=== PATIENT | female | born 1970 | race African-American/Black ===

== ENCOUNTER 2021-05-24 07:20 | Outpatient (REF) | payer MEDICAID, SELFPAY | END 2021-05-24 07:21 | disposition home or self-care (01) | LOC: HO.HOSX 07:20 | PROVIDERS: Visit Provider Physician Assistant | DX: Z13.89 Encounter for screening for other disorder (principal) ==

== ENCOUNTER 2021-07-16 07:10 | Outpatient (REF) | payer MEDICAID, SELFPAY ==
--- NOTE | ~2021-07-16 | XR_ITS ---
EXAMINATION: XR LEFT HIP WITH PELVIS CLINICAL INFORMATION: Left hip pain. COMPARISON: Left hip radiographs dated 05/17/2016 TECHNIQUE: AP view of the pelvis as well as AP and frog-leg lateral views of the left hip. FINDINGS: No acute fracture or dislocation. Mild left and right hip joint space narrowing with small marginal osteophytes. No osseous erosion. Enthesopathic spurring at the left anterior superior iliac spine. XR/XR hip LT w PEL1V IMPRESSION: Mild left and right hip osteoarthritis.
== END 2021-07-16 07:11 | disposition home or self-care (01) ==
LOC: HO.HOSX 07:10
PROVIDERS: Visit Provider Physician Assistant
DX: M25.552 Pain in left hip (principal); M54.16 Radiculopathy, lumbar region
CPT/HCPCS: 73502; 99202

== ENCOUNTER 2022-01-21 15:52 | Outpatient (REF) | payer MEDICAID, SELFPAY ==
--- NOTE | ~2022-01-21 | XR_ITS ---
EXAMINATION: XR HIP, LEFT , AP pelvis CLINICAL INFORMATION: Pain COMPARISON: None available at the time of this dictation. TECHNIQUE: Frontal and lateral views of the hip acquired. , AP pelvis FINDINGS: There is no evidence of acute fracture or dislocation. There are mild degenerative arthritic changes of the hip evident by sclerotic changes of the acetabular roof and narrowing of the joint space. Mild degenerative changes of the symphysis pubis. Mild degenerative changes of SI joints, there is bone protruding from the left iliac crest probably osteochondroma, this has not changed from prior exam. Adjacent pubic rami are intact. Surrounding soft tissues are unremarkable. XR/XR hip LT w PEL1V IMPRESSION: Mild bilateral degenerative osteoarthritis. Approximately 2 cm osseous structure protruding from the anterior superior iliac crest, this has not changed, probably osteochondroma.
== END 2022-01-21 15:53 | disposition home or self-care (01) ==
LOC: HO.XRAY 15:52
PROVIDERS: Absent Provider Registered Nurse; PCP Registered Nurse; Visit Provider Emergency Medicine
DX: M25.552 Pain in left hip (principal)
CPT/HCPCS: 73502

== ENCOUNTER 2022-02-11 16:11 | Outpatient (REF) | payer MEDICAID, SELFPAY ==
--- NOTE | ~2022-02-11 | XR_ITS ---
EXAMINATION: XR CERVICAL SPINE CLINICAL INFORMATION: Cervicalgia. History confusion, 2014. COMPARISON: Chest radiographs 07/28/2018 TECHNIQUE: The cervical spine is imaged in 4 views: AP, lateral, odontoid x2. FINDINGS: There is been prior fusion C3-C6 with anterior plate and screws and interbody bone grafts. There is incorporation of the grafts with the vertebral endplates. The hardware appears intact. There is no destructive process, osteolysis, or prevertebral soft tissue swelling. No vertebral compression or spondylolisthesis. The odontoid appears intact mild levocurvature upper thoracic spine similar to chest radiograph 2018. There is bridging anterior osteophyte at C2-C3 and smaller anterior partially bridging osteophyte at C6-C7 with borderline disc narrowing C6-C7. No perched facet. There are surgical clips anterior lower neck soft tissues, possibly prior fibroid surgery. The lung apices are clear. XR/XR cervical spine 3V IMPRESSION: -Status post anterior cervical fusion C3-C6. Hardware intact. No destructive process or osteolysis. -Bridging anterior vertebral osteophytes C2-C3 and C6-C7.
== END 2022-02-11 16:12 | disposition home or self-care (01) ==
LOC: HO.XRAY 16:11
PROVIDERS: PCP Nurse Practitioner Primary Care; Visit Provider Nurse Practitioner Primary Care
DX: M54.2 Cervicalgia (principal); Z98.1 Arthrodesis status
CPT/HCPCS: 72040

== ENCOUNTER → 2022-03-04 08:04 | Outpatient (BNVA) | payer MEDICAID, SELFPAY | PROVIDERS: PCP Nurse Practitioner Primary Care; Visit Provider Physician Assistant | DX: M54.16 Radiculopathy, lumbar region (principal) | CPT/HCPCS: 99212 ==

== ENCOUNTER → 2022-03-05 14:59 | Outpatient (BNVA) | payer MEDICAID, SELFPAY | PROVIDERS: PCP Nurse Practitioner Primary Care; Visit Provider Nurse Practitioner Family | DX: M96.1 Postlaminectomy syndrome, not elsewhere classified (principal) | CPT/HCPCS: 99212 ==

== ENCOUNTER 2022-03-11 09:17 | Emergency (ER) | payer MEDICAID, SELFPAY ==
--- NOTE | ~2022-03-11 | CT_ITS ---
EXAMINATION: CT HEAD WITHOUT CONTRAST CLINICAL INFORMATION: Headache. COMPARISON: No relevant prior imaging. TECHNIQUE: Contiguous axial imaging was performed from the skull base to vertex without intravenous administration of contrast. This CT examination was performed using dose optimization techniques as appropriate, variously including the following: *Automated exposure control *Adjustment of mA and/or kV according to patient size (this includes techniques or standardized protocols for targeted exams where dose is matched to indication/reason for exam; i.e. extremities or head) *Use of iterative reconstruction technique DLP: 595 mGy-cm FINDINGS: There is no acute intracranial hemorrhage or abnormal extra-axial collection. No intracranial mass effect or midline shift. Lateral and third ventricles are normal. No hydrocephalus. Dukes-white matter differentiation is preserved and there is no evidence of acute territorial infarct. The calvarium and skull base are intact. Mastoid air cells and middle ear cavities are well aerated. No active paranasal sinus disease. CT/CT head/brain wo con IMPRESSION: Normal CT scan of the head.
[2022-03-11 09:19] VITALS: BP 149/84; PULSE 58; RESP 18; TEMP 36.8; O2SAT 98; BMI 31.3
--- NOTE | 2022-03-11 09:33 | ED.HA ---
HPI - Headache General Chief Complaint: Headache Stated Complaint: migraines Time Seen by Provider: 03/11/22 09:21 Source: patient Mode of arrival: ambulatory Limitations: no limitations History of Present Illness HPI Narrative: 51-year-old female with history of migraine for most of her life came in for evaluation of migraine headache for the past 2 months, migraine has been fluctuating, associated with photophobia, nausea but no vomiting. Patient stated that the symptoms is typical to her regular migraine. Patient was seen by neurologist in the past and diagnosis of migraine was confirmed as reported by the patient. Patient declined any neurological deficit. Reportedly by the patient when the headache stay that long and becomes severe usually come to the get IV injection to relief her pain. Related Data Home Medications Medication Instructions Recorded Confirmed cholecalciferol (vitamin D3) 10 10 mcg PO DAILY 07/16/21 03/05/22 mcg (400 unit) capsule gabapentin 100 mg capsule 100 mg PO DAILY 07/16/21 03/05/22 amitriptyline 10 mg tablet 10 mg PO BEDTIME 03/04/22 03/05/22 valacyclovir 1 gram tablet 1,000 mg PO DAILY 03/04/22 03/05/22 albuterol sulfate 90 mcg/actuation 2 puff INHALATION Q6H PRN 03/05/22 03/05/22 aerosol inhaler Allergies Allergy/AdvReac Type Severity Reaction Status Date / Time Penicillins [PENICILLINS] Allergy Unknown UNKNOWN Verified 03/05/22 15:04 latex Allergy Mild Rash Uncoded 03/05/22 15:04 Review of Systems Review of Systems: All other systems are reviewed and are negative Constitutional: Reports as per HPI and Reports no additional constitutional complaints Eyes: Reports as per HPI and Reports no additional eye complaints Reports system reviewed and no additional complaints, except as documented Cardiovascular: Reports as per HPI and Reports no additional cardiovascular complaints Respiratory: Reports as per HPI and Reports no additional respiratory complaints Gastrointestinal: Reports as per HPI and Reports no additional gastrointestinal complaints Genitourinary: Reports no additional female genitourinary complaints Musculoskeletal: Reports no additional musculoskeletal complaints Skin/Breast: Reports system reviewed and no additional complaints, except as docu Psychiatric: Reports no additional psychiatric complaints Endocrine: Reports no additional endocrine complaints Hematologic/Lymphatic: Reports no additional hematologic/lymphatic complaints Allergic/Immunologic: Reports no additional allergic/immunologic complaints Reports system reviewed and no additional complaints, except as documented and Reports Abnormal speech present PMFSH Past Medical History Surgical History History of spinal surgery Hx of cervical spine surgery Social History Social History Advance Directives: No Advance Directives Information Provided: No Current occupational status: employed 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 Blood pressure normal. Heart rate normal. Respiration rate normal. Temperature normal. Oxygen saturation normal. Appearance: Alert. Oriented X3. No acute distress. Head: Normal external exam. Normocephalic. Atraumatic. No Meyers signs noted. No raccoon eyes noted Eyes: PERRLA. EOMI. Conjunctiva and sclera normal. Eyelids normal. ENT: TM's Normal. Pharynx normal. Uvula midline. Moist mucous membranes. No trismus noted. No drooling noted. No muffled voice noted. Neck: Normal inspection. Neck supple. FROM. No adenopathy. Thyroid Normal. No meningeal signs. No neck mass noted. CVS: Normal heart rate and rhythm. Heart sound normal. No murmurs noted. Pulses normal throughout. Respiratory: No respiratory distress. Painless inspiration. Breath sounds normal. No wheezes/rales/rhonchi noted. Chest nontender. No accessory muscle usage noted or decreased air movement noted. Abdomen: Soft and nontender. Bowel sounds normal in all 4 quadrants. No distention noted. No organomegaly noted. No visible injury noted. Back: No CVA tenderness. Full range of motion noted. Skin: Skin warm and dry. Normal skin color. Normal skin turgor. No rashes/lesions/lacerations noted. Extremities: No lower extremity edema. Extremities exhibit normal range of motion. Extremities nontender. Neuro: Oriented X 3. Cranial nerve exam: II-XII are grossly intact No motor deficit. No sensory deficit. Reflexes normal. Course Course Course Narrative: 51 years old female came in for evaluation migraine lasting for a month, patient with a history of migraine, patient's symptoms is typical for her regular migraine, neuro exam is unremarkable, CT of the head is unremarkable. Patient's symptoms has improved after morphine and Dilaudid with IV hydration and Benadryl. Patient was instructed to follow-up with her neurologist/PCP. MDM - Headache Imaging Data Head CT: Attestation: I personally reviewed and interpreted this imaging study as follows: Radiologist's impression: No acute intracranial pathology. Discharge Plan Discharge Clinical Impression: Migraine Patient Disposition: Home, Self-Care Instructions: Migraine Headache (ED) Prescriptions: No Action cholecalciferol (vitamin D3) 10 mcg (400 unit) capsule 10 mcg PO DAILY 0RF gabapentin 100 mg capsule 100 mg PO DAILY 0RF amitriptyline 10 mg tablet 10 mg PO BEDTIME 0RF valacyclovir 1 gram tablet 1,000 mg PO DAILY 0RF albuterol sulfate 90 mcg/actuation HFA aerosol inhaler 2 puff inhalation Q6H [id number] Referrals: Ana Gruber NP [Primary Care Provider] - Jez Sam MD [Physician] -
[2022-03-11] MEDS: Morphine Sulfate 2 MG/ML CARTRIDGE IVPUSH (09:48)
[2022-03-11] MEDS: 0.9 % Sodium Chloride 1,000 ML 999 ML IV (09:48)
[2022-03-11] MEDS: diphenhydrAMINE HCL 50 MG/ML VIAL 25 MG IVPUSH (09:49)
[2022-03-11] MEDS: ondansetron HCL 4 MG/2 ML VIAL IVPUSH (09:49)
[2022-03-11 10:49] VITALS: BP 143/80; PULSE 51; RESP 17; O2SAT 100
[2022-03-11] MEDS: HYDROmorphone HCl 1 MG/ML SYRINGE IVPUSH (10:50)
[2022-03-11 12:06] VITALS: BP 117/71; PULSE 50; RESP 14; O2SAT 99
== END 2022-03-11 12:28 | disposition home or self-care (01) ==
PROVIDERS: Emergency Provider Emergency Medicine; PCP Nurse Practitioner Primary Care
DX: G43.909 Migraine, unspecified, not intractable, without status migrainosus (principal)
CPT/HCPCS: 70450; 96361; 96374; 96375; 99283; 99284; J1170; J1200; J2270; J2405

== ENCOUNTER 2022-07-03 10:34 | Emergency (ER) | payer MEDICAID, SELFPAY ==
--- NOTE | ~2022-07-03 | XR_ITS ---
EXAMINATION: XR CHEST CLINICAL INFORMATION: Cough and vomiting COMPARISON: None TECHNIQUE: 2 views of the chest were obtained. FINDINGS: Lungs are mildly hypoinflated and clear. Trachea is midline in position. No interstitial disease, consolidation or mass. No pleural effusion or pneumothorax. Cardiac silhouette and pulmonary vessels are normal in size. The mediastinum and lnidsay have normal contour. No acute skeletal findings. Cervical spine fusion hardware is partially included in the [id number]. There has been cement augmentation of L1 and L2 vertebral bodies. XR/XR chest 2V IMPRESSION: No evidence of pneumonia. No acute cardiopulmonary abnormality.
[2022-07-03 11:15] VITALS: BP 140/86; PULSE 82; RESP 18; TEMP 37.2; O2SAT 95; BMI 31.3
[2022-07-03 11:32] LABS: Basophils Percent Auto 0.3 % (0-2); Hematocrit 46.6 % (37.0-47.0); Hemoglobin 15.7 g/dl (12.0-16.0); Lymphocytes Absolute Auto 1.6 X10*3/uL (1.2-4.9); Lymphocytes Percent Auto 54.1 % (20-40); MANUAL DIFF FLAG SCAN; Mean Corpuscular HGB Conc 33.7 g/dl (31.0-35.0); Mean Corpuscular Hemoglobin 30.7 pg (27.0-33.0); Mean Platelet Volume 9.8 fL (9.4-12.3); Monocytes Absolute Auto 0.4 X10*3/uL (0.1-1.2); Monocytes Percent Auto 13.4 % (2-11); Neutrophils Absolute Auto 0.9 x10*3/uL (2.0-8.3); Neutrophils Percent Auto 32.2 % (45-73); Platelet Count 251 X10*3/uL (160-400); Red Blood Count 5.12 X10*6/uL (4.20-5.50); Red Cell Distribution Width 12.4 % (11.0-16.0); SCAN SMEAR FLAG 1; White Blood Count 2.9 X10*3/uL (4.8-10.8)
[2022-07-03 11:43] LABS: COVID-19 Test Positive (Negative); IDNOW Serial# 16C4AD1C
[2022-07-03 11:51] LABS: Anion Gap 20 (12-20); Blood Urea Nitrogen 16 mg/dL (9-16); Calcium 9.2 mg/dL (8.4-10.2); Carbon Dioxide 21 mmol/L (22-29); Chloride 102 mmol/L (96-108); Creatinine Clr Calc Pharmacy 97.7; Estimated Glomerular Filt Rate > 60; Glucose Random 102 mg/dL (60-115); Sodium 139 mmol/L (135-145)
[2022-07-03 11:51] LABS: IDNOW Serial# 9DD0AD1C; Influenza A Negative (Negative); Influenza B2 Negative (Negative)
[2022-07-03 12:05] LABS: SLIDE REVIEW VERIFIED
[2022-07-03 14:19] VITALS: BP 164/81; PULSE 64; RESP 14; TEMP 36.8; O2SAT 100
--- NOTE | 2022-07-03 14:58 | ED_ITS ---
HPI - General Adult General Chief complaint: General Medical Stated complaint: Nauseous, Diarrhea Time Seen by Provider: 07/03/22 14:45 Source: patient Mode of arrival: ambulatory History of Present Illness HPI narrative: 52-year-old female with no significant past medical history presenting to the ED complaining of chills, malaise/fatigue, myalgias, rhinorrhea, cough, and nausea x6 days. Admits tested positive on home COVID-19 test on Thursday. States symptoms are not improving. Denies chest pain, shortness of breath, abdominal pain, vomiting, diarrhea, recent travel. Son presenting to ED with similar symptoms. Onset (ago): day(s) Related Data Home Medications Medication Instructions Recorded Confirmed cholecalciferol (vitamin D3) 10 10 mcg PO DAILY 07/16/21 03/05/22 mcg (400 unit) capsule gabapentin 100 mg capsule 100 mg PO DAILY 07/16/21 03/05/22 amitriptyline 10 mg tablet 10 mg PO BEDTIME 03/04/22 03/05/22 valacyclovir 1 gram tablet 1,000 mg PO DAILY 03/04/22 03/05/22 albuterol sulfate 90 mcg/actuation 2 puff inhalation Q6H PRN 03/05/22 03/05/22 aerosol inhaler Previous Rx's Medication Instructions Recorded ondansetron 4 mg disintegrating 4 mg PO Q8H PRN nausea and 07/03/22 tablet vomiting #10 tabs Allergies Allergy/AdvReac Type Severity Reaction Status Date / Time Penicillins [PENICILLINS] Allergy Unknown UNKNOWN Verified 03/05/22 15:04 latex Allergy Mild Rash Uncoded 03/05/22 15:04 Review of Systems Review of Systems: Constitutional: No Fever, + Chills, +fatigue, +malaise ENT/Mouth: No Ear Pain, + Nasal Congestion, No Sinus Pain, No Hoarseness, + sore throat, + Rhinorrhea, No Swallowing Difficulty Cardiovascular: No Chest Pain, No SOB Respiratory: + Cough, No Sputum, No Wheezing Gastrointestinal: + Nausea, No Vomiting, No Diarrhea, No Constipation, No Abdominal pain Genitourinary: No Dysuria, No Urinary Frequency, No Hematuria, No Flank Pain Musculoskeletal: No joint pain, No Myalgias, No Joint Swelling Skin: No Skin Lesions, No rash Neuro: No Weakness, No Numbness, No Paresthesias Yes all other systems are revi ewed and are negative Constitutional: Constitutional: Reports as per [facility] Past Medical History Attestation statement: The following information was validated with the patient. 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 Exam ED Vital Signs: Vital Signs - 24 hr 07/03/22 11:15 07/03/22 14:19 Temperature 98.9 F 98.3 F Pulse Rate 82 64 Respiratory Rate 18 14 Blood Pressure 140/86 H 164/81 H Pulse Oximetry 95 100 Oxygen Delivery Method Room Air Room Air BMI result Body Mass Index 31.3 Const General: cooperative, healthy appearing and no acute distress Orientation/consciousness: patient oriented x3 Limitations: no limitations HENMT Head: Yes normal to inspection and Yes atraumatic Ears: hearing grossly normal bilaterally, TM's normal bilaterally and mastoids normal General nose exam: Normal external nose present Face and sinus: Yes normal facial exam Mouth: Normal oral and palatal mucosa present Throat: Yes posterior oropharynx normal, Yes tonsils normal, Yes uvula midline and No peritonsillar mass Eyes General: appearance normal, both eyes and all related structures EOM: EOMs intact bilaterally Neck Neck: Yes normal visual inspection and Yes no meningeal signs Resp Effort & Inspection: normal respiratory effort and no respiratory distress Auscultation: clear to auscultation bilaterally, no crackles, no rales and no rhonchi Cardio Rate: regular rate Heart sounds: S1 normal heart sound present and S2 normal heart sound present GI Inspection: Yes normal to inspection Palpation (GI): Soft to palpation, nontender, no guarding and not rigid Skin Rashes: no rashes Wounds: no wounds Neuro General: patient oriented x3, tone normal and no meningeal signs Gait exam (Neuro): Normal gait present Extrem General: Yes normal to inspection Course Course Course Narrative: -COVID-19 positive -leukopenia of 2.9 as expected from COVID-19 infection. Labs otherwise unremarkable XR chest 2V IMPRESSION: No evidence of pneumonia. No acute cardiopulmonary abnormality. -patient tolerated PO in the ED Results discussed with patient including worrisome signs and symptoms and strict return precautions, and when to return to the emergency department. They verbalized understanding and feel safe for discharge at this time. Medical Decision Making MDM Narrative Medical decision making narrative: 52-year-old female with no significant past medical history presenting to the ED complaining of chills, malaise/fatigue, myalgias, rhinorrhea, cough, and nausea x6 days. On exam vital signs stable, NAD, nontoxic appearing, lungs CTA, exam otherwise nonfocal. Concern for COVID-19/viral illness. Rule viral pneumonia. Low suspicion for intra-abdominal pathology Plan: COVID-19 testing, labs, CXR, PO Motrin/Zofran Medical Records Medical records reviewed: Yes I reviewed the patient's medical records. Lab Data Lab results reviewed: Yes I reviewed the patient's lab results. Result diagrams: 07/03/22 11:27 07/03/22 11:27 Labs: Lab Results 07/03/22 07/03/22 07/03/22 Range/Units 11:19 11:19 11:27 WBC 2.9 L (4.8-10.8) X10*3/uL RBC 5.12 (4.20-5.50) X10*6/uL Hgb 15.7 (12.0-16.0) g/dl Hct 46.6 (37.0-47.0) % MCV 91.0 (80.0-98.0) fL MCH 30.7 (27.0-33.0) pg MCHC 33.7 (31.0-35.0) g/dl RDW 12.4 (11.0-16.0) % Plt Count 251 (160-400) X10*3/uL MPV 9.8 (9.4-12.3) fL Immature Gran % (Auto) 0.0 (0.0-0.4) % Neut % (Auto) 32.2 L (45-73) % Lymph % (Auto) 54.1 H (20-40) % [place] % (Auto) 13.4 H (2-11) % Eos % (Auto) 0.0 (0-4) % Baso % (Auto) 0.3 (0-2) % Lymph # (Auto) 1.6 (1.2-4.9) X10*3/uL [place] # (Auto) 0.4 (0.1-1.2) X10*3/uL Eos # (Auto) 0.0 (0.0-0.4) X10*3/uL Baso # (Auto) 0.0 (0.0-0.2) X10*3/uL Abs Immat Gran (auto) 0.00 (0.00-0.03) X10*3/uL Absolute Neuts (auto) 0.9 L (2.0-8.3) x10*3/uL Absolute Nucleated RBC 0.000 (0.0-0.012) X10*3/uL Nucleated RBC % (auto) 0.0 (0.0-0.2) /100WBC Smear Tech's Comments VERIFIED Sodium (135-145) mmol/L Potassium (3.3-5.1) mmol/L Chloride (96-108) mmol/L Carbon Dioxide (22-29) mmol/L Anion Gap (12-20) BUN (9-16) mg/dL Creatinine (0.5-1.4) mg/dL Estim Creat Clear Calc Estimated GFR Random Glucose (60-115) mg/dL Calcium (8.4-10.2) mg/dL COVID-19 (BILL) Positive A (Negative) COVID-19 Clin Com See Note Influenza Type A (RAYO) Negative (Negative) Influenza Type B (RAYO) Negative (Negative) Influenza A & B Note See Note 07/03/22 Range/Units 11:27 WBC (4.8-10.8) X10*3/uL RBC (4.20-5.50) X10*6/uL Hgb (12.0-16.0) g/dl Hct (37.0-47.0) % MCV (80.0-98.0) fL MCH (27.0-33.0) pg MCHC (31.0-35.0) g/dl RDW (11.0-16.0) % Plt Count (160-400) X10*3/uL MPV (9.4-12.3) fL Immature Gran % (Auto) (0.0-0.4) % Neut % (Auto) (45-73) % Lymph % (Auto) (20-40) % [place] % (Auto) (2-11) % Eos % (Auto) (0-4) % Baso % (Auto) (0-2) % Lymph # (Auto) (1.2-4.9) X10*3/uL [place] # (Auto) (0.1-1.2) X10*3/uL Eos # (Auto) (0.0-0.4) X10*3/uL Baso # (Auto) (0.0-0.2) X10*3/uL Abs Immat Gran (auto) (0.00-0.03) X10*3/uL Absolute Neuts (auto) (2.0-8.3) x10*3/uL Absolute Nucleated RBC (0.0-0.012) X10*3/uL Nucleated RBC % (auto) (0.0-0.2) /100WBC Smear Tech's Comments Sodium 139 (135-145) mmol/L Potassium 4.0 (3.3-5.1) mmol/L Chloride 102 (96-108) mmol/L Carbon Dioxide 21 L (22-29) mmol/L Anion Gap 20 (12-20) BUN 16 (9-16) mg/dL Creatinine 0.77 (0.5-1.4) mg/dL Estim Creat Clear Calc 97.7 Estimated GFR > 60 Random Glucose 102 (60-115) mg/dL Calcium 9.2 (8.4-10.2) mg/dL COVID-19 (BILL) (Negative) COVID-19 Clin Com Influenza Type A (RAYO) (Negative) Influenza Type B (RAYO) (Negative) Influenza A & B Note Discharge Plan Discharge Clinical Impression: COVID-19 Patient Disposition: Home, Self-Care Instructions: COVID-19 (Coronavirus Disease 2019) (ED) Additional Instructions: -your blood work and chest x-ray are reassuring.. Zofran as antinausea medication, take as needed for nausea and vomiting At this time you will be okay for discharge. Please self isolate for 10-14 days. Do not expose yourself to others. You may not go to work or school. Please continue to follow cold instructions and wash your hands frequently. You may take Tylenol / Motrin as directed on the bottle for pain or fever. If you have constant or persistent shortness of breath, fever unresolved with medications, chest pain, or your unable to eat or drink please return to the ED CDC Guidelines for home isolation: - Stay away from others - WEAR A MASK if you are sick AND STAY HOME - Cover your mouth and nose with a tissue when you cough or sneeze. Dispose of tissues in a lined trash can and wash your hands immediately with soap and water for at least 20 seconds. If soap and water are not available, clean hands with alcohol-based hand needle punch machine operator that contains at least 60% alcohol. - Clean your hands often with soap and water for at least 20 seconds - Avoid touching your eyes, nose and mouth with unwashed hands - Do not share dishes, drinking glasses, cups, eating utensils, towels, or bed ding with other people in your home. After using these items, wash them thoroughly with soap and water or put in the community action worker. - Clean high-touch surfaces in your isolation area ( sick room and bathroom) every day; let a caregiver clean and disinfect high-touch surfaces in other areas of the home. Clean the area or item with soap and water or another detergent if it is dirty. Then, use a household disinfectant. - Limit contact with pets and animals: If you must care for a pet, wash your saldivar ds before and after interacting with them) Prescriptions: New ondansetron 4 mg tablet,disintegrating 4 mg PO Q8H PRN (Reason: nausea and vomiting) Qty: 10 0RF No Action cholecalciferol (vitamin D3) 10 mcg (400 unit) capsule 10 mcg PO DAILY gabapentin 100 mg capsule 100 mg PO DAILY amitriptyline 10 mg tablet 10 mg PO BEDTIME valacyclovir 1 gram tablet 1,000 mg PO DAILY albuterol sulfate 90 mcg/actuation HFA aerosol inhaler 2 puff inhalation Q6H PRN Referrals: Ana Gruber NP [Primary Care Provider] - 10 days Stand Alone Forms: Work/School Release
[2022-07-03] MEDS: Ondansetron ODT 4 MG TAB.RAPDIS TRANSLINGU (15:00)
[2022-07-03] MEDS: Ibuprofen 600 MG TABLET PO (15:01)
== END 2022-07-03 16:22 | disposition home or self-care (01) ==
PROVIDERS: Emergency Provider Student in an Organized Health Care Education/Training Program; PCP Nurse Practitioner Primary Care
DX: U07.1 COVID-19 (principal)
CPT/HCPCS: 36415; 71046; 80048; 85025; 87502; 87635; 99283; 99284

== ENCOUNTER 2022-09-19 09:58 | Outpatient (REF) | payer MEDICAID, SELFPAY ==
--- NOTE | ~2022-09-19 | MM_ITS ---
EXAMINATION: MM SCREENING DIGITAL BREAST TOMOSYNTHESIS, BILATERAL CLINICAL INFORMATION: Screening. Asymptomatic. The lifetime risk of breast cancer based on the Tyrer-Cuzick Model is 4.7%. COMPARISON: Mammography: October 19, 2017 and September 26, 2016 TECHNIQUE: Digital breast tomosynthesis is performed in both the craniocaudal and mediolateral oblique views along with computer-aided detection (CAD). Synthesized 2D images are generated from the tomosynthesis. FINDINGS: The breasts are heterogeneously dense, which may obscure small masses (ACR BI-RADS breast composition Category c). There are no significant masses, abnormal calcifications, or other abnormalities. MM/MM tomosynthesis screening BI IMPRESSION: No significant changes ASSESSMENT: BI-RADS 1: Negative RECOMMENDATION: Routine annual mammography screening. This patient's information was entered into a reminder system with a target due date for their next mammogram.
== END 2022-09-19 09:59 | disposition home or self-care (01) ==
LOC: HO.MAMMO 09:58
PROVIDERS: PCP Nurse Practitioner Primary Care; Visit Provider Nurse Practitioner Primary Care
DX: Z12.31 Encounter for screening mammogram for malignant neoplasm of breast (principal)
CPT/HCPCS: 77063; 77067

== ENCOUNTER → 2023-01-13 13:29 | Outpatient (BNVA) | payer MEDICAID, SELFPAY | PROVIDERS: PCP Nurse Practitioner Primary Care; Visit Provider Nurse Practitioner Family | DX: Z12.11 Encounter for screening for malignant neoplasm of colon (principal); K21.9 Gastro-esophageal reflux disease without esophagitis | CPT/HCPCS: 99202 ==

== ENCOUNTER 2023-02-18 19:06 | Emergency (ER) | payer MEDICAID, SELFPAY ==
--- NOTE | ~2023-02-18 | CT_ITS ---
EXAMINATION: CT ABDOMEN AND PELVIS WITHOUT CONTRAST CLINICAL INFORMATION: Left lower quadrant tenderness, nausea and vomiting. COMPARISON: None available. TECHNIQUE: Multidetector volumetric imaging was performed from the superior aspect of the liver through the pubic symphysis. Sagittal and coronal reformatted images were obtained on the technologist's workstation. This CT examination was performed using dose optimization techniques as appropriate, variously including the following: *Automated exposure control *Adjustment of mA and/or kV according to patient size (this includes techniques or standardized protocols for targeted exams where dose is matched to indication/reason for exam; i.e. extremities or head) *Use of iterative reconstruction technique DLP: 655 mGy-cm FINDINGS: LUNG BASES: The visualized lung bases are unremarkable. LIVER, GALLBLADDER, AND BILIARY TREE: The liver is normal in size, shape, and mildly diminished in attenuation. Within the left hepatic lobe (4:3), a 1.2 cm cyst is seen with precontrast Hounsfield value of -6.9 units. This is a benign finding, for which no imaging follow-up is recommended. No biliary ductal dilatation is present. The gallbladder is surgically absent. PANCREAS: Unremarkable. SPLEEN: Unremarkable. ADRENAL GLANDS: Unremarkable. KIDNEYS AND URETERS: The kidneys are normal in size, shape, and attenuation. No hydronephrosis, hydroureter, or calculi seen. No perinephric stranding. BLADDER: Unremarkable. GASTROINTESTINAL TRACT: There is mild diverticulosis. Adjacent to diverticula at the junction of the descending and proximal sigmoid colon segments (3:62), there is vigorous focal paracolic fat stranding. There is a small amount of free fluid layering along the left paracolic gutter. There is no mass or paracolic lymphadenopathy noted. No obstruction, free intraperitoneal air or discrete abscess is seen. The vermiform appendix is normal. ABDOMINAL WALL: There is a small fat-containing umbilical hernia. There is a very small fat-containing right inguinal hernia. LYMPH NODES: Adjacent to the gallbladder fossa (3:24), a 1.2 x 0.9 cm lymph node is seen. There are 1.4 x 1.2 cm and 6 mm perigastric lymph nodes (3:24 and 26). Superficial to the pancreas (3:21) a 1.6 x 1.3 cm peripherally calcified lymph node versus focus of fat necrosis is noted. VASCULAR: Unremarkable. PELVIC VISCERA: The uterus and adnexa are unremarkable. OSSEOUS STRUCTURES: There are post-vertebroplasty changes at L1 and L2. There is degenerative disc disease at L4-L5. No acute or aggressive osseous abnormality is seen. CT/CT abdomen pelvis wo IV con IMPRESSION: 1. Findings are consistent with acute diverticulitis of the junction of the descending and proximal sigmoid colon segments. There is a small amount of free fluid layering along the left paracolic gutter. No focal abscess or free intraperitoneal air is seen. Recommend appropriate clinical management and follow-up imaging as clinically indicated. 2. There are nonspecific probable lymph nodes situated within the gallbladder fossa, the perigastric region and the peripancreatic region. Some are mildly enlarged. These should be managed on a clinical basis. At a minimum, recommend short-term follow-up CT imaging in 3-6 months to ensure stability/regression. 3. There are post-vertebroplasty and degenerative changes of the lumbar spine. No aggressive osseous lesion is seen. Fleischner guidelines were followed.
[2023-02-18 19:16] VITALS: BP 147/93; PULSE 58; RESP 18; TEMP 37.2; O2SAT 100; BMI 31.6
--- NOTE | 2023-02-18 19:18 | ED.ABDPAIN ---
HPI - Abdominal Pain General Chief Complaint: Abdominal Pain <JUDITH Lambert - Last Filed: 02/18/23 19:22> Stated Complaint: abdominal pain, N/V, knot pain in groin <JUDITH Lambetr - Last Filed: 02/18/23 19:22> Time Seen by Provider: 02/18/23 21:07 <JUDITH Lambert - Last Filed: 02/18/23 19:22> Source: patient <Shena Lynch MD - Last Filed: 02/18/23 22:55> Mode of arrival: ambulatory <Shena Lynch MD - Last Filed: 02/18/23 22:55> Limitations: no limitations <Shena Lynch MD - Last Filed: 02/18/23 22:55> History of Present Illness HPI narrative: Patient comes to the emergency room complaining of 3 days of suprapubic pressure. Patient states that when she has a bowel movement she can feel something dropping down to the vaginal vault, patient thinks it is her uterus or bladder. Patient states he does not hurt but it feels something heavy move down words. Patient denies any hematuria or dysuria, no vaginal discharge. Patient states that she has history of urine problems in the past <Shena Lynch MD - Last Filed: 02/18/23 22:55> Related Data Home Medications: Home Medications Medication Instructions Recorded Confirmed cholecalciferol (vitamin D3) 10 10 mcg PO DAILY 07/16/21 03/05/22 mcg (400 unit) capsule gabapentin 100 mg capsule 100 mg PO DAILY 07/16/21 03/05/22 amitriptyline 10 mg tablet 10 mg PO BEDTIME 03/04/22 03/05/22 valacyclovir 1 gram tablet 1,000 mg PO DAILY 03/04/22 03/05/22 albuterol sulfate 90 mcg/actuation 2 puff inhalation Q6H PRN 03/05/22 03/05/22 aerosol inhaler albuterol sulfate 90 mcg/actuation 2 puff inhalation Q6H PRN 09/01/22 aerosol inhaler (ProAir HFA) fluticasone propionate 110 1 puff inhalation BID 09/01/22 mcg/actuation HFA aerosol inhaler (Flovent HFA) naproxen 500 mg tablet 500 mg PO BID 09/01/22 sumatriptan succinate 50 mg tablet 50 mg PO Q2-4H PRN 09/01/22 (Imitrex) valacyclovir 500 mg tablet 1,000 mg PO DAILY 09/01/22 varicella-zoster gE vac,2 of 2 50 IM 09/01/22 mcg IM suspension (Shingrix gE Antigen Component) Previous Rx's Medication Instructions Recorded ondansetron 4 mg disintegrating 4 mg PO Q8H PRN nausea and 07/03/22 tablet vomiting #10 tabs bisacodyl 5 mg tablet,delayed 10 mg PO ONCE 1 day #2 tabs 01/13/23 release (Dulcolax (bisacodyl)) famotidine 20 mg tablet (Pepcid) 20 mg PO BEDTIME #30 tabs 01/13/23 polyethylene glycol 3350 17 238 g PO ONCE #238 grams 01/13/23 gram/dose oral powder (Miralax) levofloxacin 500 mg tablet 500 mg PO DAILY #9 tabs 02/18/23 metronidazole 500 mg tablet 500 mg PO BID #19 tabs 02/18/23 <JUDITH Lambert - Last Filed: 02/18/23 19:22> Allergies/Adverse Reactions: Allergies Allergy/AdvReac Type Severity Reaction Status Date / Time Penicillins [PENICILLINS] Allergy Unknown UNKNOWN Verified 01/13/23 13:53 latex Allergy Mild Rash Uncoded 01/13/23 13:53 <JUDITH Lambert - Last Filed: 02/18/23 19:22> Review of Systems Review of Systems Constitutional : No Weight loss, No Fever, No Chills, No Night Sweats, No Fatigue, No Malaise ENT/Mouth : No Hearing loss, No Ear Pain, No Nasal Congestion, No Sinus Pain, No Hoarseness, No sore throat, No Rhinorrhea, No Swallowing Difficulty Eyes: No Eye Pain, No Swelling, No Redness, No Foreign Body, No Discharge, No Vision Changes Cardiovascular : No Chest Pain, No SOB, No Dyspnea on Exertion, No Orthopnea, No Edema, No Palpitations Respiratory : No Cough, No Sputum, No Wheezing, No Smoke Exposure, No Dyspnea Gastrointestinal : No Nausea, No Vomiting, No Diarrhea, No Constipation, No abdominal Pain, No Hematochezia, No Melena Genitourinary : Patient complaining of her uterus possibly bulging into the vaginal canal with bearing down, no irregular bleeding, No Dysuria, No Urinary Frequency, No Hematuria, No Urinary Incontinence, No Urgency, No Flank Pain, No Urinary Flow Changes, No Hesitancy Musculoskeletal : No joint pain, No Myalgias, No Joint Swelling Skin : No Skin Lesions, No rash Neuro : No Weakness, No Numbness, No Paresthesias, No Loss of Consciousness, No Dizziness, No Headache Psych : No Anxiety/Panic, No Depression, No SI/HI/AH/VH, No Social Issues, Heme/Lymph: No Bruising, No Bleeding,No Lymphadenopathy Endocrine : No Polyuria, No Polydipsia, No Temperature Intolerance <Shena Lynch MD - Last Filed: 02/18/23 22:55> [facility] Past Medical History Surgical History: Surgical History (Updated 01/13/23 @ 13:57 by Franki Fisher) History of spinal surgery Hx of cervical spine surgery Hx of tubal ligation <JUDITH Lambert - Last Filed: 02/18/23 19:22> Family History Family History: Family History (Updated 01/13/23 @ 13:56 by Franki Fisher) Mother HTN (hypertension) Diabetes Father No problems noted. 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/[employer] <JUDITH Lambert - Last Filed: 02/18/23 19:22> Physical Exam ED Vital Signs: Vital Signs - 24 hr 02/18/23 19:16 02/18/23 22:01 Temperature 98.9 F 97.8 F Pulse Rate 58 51 Respiratory Rate 18 18 Blood Pressure 147/93 H 137/67 Pulse Oximetry 100 100 Oxygen Delivery Method Room Air Room Air BMI result Body Mass Index 31.6 <JUDITH Lambert - Last Filed: 02/18/23 19:22> Vital Signs - 24 hr 02/18/23 19:16 02/18/23 22:01 Temperature 98.9 F 97.8 F Pulse Rate 58 51 Respiratory Rate 18 18 Blood Pressure 147/93 H 137/67 Pulse Oximetry 100 100 Oxygen Delivery Method Room Air Room Air BMI result Body Mass Index 31.6 <Shena Lynch MD - Last Filed: 02/18/23 22:55> Const Other: Appearance: Alert. Oriented X3. No acute distress. Eyes: Pupils equal, round and reactive to light. ENT: Pharynx normal. Neck: Normal inspection. Neck supple. No lymph nodes noted. No crepitus CVS: Normal heart rate and rhythm. Pulses normal. Normal S1 and S2 Respiratory: No respiratory distress. Breath sounds normal. No Wheezing. No rales Abdomen: Soft and nontender. No rigidity. No distention. No palpable hernias Skin: Skin warm and dry. Normal skin color. Normal skin turgor. Extremities: No lower extremity edema. No Lacerations. No Rash Neuro: Oriented X 3. No motor deficit. No sensory deficit. Moving all extremities. No slurred speech. CN 2 through 12 grossly intact Psych: calm, cooperative, normal affect <Shena Lynch MD - Last Filed: 02/18/23 22:55> Course Course Course Narrative: RME - 52 yo female presents to the ER for evaluation of acute onset of lower abdominal pain, nausea, vomiting that started at 3am yesterday. She also reported a hard time urinating and pain with urination. +lower back pain, worse on the left. No fever, hematuria. +LLQ tenderness on exam. Plan: labs, UA, CT abd/pelvis <JUDITH Lambert - Last Filed: 02/18/23 19:22> Medical Decision Making Medical Decision Making [facility] Narrative: -patient's hematology, chemistry and urine within normal limits. -CT scan shows diverticulitis. Patient's abdominal exam was fairly benign -patient was given the 1st dose of Levaquin and metronidazole in the emergency room -discussed with the patient that if she continues having suprapubic pressure especially with bearing down, she may have the uterus versus bladder prolapse, patient will follow-up with her primary care physician <Shena Lynch MD - Last Filed: 02/18/23 22:55> Lab Data [facility] Lab Attestation statement: I reviewed the patient's lab results. <Shena Lynch MD - Last Filed: 02/18/23 22:55> Result Diagrams: 02/18/23 19:30 02/18/23 19:30 <JUDITH Lambert - Last Filed: 02/18/23 19:22> Labs: Lab Results 02/18/23 02/18/23 02/18/23 Range/Units 19:30 19:30 20:40 WBC 7.8 (4.8-10.8) X10*3/uL RBC 4.25 (4.20-5.50) X10*6/uL Hgb 13.1 (12.0-16.0) g/dl Hct 39.7 (37.0-47.0) % MCV 93.4 (80.0-98.0) fL MCH 30.8 (27.0-33.0) pg MCHC 33.0 (31.0-35.0) g/dl RDW 12.6 (11.0-16.0) % Plt Count 252 (160-400) X10*3/uL MPV 9.9 (9.4-12.3) fL Immature Gran % (Auto) 0.1 (0.0-0.4) % Neut % (Auto) 52.6 (45-73) % Lymph % (Auto) 37.7 (20-40) % [place] % (Auto) 7.5 (2-11) % Eos % (Auto) 1.8 (0-4) % Baso % (Auto) 0.3 (0-2) % Lymph # (Auto) 2.9 (1.2-4.9) X10*3/uL [place] # (Auto) 0.6 (0.1-1.2) X10*3/uL Eos # (Auto) 0.1 (0.0-0.4) X10*3/uL Baso # (Auto) 0.0 (0.0-0.2) X10*3/uL Abs Immat Gran (auto) 0.01 (0.00-0.03) X10*3/uL Absolute Neuts (auto) 4.1 (2.0-8.3) x10*3/uL Absolute Nucleated RBC 0.000 (0.0-0.012) X10*3/uL Nucleated RBC % (auto) 0.0 (0.0-0.2) /100WBC Sodium 141 (135-145) mmol/L Potassium 3.4 (3.3-5.1) mmol/L Chloride 102 (96-108) mmol/L Carbon Dioxide 31 H (22-29) mmol/L Anion Gap 11 L (12-20) BUN 13 (9-16) mg/dL Creatinine 0.72 (0.5-1.4) mg/dL Estim Creat Clear Calc 105.0 Estimated GFR > 60 Random Glucose 122 H (60-115) mg/dL Calcium 9.9 D (8.4-10.2) mg/dL Magnesium 2.0 (1.6-2.6) mg/dL Total Bilirubin 0.5 (0.0-1.0) mg/dL Direct Bilirubin 0.1 (0.0-0.5) mg/dL AST 15 (5-31) U/L ALT 19 (0-31) U/L Alkaline Phosphatase 94 (39-117) U/L Total Protein 7.6 (6.5-8.0) g/dL Albumin 4.2 (3.5-5.0) g/dL Lipase 23 (8-78) U/L Urine Color Yellow Urine Appearance Clear Urine pH 6.0 (5.0-9.0) Ur Specific [place] 1.020 (1.005-1.025) Urine Protein Negative (Neg-Trace) mg/dL Urine Glucose (UA) Negative (Negative) mg/dL Urine Ketones Negative (Negative) mg/dL Urine Blood Negative (Negative) Urine Nitrite Negative (Negative) Ur Leukocyte Esterase Negative (Negative) <JUDITH Lambert - Last Filed: 02/18/23 19:22> Lab Results 02/18/23 02/18/23 02/18/23 Range/Units 19:30 19:30 20:40 WBC 7.8 (4.8-10.8) X10*3/uL RBC 4.25 (4.20-5.50) X10*6/uL Hgb 13.1 (12.0-16.0) g/dl Hct 39.7 (37.0-47.0) % MCV 93.4 (80.0-98.0) fL MCH 30.8 (27.0-33.0) pg MCHC 33.0 (31.0-35.0) g/dl RDW 12.6 (11.0-16.0) % Plt Count 252 (160-400) X10*3/uL MPV 9.9 (9.4-12.3) fL Immature Gran % (Auto) 0.1 (0.0-0.4) % Neut % (Auto) 52.6 (45-73) % Lymph % (Auto) 37.7 (20-40) % [place] % (Auto) 7.5 (2-11) % Eos % (Auto) 1.8 (0-4) % Baso % (Auto) 0.3 (0-2) % Lymph # (Auto) 2.9 (1.2-4.9) X10*3/uL [place] # (Auto) 0.6 (0.1-1.2) X10*3/uL Eos # (Auto) 0.1 (0.0-0.4) X10*3/uL Baso # (Auto) 0.0 (0.0-0.2) X10*3/uL Abs Immat Gran (auto) 0.01 (0.00-0.03) X10*3/uL Absolute Neuts (auto) 4.1 (2.0-8.3) x10*3/uL Absolute Nucleated RBC 0.000 (0.0-0.012) X10*3/uL Nucleated RBC % (auto) 0.0 (0.0-0.2) /100WBC Sodium 141 (135-145) mmol/L Potassium 3.4 (3.3-5.1) mmol/L Chloride 102 (96-108) mmol/L Carbon Dioxide 31 H (22-29) mmol/L Anion Gap 11 L (12-20) BUN 13 (9-16) mg/dL Creatinine 0.72 (0.5-1.4) mg/dL Estim Creat Clear Calc 105.0 Estimated GFR > 60 Random Glucose 122 H (60-115) mg/dL Calcium 9.9 D (8.4-10.2) mg/dL Magnesium 2.0 (1.6-2.6) mg/dL Total Bilirubin 0.5 (0.0-1.0) mg/dL Direct Bilirubin 0.1 (0.0-0.5) mg/dL AST 15 (5-31) U/L ALT 19 (0-31) U/L Alkaline Phosphatase 94 (39-117) U/L Total Protein 7.6 (6.5-8.0) g/dL Albumin 4.2 (3.5-5.0) g/dL Lipase 23 (8-78) U/L Urine Color Yellow Urine Appearance Clear Urine pH 6.0 (5.0-9.0) Ur Specific [place] 1.020 (1.005-1.025) Urine Protein Negative (Neg-Trace) mg/dL Urine Glucose (UA) Negative (Negative) mg/dL Urine Ketones Negative (Negative) mg/dL Urine Blood Negative (Negative) Urine Nitrite Negative (Negative) Ur Leukocyte Esterase Negative (Negative) <Shena Lynch MD - Last Filed: 02/18/23 22:55> Radiology Impression Discussion of test interpretation with radiology: I have reviewed the radiologist's reading. <Shena Lynch MD - Last Filed: 02/18/23 22:55> Radiologist Impression: FINDINGS: LUNG BASES: The visualized lung bases are unremarkable.? LIVER, GALLBLADDER, AND BILIARY TREE: The liver is normal in size, shape, and mildly diminished in attenuation. Within the left hepatic lobe (4:3), a 1.2 cm cyst is seen with precontrast Hounsfield value of -6.9 units. This is a benign finding, for which no imaging follow-up is recommended. No biliary ductal dilatation is present. The gallbladder is surgically absent.? PANCREAS: Unremarkable.? SPLEEN: Unremarkable.? ADRENAL GLANDS: Unremarkable.? KIDNEYS AND URETERS: The kidneys are normal in size, shape, and attenuation. No hydronephrosis, hydroureter, or calculi seen. No perinephric stranding. ? BLADDER: Unremarkable.? GASTROINTESTINAL TRACT: There is mild diverticulosis. Adjacent to diverticula at the junction of the descending and proximal sigmoid colon segments (3:62), there is vigorous focal paracolic fat stranding. There is a small amount of free fluid layering along the left paracolic gutter. There is no mass or paracolic lymphadenopathy noted. No obstruction, free intraperitoneal air or discrete abscess is seen. The vermiform appendix is normal. ABDOMINAL WALL: There is a small fat-containing umbilical hernia. There is a very small fat-containing right inguinal hernia.? LYMPH NODES: Adjacent to the gallbladder fossa (3:24), a 1.2 x 0.9 cm lymph node is seen. There are 1.4 x 1.2 cm and 6 mm perigastric lymph nodes (3:24 and 26). Superficial to the pancreas (3:21) a 1.6 x 1.3 cm peripherally calcified lymph node versus focus of fat necrosis is noted. VASCULAR: Unremarkable. PELVIC VISCERA: The uterus and adnexa are unremarkable.? OSSEOUS STRUCTURES: There are post-vertebroplasty changes at L1 and L2. There is degenerative disc disease at L4-L5. No acute or aggressive osseous abnormality is seen.? CT/CT abdomen pelvis wo IV con IMPRESSION: ? 1. Findings are consistent with acute diverticulitis of the junction of the descending and proximal sigmoid colon segments. There is a small amount of free fluid layering along the left paracolic gutter. No focal abscess or free intraperitoneal air is seen. Recommend appropriate clinical management and follow-up imaging as clinically indicated. ? 2. There are nonspecific probable lymph nodes situated within the gallbladder fossa, the perigastric region and the peripancreatic region. Some are mildly enlarged. These should be managed on a clinical basis. At a minimum, recommend short-term follow-up CT imaging in 3-6 months to ensure stability/regression. ? 3. There are post-vertebroplasty and degenerative changes of the lumbar spine. No aggressive osseous lesion is seen. ? Fleischner guidelines were followed. <Shena Lynch MD - Last Filed: 02/18/23 22:55> Medications Administered Discontinued Medications Generic Name Dose Route Start Last Admin Trade Name Freq PRN Reason Stop Dose Admin Acetaminophen 975 mg 02/18/23 21:22 02/18/23 22:37 Acetaminophen 325 Mg Tablet PO 02/18/23 21:23 975 mg ONCE ONE Administration <JUDITH Lambert - Last Filed: 02/18/23 19:22> Medications Administered Discontinued Medications Generic Name Dose Route Start Last Admin Trade Name Freq PRN Reason Stop Dose Admin Acetaminophen 975 mg 02/18/23 21:22 02/18/23 22:37 Acetaminophen 325 Mg Tablet PO 02/18/23 21:23 975 mg ONCE ONE Administration <Shena Lynch MD - Last Filed: 02/18/23 22:55> Discharge Plan Discharge Clinical Impression: Diverticulitis <JUDITH Lambert - Last Filed: 02/18/23 19:22> Patient Disposition: Home, Self-Care <UJDITH Lambert - Last Filed: 02/18/23 19:22> Instructions: Diverticulitis (ED), Cystocele (ED), Diverticulitis Diet (ED) <JUDITH Lambert - Last Filed: 02/18/23 19:22> Additional Instructions: Please follow-up with your primary care physician tomorrow. If you have any worsening or new symptoms, please return to the emergency room or call 911 <JUDITH Lambert - Last Filed: 02/18/23 19:22> Prescriptions: New levofloxacin 500 mg tablet 500 mg PO DAILY Qty: 9 0RF metronidazole 500 mg tablet 500 mg PO BID Qty: 19 0RF No Action ondansetron 4 mg tablet,disintegrating 4 mg PO Q8H PRN (Reason: nausea and vomiting) Qty: 10 0RF cholecalciferol (vitamin D3) 10 mcg (400 unit) capsule 10 mcg PO DAILY gabapentin 100 mg capsule 100 mg PO DAILY amitriptyline 10 mg tablet 10 mg PO BEDTIME valacyclovir 1 gram tablet 1,000 mg PO DAILY albuterol sulfate 90 mcg/actuation HFA aerosol inhaler 2 puff inhalation Q6H PRN albuterol sulfate [ProAir HFA] 90 mcg/actuation HFA aerosol inhaler 2 puff inhalation Q6H PRN fluticasone propionate [Flovent HFA] 110 mcg/actuation HFA aerosol inhaler 1 puff inhalation BID naproxen 500 mg tablet 500 mg PO BID sumatriptan succinate [Imitrex] 50 mg tablet 50 mg PO Q2-4H PRN Rx Instructions: do not exceed 4 doses per 24 hrs valacyclovir 500 mg tablet 1,000 mg PO DAILY Shingrix gE Antigen Component 50 mcg suspension for reconstitution IM bisacodyl [Dulcolax (bisacodyl)] 5 mg tablet,delayed release (DR/EC) 10 mg PO ONCE 1 Days Qty: 2 0RF Rx Instructions: take 2 tabs at noon the day before your colonoscopy polyethylene glycol 3350 [Miralax] 17 gram/dose powder 238 g PO ONCE Qty: 238 0RF Rx Instructions: As directed by gastroenterology department at [facility] famotidine [Pepcid] 20 mg tablet 20 mg PO BEDTIME Qty: 30 3RF <JUDITH Lambert - Last Filed: 02/18/23 19:22> Referrals: William Monique MD [Physician] - (Possible cystocele) <JUDITH Lambert - Last Filed: 02/18/23 19:22>
[2023-02-18 19:37] LABS: MANUAL DIFF FLAG NO
[2023-02-18 19:38] LABS: Basophils Percent Auto 0.3 % (0-2); Eosinophils Absolute Auto 0.1 X10*3/uL (0.0-0.4); Eosinophils Percent Auto 1.8 % (0-4); Hematocrit 39.7 % (37.0-47.0); Hemoglobin 13.1 g/dl (12.0-16.0); Imm Gran Abs Auto 0.01 X10*3/uL (0.00-0.03); Imm Gran Pct Auto 0.1 % (0.0-0.4); Lymphocytes Absolute Auto 2.9 X10*3/uL (1.2-4.9); Lymphocytes Percent Auto 37.7 % (20-40); Mean Corpuscular Hemoglobin 30.8 pg (27.0-33.0); Mean Corpuscular Volume 93.4 fL (80.0-98.0); Mean Platelet Volume 9.9 fL (9.4-12.3); Monocytes Absolute Auto 0.6 X10*3/uL (0.1-1.2); Monocytes Percent Auto 7.5 % (2-11); Neutrophils Absolute Auto 4.1 x10*3/uL (2.0-8.3); Neutrophils Percent Auto 52.6 % (45-73); Platelet Count 252 X10*3/uL (160-400); Red Blood Count 4.25 X10*6/uL (4.20-5.50); Red Cell Distribution Width 12.6 % (11.0-16.0); White Blood Count 7.8 X10*3/uL (4.8-10.8)
[2023-02-18 19:53] LABS: Alanine Aminotransferase 19 U/L (0-31); Albumin Level 4.2 g/dL (3.5-5.0); Alkaline Phosphatase 94 U/L (39-117); Anion Gap 11 (12-20); Aspartate Amino Transferase 15 U/L (5-31); Bilirubin Direct 0.1 mg/dL (0.0-0.5); Bilirubin Total 0.5 mg/dL (0.0-1.0); Blood Urea Nitrogen 13 mg/dL (9-16); Calcium 9.9 mg/dL (8.4-10.2); Carbon Dioxide 31 mmol/L (22-29); Chloride 102 mmol/L (96-108); Estimated Glomerular Filt Rate > 60; Glucose Random 122 mg/dL (60-115); Lipase 23 U/L (8-78); Potassium 3.4 mmol/L (3.3-5.1); Sodium 141 mmol/L (135-145); Total Protein 7.6 g/dL (6.5-8.0)
[2023-02-18 21:06] LABS: Appearance Urine Clear; Color Urine Yellow; Glucose Urine UA Negative (Negative); Leukocyte Esterase Urine Negative (Negative); Nitrite Urine Negative (Negative); Urine Blood Negative (Negative); Urine Ketones Negative (Negative); Urine Protein Negative (Neg-Trace)
[2023-02-18 22:01] VITALS: BP 137/67; PULSE 51; RESP 18; TEMP 36.6; O2SAT 100
[2023-02-18] MEDS: Acetaminophen 325 MG TABLET 975 MG PO (22:37)
[2023-02-18] MEDS: levoFLOXacin 500 MG TABLET PO (23:14)
[2023-02-18] MEDS: metroNIDAZOLE 500 MG TABLET PO (23:14)
--- NOTE | 2023-02-18 23:19 | PC.NURSE ---
pt a&o, no sob or chest pain, pt still feel a little nauseous at discharge, pt medicated per Mar, Reviewed discharge instructions, pt verbalized understanding.
== END 2023-02-18 23:22 | disposition home or self-care (01) ==
PROVIDERS: Physician Assistant; Emergency Provider Emergency Medicine; PCP Nurse Practitioner Primary Care
DX: K57.32 Diverticulitis of large intestine without perforation or abscess without bleeding (principal); Z79.899 Other long term (current) drug therapy
CPT/HCPCS: 36415; 74176; 80048; 80076; 81003; 83690; 83735; 85025; 99284

== ENCOUNTER → 2023-03-31 08:44 | Outpatient (BNVA) | payer MEDICAID, SELFPAY | PROVIDERS: PCP Nurse Practitioner Primary Care; Visit Provider Obstetrics & Gynecology | DX: N81.4 Uterovaginal prolapse, unspecified (principal) | CPT/HCPCS: 99202 ==

== ENCOUNTER → 2023-04-01 08:35 | Outpatient (BNVA) | payer MEDICAID, SELFPAY | PROVIDERS: PCP Nurse Practitioner Primary Care; Visit Provider Anesthesiology | DX: M96.1 Postlaminectomy syndrome, not elsewhere classified (principal) | CPT/HCPCS: 99212 ==

== ENCOUNTER 2023-04-02 08:02 | Outpatient (REF) | payer MEDICAID, SELFPAY ==
--- NOTE | ~2023-04-02 | CT_ITS ---
EXAMINATION: CT ABDOMEN AND PELVIS WITH CONTRAST CLINICAL INFORMATION: Lower abdominal pain COMPARISON: CT abdomen pelvis 02/18/2023 TECHNIQUE: Multidetector volumetric images were obtained from the superior aspect of the liver through the pubic symphysis following administration 85 mL of Omnipaque 350 intravenous contrast. Sagittal and coronal reformatted images were obtained on the technologist's workstation. This CT examination was performed using dose optimization techniques as appropriate, variously including the following: *Automated exposure control *Adjustment of mA and/or kV according to patient size (this includes techniques or standardized protocols for targeted exams where dose is matched to indication/reason for exam; i.e. extremities or head) *Use of iterative reconstruction technique DLP: 710 mGy-cm FINDINGS: Visualized lung bases are well aerated. The liver is normal in size and demonstrates diffusely decreased attenuation. Stable approximately 1 cm left hepatic cyst. The gallbladder surgically absent. The pancreas, spleen and adrenal glands are unremarkable. Symmetrically enhancing kidneys. There is no hydronephrosis of either kidney. Normal caliber loops of small and large bowel. Mild colonic diverticulosis without CT evidence to suggest active diverticulitis. Normal caliber abdominal aorta. No retroperitoneal lymphadenopathy. A few previously visualized prominent lymph nodes in the perigastric and periportal region appear similar. The bladder is normal in appearance. Unremarkable CT appearance of the uterus. No gross free pelvic fluid. Small fat-containing right inguinal hernia. No inguinal lymphadenopathy. Degenerative changes of the spine. Patient is status post cement augmentation of the L1 and L2 vertebral bodies. CT/CT abdomen pelvis w IV con IMPRESSION: 1. No CT evidence for acute abnormality within the abdomen or pelvis. 2. Diffusely decreased liver attenuation suggesting hepatic steatosis. Correlation with liver enzymes recommended. 3. Mild colonic diverticulosis without CT evidence to suggest active diverticulitis. Fleischner guidelines were followed.
[2023-04-02] MEDS: iohexoL 350 MG/ML 100 ML INFUS..BTL IV (11:03)
[2023-04-02] MEDS: Barium Sulfate Oral (Mocha) 450 ML ORAL.SUSP 900 ML PO (11:09)
[2023-04-02 14:25] LABS: Creatinine POC 0.4 mg/dL (0.5-1.4); GFR POC > 60
== END 2023-04-02 08:03 | disposition home or self-care (01) ==
LOC: HO.CT 08:02
PROVIDERS: PCP Nurse Practitioner Primary Care; Visit Provider Registered Nurse
DX: R10.30 Lower abdominal pain, unspecified (principal)
CPT/HCPCS: 74177; 82565; Q9967

== ENCOUNTER 2023-04-14 13:56 | Day surgery (SDC) | payer MEDICAID, SELFPAY ==
[2023-04-10 13:58] VITALS: BMI 31.8
[2023-04-14] VITALS (7 sets, daily range): BP systolic 128–168; BP diastolic 67–87; PULSE 56–84; RESP 18; TEMP 36.1–36.3; O2SAT 95–100; BMI 34.5; BMI 35.2
--- NOTE | 2023-04-14 14:04 | MHC.SHP ---
Pre-Procedural Eval Section A Date of Service: 04/14/23 Section B Chief Complaint: GERD, screening Relevant Family History (Specify if Yes): No Relevant Social History: None Present Medications: see Short Stay Collaborative assessment Medical History: Significant History (gerd) History of Previous Operations: Relevant previous surgery/procedure and date(s) (History of spinal surgery Hx of cervical spine surgery Hx of tubal ligation) Allergies: Allergies Allergy/AdvReac Type Severity Reaction Status Date / Time Penicillins [PENICILLINS] Allergy Unknown UNKNOWN Verified 04/01/23 08:42 latex Allergy Mild Rash Uncoded 03/31/23 09:00 Review of Systems Sugical H&P ROS: Negative: Constitution, Cardiovascular, Respiratory, Neurological, Psychiatric, Hem-Onc, Allergic/Immunologic, Gastrointestinal, Genitourinary, Musculoskeletal, Integumentary, Endocrine and Eyes/Ears/Nose/Throat Exam Surgical H&P Exam: Normal: HEENT, Normal: Heart, Normal: Lungs, Normal: Extremities, Normal: Abdomen, Normal: Skin and Normal: Neurological Plan Diagnosis/Plan: Unchanged I have reviewed the history and physical and performed a pertinent physical examination on my patient. No changes have occurred unless specified. Time Spent With Patient Time: Total time managing care of this patient today ____ minutes.
[2023-04-14] MEDS: Lactated Ringers 1,000 ML 100 ML IVCONT (14:32)
--- NOTE | 2023-04-14 14:33 | P.CONAN_ITS ---
HPI - Anesthesia Eval Consult details Narrative: 52-year-old female presenting for routine colonoscopy in endoscopy. Reports history of easily exacerbated asthma. Has not taken her inhalers since yesterday. Usually takes fluticasone regularly and albuterol for rescue. PMFSH Active Problems Active Problems: All Active Problems (Updated 04/14/23 @ 14:13 by Rajani Cesar RN) Lumbar radiculopathy (Acute) Postlaminectomy syndrome, cervical (Acute) COVID-19 (Acute) Cystocele with uterine prolapse (Acute) Past Medical History Medical History Asthma Elevated cholesterol Hx of gastroesophageal reflux (GERD) Hx of herpes genitalis Family History Family History Mother HTN (hypertension) Diabetes Father No problems noted. 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 Allergies Allergy/AdvReac Type Severity Reaction Status Date / Time ondansetron [From Zofran] Allergy Intermediate Hives Verified 04/14/23 16:31 Penicillins [PENICILLINS] Allergy Unknown UNKNOWN Verified 04/14/23 14:18 latex Allergy Mild Rash Uncoded 03/31/23 09:00 Active Medications: Current Medications Lactated Ringer's (Lr) 1,000 mls @ 100 mls/hr IVCONT .Q10H EDMUND Last Admin: 04/14/23 14:32 Dose: 100 mls/hr Home Medications Medication Instructions Recorded Confirmed Last Taken Type cholecalciferol (vitamin D3) 10 10 mcg PO DAILY 07/16/21 03/05/22 Unknown History mcg (400 unit) capsule (Vitamin D3) gabapentin 100 mg capsule 100 mg PO DAILY PRN Pain 07/16/21 03/05/22 Unknown History (Neurontin) amitriptyline 10 mg tablet 10 mg PO BEDTIME 03/04/22 03/05/22 Unknown History valacyclovir 1 gram tablet 1,000 mg PO DAILY 03/04/22 03/05/22 Unknown History albuterol sulfate 90 mcg/actuation 2 puff inhalation Q6H PRN 03/05/22 03/05/22 Unknown History aerosol inhaler (ProAir HFA) Shortness Of Breath Or Wheezing fluticasone propionate 110 1 puff inhalation BID 09/01/22 Unknown History mcg/actuation HFA aerosol inhaler (Flovent HFA) naproxen 500 mg tablet (Naprosyn) 500 mg PO BID PRN Pain 09/01/22 Unknown History sumatriptan succinate 50 mg tablet 50 mg PO Q2-4H PRN Migraine 09/01/22 Unknown History (Imitrex) Headache varicella-zoster gE vac,2 of 2 50 IM 09/01/22 Unknown History mcg IM suspension (Shingrix gE Antigen Component) famotidine 20 mg tablet (Pepcid) 20 mg PO BEDTIME PRN Gastric Reflux 04/14/23 Unknown History Exam Exam Date and Time: April 14, 2023 1433 Height,Weight and Vital Signs: Height 5 ft 7 in Weight 225 lb Last Vital Signs Temp 97.0 F 04/14/23 14:05 Pulse 84 04/14/23 14:05 Resp 18 04/14/23 14:05 BP 128/74 04/14/23 14:05 Pulse Ox 95 04/14/23 14:05 O2 Del Method Room Air 04/14/23 14:05 Airway Mallampati Class: I TM Dist: >3cm Neck ROM: Full Loose/Missing/Broken Teeth: No Assessment and Plan Assessment Anesthesia Assessment: Anesthesia Plan Discussed and Chart Reviewed Final Anesthetic Review Family History of Problems with Anesthesia: No History of Problems with Anesthesia: No NPO: Yes ASA Class: III Final Preanesthetic Review: No Changes in Pt Med Stat, Meds/Allgs Chart Reviewed, Consent Obtained/Reviewed and Anes Risks/Benef Reviewed Patient Risk: Intermediate Procedure Risk: Low Anesthetic Plan Anesthetic Plan: MAC: Disposition: Standard PACU
[2023-04-14] MEDS: Albuterol Sulfate 2.5 MG, Albuterol/Iprat 2.5/0.5MG 3 ML 3 ML INHALE (14:47)
--- NOTE | 2023-04-14 14:56 | P.OP_ITS ---
Operative Note Operative Note Date of Service: 04/14/23 Narrative: Operative Information Procedure Description: EGD, Colonoscopy Indication: GERD, epigastric pain Anesthesia: MAC FLEXIBLE TRANSORAL UPPER GASTROINTESTINAL ENDOSCOPY AND COLONOSCOPY PROCEDURE NOTE UPPER ENDOSCOPY Consent: Indications for the procedure and potential complications of bleeding, perforation, reaction to medications and missed diagnosis were discussed with the patient and informed consent was obtained. Instrument: Olympus GIF H 190 J mid size upper endoscope Monitoring: Vital signs and clinical assessment, continuous EKG monitoring, Pulse oximetry, Carbon Dioxide monitoring and blood pressure monitoring were done throughout the procedure. Procedure: The patient was placed in the left lateral decubitis position and pre-procedure medications were administered and a bite block was placed. The endoscope was inserted into the mouth and advanced under direct vision to the third part of duodenum. A careful inspection was made as the upper endoscope was withdrawn including a retroflexed examination of the proximal stomach; Findings and interventions are described below. Findings: Larynx:normal Esophagus: GE junction at 40 cm, diaphragm hiatus at 40 cm, normal mucosa, bx taken from distal esophagus and GEJ Stomach: Patchy erythema and scarring with bile acid reflux noted. Biopsies were obtained. Grade 2 flap valve on retroflexed examination of the cardia. Duodenum: Normal bulb and descending duodenum, bx taken Intervention: Biopsies as noted above COLONOSCOPY Instrument: Olympus variable stiffness pediatric scope 190L Colonoscopy Monitoring: Vital signs and clinical assessment, continuous EKG monitoring, Pulse oximetry, Carbon Dioxide monitoring and blood pressure monitoring were done throughout the procedure. Colon withdrawal time was 9 minutes. Procedure: The patient was placed in the left lateral decubitis position and pre-procedure medications were administered. After a digital rectal examination of the ano-rectum, the video colonoscope was inserted into the rectum and advanced through the colon to the cecum/TI. The colonoscope was slowly withdrawn in a retrograde panoramic fashion and the colon mucosa was carefully examined including a retroflexed view of the rectum. Findings and interventions are described below. Procedure Difficulty:moderate, pressure applied--redundant colon Findings: Terminal Ileum-normal Cecum:normal Ascending Colon: diverticula noted Transverse Colon -normal Descending Colon:normal Sigmoid Colon:moderate diverticulosis noted Rectum: Retroflexion with small internal hemorrhoids, grade I Anorectum - normal Colon preparation: [place] Bowel Preparation Scale Right colon; 2 Transverse colon: 3 Left colon; 3 (0 = Unprepared colon segment with mucosa not seen due to solid stool that cannot be cleared. 1 = Portion of mucosa of the colon segment seen, but other areas of the colon segment not well seen due to staining, residual stool and/or opaque liquid. 2 = Minor amount of residual staining, small fragments of stool and/or opaque liquid, but mucosa of colon segment seen well. 3 = Entire mucosa of colon segment seen well with no residual staining, small fragments of stool or opaque liquid) Impression and Post Procedure Diagnosis: Endoscopy Findings: gastritis Colonoscopy Findings: redundant colon diverticulosis internal hemorrhoids Plan: Await Pathology results Repeat Colonoscopy in 10 years or earlier if clinically indicated High fiber diet leaflet avoid straining at stool, epsom salts and sitz bath, anusol supps or cream if h pylori pos then treat, can consider trial of ursodiol for the bile acid reflux and see if helps if ongoing sx then GES to r/o gastroparesis Above findings were reviewed with the patient and relevant handouts were provided if indicated.
[2023-04-14] MEDS: ondansetron HCL 4 MG/2 ML VIAL IVPUSH (15:58)
[2023-04-14] MEDS: diphenhydrAMINE HCL 50 MG/ML VIAL 12.5 MG IVPUSH (16:05)
== END 2023-04-14 17:20 | disposition home or self-care (01) ==
PROVIDERS: PCP Nurse Practitioner Primary Care; Visit Provider Internal Medicine Gastroenterology
PROC: (CPT 45378; principal; 2023-04-14 15:20)
DX: Z12.11 Encounter for screening for malignant neoplasm of colon (principal); K57.30 Diverticulosis of large intestine without perforation or abscess without bleeding; K64.0 First degree hemorrhoids; Q43.8 Other specified congenital malformations of intestine; K21.9 Gastro-esophageal reflux disease without esophagitis; K29.70 Gastritis, unspecified, without bleeding; Z88.0 Allergy status to penicillin; Z91.040 Latex allergy status
CPT/HCPCS: 45378; 43239; 88305; 88342; J1200; J2250; J2405

== ENCOUNTER → 2023-04-14 13:56 | Outpatient (BNV) | payer MEDICAID, SELFPAY | PROVIDERS: PCP Nurse Practitioner Primary Care; Visit Provider Internal Medicine Gastroenterology | DX: K21.9 Gastro-esophageal reflux disease without esophagitis (principal); Z12.11 Encounter for screening for malignant neoplasm of colon; K57.31 Diverticulosis of large intestine without perforation or abscess with bleeding | CPT/HCPCS: 43239; 45378 ==

== ENCOUNTER 2023-04-27 13:27 | Outpatient (AMB) | payer MEDICAID, SELFPAY ==
--- NOTE | 2023-04-27 13:32 | MHC.OFFVIS ---
Intake Vital Signs 04/27/23 13:33 Height 5 ft 7 in Weight 199 lb 11.821 oz BMI 31.3 BP 183/98 H Blood Pressure Location Lt brachial Position Sitting Pulse 56 Intake Visit Reasons: S/p egd/colon- [facility] Intake Note: Ayla presents in office as a est.patient for a post-op for egd/colo PT CC: pt reports having abdominal pain , bloating , constipation , GERD ,obstipation pt denies any other GI Issues Process Improvement Specialist Required: No Accompanied by: Self / Same As Patient Allergies ondansetron [From Zofran] Allergy (Intermediate, Verified 04/27/23 13:40) Hives Penicillins [PENICILLINS] Allergy (Unknown, Verified 04/27/23 13:40) UNKNOWN latex Allergy (Mild, Uncoded 04/27/23 13:40) Rash HPI S/p egd/colon- [facility] HPI Details LAST VISIT (1) Screen for colon cancer: ?Code(s): Z12.11 - Encounter for screening for malignant neoplasm of colon ?Plan: Patient denies any cardiac or respiratory symptoms.? Denies any issues with anesthesia in the past.? Denies any history of sleep apnea.? No history infectious diseases in the past or present.? Not on any anticoagulation therapy.? No family or personal history of colon cancer or polyps, however as mentioned above patient not unsure if her uncles had prostate or colorectal cancer.? Patient denies melena, hematochezia, unintentional weight loss or ribbon like stools.? Discussed at length the pre-procedure,? prep, diet & medications as well as what to expect prior, during and after the procedure.?? Stressed the importance of good bowel prep. ?Recommended the use of Vaseline or Calmoseptine OTC & baby wipes with bowel movements to promote comfort.? ? (2) GERD (gastroesophageal reflux disease): ?Code(s): K21.9 - Gastro-esophageal reflux disease without esophagitis ?Qualifiers: ?Esophagitis presence:?esophagitis presence not specified? Qualified Code(s):?K21.9 - Gastro-esophageal reflux disease without esophagitis ?Plan: Discussed with patient avoiding dietary triggers a late night snacking.? Staying upright for minimal 3 hours after meals discussed with patient.? Will start her on famotidine.? Patient will call us if this not going to be effective.? We will send her for upper endoscopy to further evaluate for gastritis, esophagitis, Dewitt's, gastric or peptic ulcer, H pylori.? I will see patient after the procedure, sooner on as needed basis.? Patient is agreeable to this plan and verbalizes understanding of instructions.? She was given the opportunity to ask questions and all questions answered.? UPPER ENDOSCOPY AND COLONOSCOPY Findings: Larynx:normal Esophagus: GE junction at 40? cm, diaphragm hiatus at 40 cm, normal mucosa, bx taken from distal esophagus and GEJ Stomach: Patchy erythema and scarring with bile acid reflux noted. Biopsies were obtained. Grade 2 flap valve on retroflexed examination of the cardia. Duodenum: Normal bulb and descending duodenum, bx taken Intervention: Biopsies as noted above Findings: Terminal Ileum-normal Cecum:normal Ascending Colon: diverticula noted Transverse Colon -normal Descending Colon:normal Sigmoid Colon:moderate diverticulosis noted Rectum: Retroflexion with small internal hemorrhoids, grade I Anorectum - normal Colon preparation: [place] Bowel Preparation Scale Right colon; 2 Transverse colon: 3 Left colon; 3 (0 = Unprepared colon segment with mucosa not seen due to solid stool that cannot be cleared. 1 = Portion of mucosa of the colon segment seen, but other areas of the colon segment not well seen due to staining, residual stool and/or opaque liquid. 2 = Minor amount of residual staining, small fragments of stool and/or opaque liquid, but mucosa of colon segment seen well. 3 = Entire mucosa of colon segment seen well with no residual staining, small fragments of stool or opaque liquid) Impression and Post Procedure Diagnosis: Endoscopy Findings: gastritis Colonoscopy Findings: redundant colon diverticulosis internal hemorrhoids Plan: Await Pathology results Repeat Colonoscopy in 10 years or earlier if clinically indicated High fiber diet leaflet avoid straining at stool, epsom salts and sitz bath, anusol supps or cream if h pylori pos then treat, can consider trial of ursodiol for the bile acid reflux and see if helps if ongoing sx then GES to r/o gastroparesis PATHOLOGY RESULTS Diagnosis A.? Duodenum, biopsy:? Duodenal mucosa within normal limits; preserved villous architecture and no increased intraepithelial lymphocytes seen. B.? Stomach, biopsy:? Gastric antral and body mucosa with mild chronic inactive gastritis; negative for Helicobacter pylori, intestinal metaplasia and dysplasia. C.? Gastroesophageal junction, biopsy:? Gastric cardia-type mucosa with mild chronic inflammation; no squamous mucosa seen; negative for intestinal metaplasia and dysplasia.? D.? Esophagus, distal, biopsy:? Squamous mucosa within normal limits; negative for inflammation (including eosinophils), fungal organisms, intestinal metaplasia and dysplasia. TODAY'S VISIT: Patient is here today for follow-up and to discuss upper endoscopy and colonoscopy results. Patient denies any ill effects from the prep, anesthesia or procedure itself. Patient states that she has been constipated in unable to move her bowels. Patient states that she is also unable to pass gas. Had to use suppository in order for her to have a small bowel movement. Patient denies melena, hematochezia, unintentional weight loss or ribbon like stools. Upper endoscopy and colonoscopy results discussed with patient. Patient denies dyspepsia, dysphagia or odynophagia. Reports postprandial abdominal bloating. Denies epigastric discomfort or pain. [facility] Medical History (Updated 04/27/23 @ 16:31 by Lissette Joshi, [facility]) Asthma Diverticulitis Elevated cholesterol Hx of gastroesophageal reflux (GERD) Hx of herpes genitalis Migraine Surgical History History of spinal surgery Hx of cervical spine surgery Hx of colonoscopy Hx of esophagogastroduodenoscopy Hx of partial thyroidectomy Hx of tubal ligation Family History Mother HTN (hypertension) Diabetes Father No problems noted. 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 Reproductive History Menstrual Age of Menarche: 10 Review of Systems Const Denies weight gain and Denies weight loss ENT Reports no additional complaints, Denies dysphagia and Denies odynophagia Card Reports no additional complaints Resp Reports no additional complaints GI Reports abdominal pain (occasional), Denies belching, Denies melena, Reports bloating, Reports constipation, Denies dysphagia, Denies excessive flatus, Denies dyspepsia, Reports heartburn, Denies diarrhea, Denies loose stools, Denies nausea, Denies odynophagia and Denies vomiting Musc Reports no additional complaints Neuro Reports no additional complaints Psych Reports no additional complaints Endo Reports no additional complaints Physical Exam Vital Signs: Last Vital Signs Pulse 56 04/27/23 13:33 BP 183/98 H 04/27/23 13:33 BMI result Body Mass Index 31.3 Const General: healthy appearing, no acute distress and well developed Nutritional Appearance: obese Orientation/consciousness: patient oriented x3 HEENT Head: Yes normal to inspection, Yes normocephalic and Yes atraumatic Face and sinus: Yes normal facial exam Mouth: Normal oral and palatal mucosa present Throat: Yes posterior oropharynx normal, Yes tonsils normal and Yes uvula midline Eyes General: appearance normal, both eyes and all related structures Neck Neck: Yes normal visual inspection, Yes full ROM and Yes trachea midline Thyroid: Thyroid normal Resp Effort & Inspection: normal respiratory effort, able to speak in complete sentences, no tracheal deviation and symmetric chest movement Auscultation: clear to auscultation bilaterally Cardio Rate: regular rate Heart sounds: S1 normal heart sound present and S2 normal heart sound present GI Inspection: Yes normal to inspection, No distended and Yes obesity Palpation (GI): Soft to palpation, not firm, nontender and No hepatosplenomegaly present Auscultation: normal bowel sounds General: Yes no CVA tenderness Back/Spine/Pelvis Back: no CVA tenderness Skin General skin exam: elasticity normal, turgor normal and dry skin Neuro General: patient oriented x3 Psych Appearance: grossly normal Mental Status: mental status grossly normal Speech and movement: Normal speech and movement present Affect: normal affect Assessment & Plan Assessment & Plan (1) GERD (gastroesophageal reflux disease): Code(s): K21.9 - Gastro-esophageal reflux disease without esophagitis Qualifiers: Esophagitis presence: without esophagitis Qualified Code(s): K21.9 - Gastro-esophageal reflux disease without esophagitis Plan: Patient reports that she is taking famotidine on as needed basis. Patient denies any epigastric discomfort or pain. Small amount of bile seen in the stomach on upper endoscopy. Patient denies any epigastric pain or discomfort. She is not moving her bowels well, will send her script for Linzess so she can move her bowels better. Patient denies any dyspepsia, dysphagia or odynophagia. (2) Postprandial abdominal bloating: Code(s): R14.0 - Abdominal distension (gaseous) Plan: Patient reports postprandial abdominal bloating. No FODMAP diet discussed with patient. List of food recommended as well as list of food to avoid given to patient (3) Chronic idiopathic constipation: Code(s): K59.04 - Chronic idiopathic constipation Plan: Patient reports to be constipated, reports abdominal bloating if no bowel movement for couple days. Start Linzess 145 mcg daily. I will see patient in 3 months, sooner on as needed basis. Patient is agreeable to this plan and verbalizes understanding of instructions. She was given the opportunity to ask questions and all questions answered. Thank you for allowing me to participate in her care Medications: New linaclotide (Linzess) 145 mcg PO DAILY 30 caps 2RF Discontinued famotidine 20 mg PO BEDTIME 30 tabs 3RF K21.9 - Gastro-esophageal reflux disease without esophagitis Coding Level of Care Code Est Pt Level 4 (16599) Diagnoses GERD (gastroesophageal reflux disease) K21.9 Esophagitis presence: without esophagitis Postprandial abdominal bloating R14.0 Chronic idiopathic constipation K59.04 Time Spent (min) 35 Comment 25 minutes spent with patient and additional 10 minutes spent reviewing her records
[2023-04-27 13:33] VITALS: BP 183/98; PULSE 56; BMI 31.3
== END 2023-04-27 14:40 | disposition home or self-care (01) ==
LOC: HO.HGI 13:27
PROVIDERS: PCP Nurse Practitioner Primary Care; Visit Provider Nurse Practitioner Family
DX: K21.9 Gastro-esophageal reflux disease without esophagitis (principal); R14.0 Abdominal distension (gaseous); K59.04 Chronic idiopathic constipation
CPT/HCPCS: 99214

== ENCOUNTER → 2023-04-27 13:27 | Outpatient (BNVA) | payer MEDICAID, SELFPAY | PROVIDERS: PCP Nurse Practitioner Primary Care; Visit Provider Nurse Practitioner Family | DX: K59.04 Chronic idiopathic constipation (principal); K21.9 Gastro-esophageal reflux disease without esophagitis; R14.0 Abdominal distension (gaseous) | CPT/HCPCS: 99214 ==

== ENCOUNTER → 2023-06-05 10:01 | Day surgery (SDC) | payer MEDICAID, SELFPAY ==
[2023-06-03 08:47] VITALS: BMI 31.6
[2023-06-05 10:14] VITALS: BP 150/77; PULSE 52; RESP 20; TEMP 36.6; O2SAT 98
--- NOTE | 2023-06-05 11:52 | PC.NURSE ---
pt left didnot want to wait for procedure or to talk to dr esteban. 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 gave patient number to pain office to reschedule. attempted to comvince patient to stay she sts she thought only 1 hour procedure and cant wait
== END ==
PROVIDERS: PCP Nurse Practitioner Primary Care; Visit Provider Anesthesiology
DX: M96.1 Postlaminectomy syndrome, not elsewhere classified (principal); Z53.29 Procedure and treatment not carried out because of patient's decision for other reasons

== ENCOUNTER 2023-06-11 10:02 | Outpatient (AMB) | payer MEDICAID, SELFPAY ==
--- NOTE | 2023-06-11 10:14 | MHC.OFFVIS ---
Intake Vital Signs 06/11/23 10:15 Height 5 ft 7 in Weight 210 lb BMI 32.9 BP 136/85 Blood Pressure Location Lt brachial Position Sitting Pulse 58 Pulse Source Pulse Oximeter Pulse Oximetry (%) 97 Oxygen Delivery Method Room Air Intake Visit Reasons: Discussion about SCS Trial & other options Intake Note: Pain today 04/13. Globe Changer Required: No Accompanied by: Self / Same As Patient Allergies ondansetron [From Zofran] Allergy (Intermediate, Verified 06/11/23 10:15) Hives Penicillins [PENICILLINS] Allergy (Unknown, Verified 06/11/23 10:15) UNKNOWN latex Allergy (Mild, Uncoded 04/27/23 13:40) Rash HPI HPI Comments History of Present Illness Details Patient is a pleasant 53 years old female presents today for follow up to review SCS trial and other treatments options for her chronic low back and neck pain. Patient was scheduled to undergo lumbar SCS trial with Dr. Stinson on 06/05/23 but canceled procedure on the day of SCS trial due to post-operative activity restrictions which would conflict with her current family and work obligations. 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 Patient reports she was not communicated about restrictions well prior to procedure and therefore was not been able to make any arrangements this her family or work. Today, we went into a greater discussion about SCS trial and implant and activity restrictions while caring for the device and precautions for incision and dressing post-operatively. Patient was also encouraged to reach out to [employer] local representatives for SCS if needed to enhance her understanding of neuromodulation for a longer term pain management. Patient also reports today of worsening of her back symptoms with radiation to her left lower extremity and tenderness in the projection of sacroiliac joint injection. She reports increased back pain with bending forward or lifting her children or patients, pain with walking or standing. Pain negatively affects her daily general activities, functioning, sleep, mood, social interactions and quality of life. Reports numbness with tingling in LLE posteriorly with intermittent weakness that frequently disturbances her gait, balance to the point that she has to use walker. She ambulates with antalgic slow gait today with forward flexed position. Reports over the counter measures and daily physical activities have not been beneficial for her pain relief. We will proceed with lumbar spine MRI for further evaluation. Patient is aware that her Behavioral evaluation is valid for one year from the time of assessment was done. Denies any fever, abdominal or groin pain, bladder or bowel incontinence or saddle anesthesia. PRIOR Dr. Stinson 04/01/23: Ayla returns to to my office again to discuss possibility of treating her lower back pain and cervical pain related to postlaminectomy syndrome of cervical spine with [employer] spinal cord stimulator. She is a subject of psychological treatment and [facility] and the might give her psychological evaluation. After that will be able to go for trial. The trial 1st will be cervical and then lumbar. Implantation could be done cervical 1st and after that lumbar. Alternatively if her psychological evaluation will not be able to be performed by [facility], [facility] psychological evaluation needs to be performed. When psychological evaluation will be ready 1 where the other we will schedule her for cervical trial with [employer]. d PRIOR: Ayla is very pleasant 49 years old female who is in my office complaining on cervicalgia pain in neck as well as low back pain in the projection of the sacral bone. This pain radiates into bilateral lower extremities with numbness. She reports that she can sleep normally, she cannot do activities of daily living she can take care of herself but she cannot function normally she is currently unemployed she is looking for employment however due to COVID-19 infection she has problems with childcare the patient is self mobile but needs walker. She reports that cold application weather changes in movements aggravate her pain and the he had called in do not change her pain. She reports some vague recollection of some surgery in the neck however she points out on the scar which is located across her sternum. She also reports a surgery in her lower back but the scars are resembling more likely a kyphoplasty there. In any way the kyphoplasty which was done probably is at L2 area and not related to her pain which is across the sacral bone. She reports that she received multiple treatments in the [place] and she reports multiple studies in [place] she reports some injections in [address] [place] [id number] unfortunately those studies and injection nature is a are not available for me. ? Her past medical history significant for hypothyroidism headaches and dizziness. Her past surgical history is significant for presume mobile thyroidectomy presume mobile anterior fusion ACDF cholecystectomy and bilateral tubal ligation and presume oval kyphoplasty at [facility] in 2018. ? She reports that she is not smoking cigarettes, she is not drinking alcohol she is legally obtaining and smoking Marline her on a to alleviate her pain. This patient is unfortunately the very poor historian. She is interested in spinal cord stimulation to alleviate her pains. She has [employer] brochure with her today on the visit. She was explained that we need to obtain the thorough information about her she will sign the requests about the information release to [facility], [facility] and treating the [facility] to obtain images this patient and what procedures were done so far for her [facility] Medical History Urinary incontinence HLD (hyperlipidemia) Pre-diabetes Depression Migraine Asthma Hx of gastroesophageal reflux (GERD) Hx of herpes genitalis Elevated cholesterol Diverticulitis Surgical History Hx of cholecystectomy History of subtotal thyroidectomy History of kyphoplasty Hx of fusion of cervical spine Hx of colonoscopy Hx of esophagogastroduodenoscopy Hx of partial thyroidectomy Hx of tubal ligation Family History Mother HTN (hypertension) Diabetes Father No problems noted. 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 Alert and oriented. Mood and affect appropriate. Follows and participates in conversation appropriately. Respiratory effort is unlabored. No cough. Able to transition from sit to stand unassisted. Back/Spine/Pelvis Other: Patient ambulates with slow, antalgic gait with mild limping in forward flexed position. Can flex forward to 50-60 degrees and extend to 5-10 degrees before experiencing lumbar pain, worse pain with bending. Demonstrates 5/5 right and 4/5 left strength of quadriceps bilaterally as well as 5/5 right and 4/5 left flexion/dorsiflexion of bilateral feet against resistance. 2+ pedal pulses bilaterally. Seated straight leg rise with dorsiflexion positive on the left. +1 patellar and diminished achilles reflexes bilaterally, worse on the left. Facet loading test positive bilaterally. Wiliam sign, Demarcus?s, Pelvic compression and Stinchfield tests are positive bilaterally, left>right. No groin pain with I/E hip rotations. Valsalva maneuver negative. Cervical Spine: cervical ROM normal, cervical muscular tenderness, pain with cervical ROM, Cervical spine scars present and No Cervical spine tenderness Thoracic/Lumbar Spine: thoracic and lumbar spine normal to inspection, Thoracic/lumbar spine scar(s), Lasegue's sign positive on the left and localized, pain with thoraco-lumbar ROM, paraspinal muscle tenderness, thoraco-lumbar ROM limited, No thoracic spinal tenderness and lumbar spinal tenderness at L4 and at L5 Sacroiliac joints: bilaterally tender to palpation Results Reviewed Results Reviewed: No imaging is available for review today. Assessment & Plan Assessment & Plan (1) Postlaminectomy syndrome, cervical: Code(s): M96.1 - Postlaminectomy syndrome, not elsewhere classified (2) Lumbar radiculopathy: Code(s): M54.16 - Radiculopathy, lumbar region (3) Chronic pain syndrome: Code(s): G89.4 - Chronic pain syndrome (4) Lumbar spondylosis: Code(s): M47.816 - Spondylosis without myelopathy or radiculopathy, lumbar region Plan 1. The trialed and failed therapy has been reviewed with the patient at greater length today, including post-operative precautions and activity restictions. The risks, consequences, alternatives, and benefits of various treatment options were discussed with the patient in great detail, including conservative management, injections and procedures. Patient is not sure if SCS trial can be implemented in her current lifestyle, given her family and work obligations. 2. For her left sided radiculopathy and no most recent or prior spine imaging available today, we will proceed with lumbar spine MRI?to assess for neural integrity and compression. Patient will return to the clinic to discuss results of the MRI findings when it is done and consider interventional therapy as indicated. Patient is aware to call if pain worsens or if she develops any red flag symptoms to seek emergency care. Patient denies any cauda equina syndrome symptoms at this time.? All questions and concerns have been answered today to patient's satisfaction. Follow-up for MRI results and sooner as needed. Orders: Orders MR lumbar spine wo/w con Today M54.16 - Radiculopathy, lumbar region, M96.1 - Postlaminectomy syndrome, not elsewhere classified Coding Level of Care Code Est Pt Level 4 (48531) Diagnoses Postlaminectomy syndrome, cervical M96.1 Lumbar radiculopathy M54.16 Chronic pain syndrome G89.4 Lumbar spondylosis M47.816
[2023-06-11 10:15] VITALS: BP 136/85; PULSE 58; O2SAT 97; BMI 32.9
== END 2023-06-11 10:46 | disposition home or self-care (01) ==
PROVIDERS: PCP Nurse Practitioner Primary Care; Visit Provider Nurse Practitioner Family
DX: M96.1 Postlaminectomy syndrome, not elsewhere classified (principal); M54.16 Radiculopathy, lumbar region; G89.4 Chronic pain syndrome; M47.816 Spondylosis without myelopathy or radiculopathy, lumbar region
CPT/HCPCS: 99214

== ENCOUNTER → 2023-06-11 10:02 | Outpatient (BNVA) | payer MEDICAID, SELFPAY | PROVIDERS: PCP Nurse Practitioner Primary Care; Visit Provider Nurse Practitioner Family | DX: M96.1 Postlaminectomy syndrome, not elsewhere classified (principal); M54.16 Radiculopathy, lumbar region; M47.816 Spondylosis without myelopathy or radiculopathy, lumbar region; G89.4 Chronic pain syndrome | CPT/HCPCS: 99212 ==

== ENCOUNTER 2023-09-03 10:28 | Outpatient (REF) | payer MEDICAID, SELFPAY ==
[2023-09-03 12:18] LABS: Estimated Average Glucose 114 mg/dL; Hemoglobin A1c % 5.6 % (<6.0)
[2023-09-03 13:05] LABS: TSH reflex Free T4 1.11 uIU/mL (0.32-4.0)
== END 2023-09-03 10:29 | disposition home or self-care (01) ==
LOC: HO.HHCL 10:28
PROVIDERS: Visit Provider Nurse Practitioner Primary Care
DX: E07.9 Disorder of thyroid, unspecified (principal); R53.83 Other fatigue; R73.03 Prediabetes
CPT/HCPCS: 36415; 83036; 84443; 85025

== ENCOUNTER 2023-09-30 09:41 | Outpatient (REF) | payer MEDICAID, SELFPAY | END 2023-09-30 09:42 | disposition home or self-care (01) | LOC: HO.MRI 09:41 | PROVIDERS: PCP Nurse Practitioner Primary Care; Visit Provider Nurse Practitioner Family | DX: M96.1 Postlaminectomy syndrome, not elsewhere classified (principal); M54.16 Radiculopathy, lumbar region | CPT/HCPCS: 72148 ==

== ENCOUNTER 2024-04-22 11:03 | Outpatient (REF) | payer MEDICAID, SELFPAY ==
--- NOTE | ~2024-04-22 | US_ITS ---
EXAMINATION: US PELVIS CLINICAL INFORMATION: Pelvic pain COMPARISON: CT abdomen and pelvis the 2022 TECHNIQUE: Ultrasound of the pelvis is performed using both transabdominal and transvaginal transducers along with Doppler. Transvaginal imaging is performed due to inadequate visualization transabdominally. FINDINGS: Uterus: The uterus is anteverted and measures 7.1 x 3.5 x 4.8 cm. The double wall endometrial thickness is 2 mm. Small amount of fluid seen within the endometrial canal. Echogenic focus within the endometrium measuring 0.2 x 0.2 x 0.2 cm. Adnexa: Both ovaries are visualized. There is normal color flow to the adnexa. There is no ovarian torsion. There is no pelvic ascites or fluid collection. Right ovary measures 2.8 x 1.6 x 1.4 cm. 3.2 mL Left ovary measures 1.9 x 1.5 x 1 cm. 1.5 mL US/US pelvic and transvaginal IMPRESSION: Small amount of fluid seen within the endometrial canal. Echogenic focus within the endometrium measuring 0.2 x 0.2 x 0.2 cm. This may represent a polyp, and could be further evaluated with hysterosonography, as clinically indicated.
== END 2024-04-22 11:04 | disposition home or self-care (01) ==
LOC: HO.US 11:03
PROVIDERS: Visit Provider Nurse Practitioner Primary Care
DX: Z12.31 Encounter for screening mammogram for malignant neoplasm of breast (principal); R10.2 Pelvic and perineal pain
CPT/HCPCS: 76830; 76856; 77063; 77067

== ENCOUNTER → 2024-04-22 12:30 | Outpatient (BNV) | payer MEDICAID, SELFPAY | PROVIDERS: Visit Provider Radiology Diagnostic Radiology | DX: Z12.31 Encounter for screening mammogram for malignant neoplasm of breast (principal) | CPT/HCPCS: 77063; 77067 ==

== ENCOUNTER 2024-05-13 09:14 | Outpatient (REF) | payer MEDICAID, SELFPAY ==
[2024-05-13 11:28] LABS: Anion Gap 11 (12-20); Blood Urea Nitrogen 13 mg/dL (9-16); Calcium 9.5 mg/dL (8.4-10.2); Carbon Dioxide 27 mmol/L (22-29); Chloride 107 mmol/L (96-108); Estimated Glomerular Filt Rate > 60; Glucose Random 98 mg/dL (60-115); Potassium 4.2 mmol/L (3.3-5.1); Sodium 141 mmol/L (135-145)
[2024-05-13 11:48] LABS: Creatinine Urine 135.21 mg/dL; Microalbum/Creatinine Ratio Ur 9.6 ug/mg cr (<30)
== END 2024-05-13 09:15 | disposition home or self-care (01) ==
LOC: HO.HHCL 09:14
PROVIDERS: Visit Provider Nurse Practitioner Primary Care
DX: I10 Essential (primary) hypertension (principal)
CPT/HCPCS: 36415; 80048; 82043; 82570

== ENCOUNTER 2024-07-07 16:34 | Outpatient (REF) | payer MEDICAID, SELFPAY ==
[2024-07-07 16:47] LABS: MANUAL DIFF FLAG NO
[2024-07-07 17:13] LABS: Basophils Percent Auto 0.3 % (0-2); Eosinophils Absolute Auto 0.2 X10*3/uL (0.0-0.4); Eosinophils Percent Auto 2.1 % (0-4); Hematocrit 40.2 % (37.0-47.0); Hemoglobin 13.1 g/dl (12.0-16.0); Imm Gran Abs Auto 0.01 X10*3/uL (0.00-0.03); Imm Gran Pct Auto 0.1 % (0.0-0.4); Lymphocytes Absolute Auto 3.2 X10*3/uL (1.2-4.9); Lymphocytes Percent Auto 45.7 % (20-40); Mean Corpuscular HGB Conc 32.6 g/dl (31.0-35.0); Mean Corpuscular Hemoglobin 31.3 pg (27.0-33.0); Mean Corpuscular Volume 96.2 fL (80.0-98.0); Mean Platelet Volume 10.3 fL (9.4-12.3); Monocytes Absolute Auto 0.7 X10*3/uL (0.1-1.2); Monocytes Percent Auto 9.5 % (2-11); Neutrophils Percent Auto 42.3 % (45-73); Platelet Count 260 X10*3/uL (160-400); Red Blood Count 4.18 X10*6/uL (4.20-5.50)
[2024-07-07 17:14] LABS: Appearance Urine Clear; Color Urine Yellow; Glucose Urine UA Negative (Negative); Leukocyte Esterase Urine Negative (Negative); Nitrite Urine Negative (Negative); PH 5.5 (5.0-9.0); Specific Gravity - Urine 1.025 (1.005-1.025); Urine Blood Negative (Negative); Urine Ketones Negative (Negative); Urine Protein Negative (Neg-Trace)
[2024-07-07 17:23] LABS: Bacteria Urine Trace (None Seen); Hyaline Casts Urine 0-2 /LPF (0-2); RBC Urine 0-2 /HPF (0-2); WBC Urine 0-5 /HPF (0-5)
[2024-07-07 17:52] LABS: Microalbum/Creatinine Ratio Ur 12.1 ug/mg cr (<30)
[2024-07-07 17:56] LABS: Anion Gap 13 (12-20); Blood Urea Nitrogen 16 mg/dL (9-16); Calcium 9.7 mg/dL (8.4-10.2); Carbon Dioxide 25 mmol/L (22-29); Chloride 106 mmol/L (96-108); Estimated Glomerular Filt Rate > 60; Glucose Random 88 mg/dL (60-115); Iron 90 mcg/dL (30-160); Magnesium 2.4 mg/dL (1.6-2.6); Percent Iron Saturation 32 % (15-50); Phosphorus 2.8 mg/dL (2.7-4.5); Potassium 3.8 mmol/L (3.3-5.1); Sodium 140 mmol/L (135-145); Total Iron Binding Capacity 281 mcg/dL (228-428); Unsaturated Iron Binding 191 ug/dL; Uric Acid 3.8 mg/dL (2.4-5.7)
[2024-07-07 18:12] LABS: Ferritin 288 ng/mL (10-250)
== END 2024-07-07 16:35 | disposition home or self-care (01) ==
LOC: HO.LAB 16:34
PROVIDERS: PCP Nurse Practitioner Primary Care; Visit Provider Internal Medicine
DX: I10 Essential (primary) hypertension (principal)
CPT/HCPCS: 36415; 80048; 81001; 82043; 82570; 82728; 83540; 83735; 84100; 84550; 85025

== ENCOUNTER 2024-09-14 12:44 | Outpatient (REF) | payer MEDICAID, SELFPAY ==
[2024-09-16 09:30] LABS: HPV 16,18/45 See PAP report
== END 2024-09-14 12:45 | disposition home or self-care (01) ==
LOC: HO.HHCLNP 12:44
PROVIDERS: Visit Provider Advanced Practice Midwife
DX: Z12.4 Encounter for screening for malignant neoplasm of cervix (principal); Z11.51 Encounter for screening for human papillomavirus (HPV)
CPT/HCPCS: 87624; 88175

== ENCOUNTER 2024-10-18 13:56 | Outpatient (REF) | payer MEDICAID, SELFPAY ==
--- NOTE | ~2024-10-18 | XR_ITS ---
EXAMINATION: XR LUMBOSACRAL SPINE CLINICAL INFORMATION: acute low back pain from lifting , hx back surgery COMPARISON: None available. Correlation made with MR lumbar 09/30/2023. TECHNIQUE: Three views of the lumbosacral spine. FINDINGS: Normal bone mineralization. No acute fracture or compression deformity. Vertebroplasty cement noted in L1 and L2. Trace levoconvex scoliosis, possibly positional. Normal lumbar lordosis. No malalignment. Disc spaces demonstrate gross preservation with mild disc spurring seen T12-L1 and L1-L2. There are prominent Schmorl's nodes in the L1 and L2 vertebral body superior endplates. [employer] Placing Supervisor hernia The more inferior levels are normal. Facets are normally aligned. No significant facet degeneration. Soft tissues demonstrate cholecystectomy clips but are otherwise normal. XR/XR lumbar spine 2-3V IMPRESSION: 1. No acute findings lumbar spine. 2. Prior vertebroplasty changes L1 and L2. Electronically signed by: Emerson Gutierrez MD 10/18/2024 02:49 PM ANNEMARIE
== END 2024-10-18 13:57 | disposition home or self-care (01) ==
LOC: HO.HHCX 13:56
PROVIDERS: Visit Provider Family Medicine
DX: M54.41 Lumbago with sciatica, right side (principal)
CPT/HCPCS: 72100

== ENCOUNTER → 2024-10-18 13:56 | Outpatient (BNV) | payer MEDICAID, SELFPAY | PROVIDERS: Visit Provider Radiology Diagnostic Radiology | DX: M51.46 Schmorl's nodes, lumbar region (principal); Z87.311 Personal history of (healed) other pathological fracture | CPT/HCPCS: 72100 ==

== ENCOUNTER 2025-04-27 10:24 | Emergency (ER) | payer MEDICAID, SELFPAY ==
--- NOTE | ~2025-04-27 | CT_ITS ---
EXAM: Lumbar spine without contrast TECHNIQUE: Axial imaging was performed from upper T12 through the lower sacrum coccygeal region without IV contrast. Coronal and sagittal reformatted images were generated from the original axial data set. ALARA: The examination used one or more of the following radiation dose reduction techniques: Automated exposure control, iterative reconstruction, and/or adjustment of mA and/or kV. DLP: 481 mGY*cm INDICATION: Lumbar pain PRIOR: MRI September 30, 2023 and x-ray October 18, 2024 FINDINGS: There are 5 [id number] lumbar segments. Methacrylate is present within L1 and L2 vertebral bodies stabilizing compression fractures, extruding out of the superior endplate of L2 to the interbody space at L1-2. Overall, the appearance is stable compared with the prior MRI. Schmorl's nodes on the inferior plate of L4 are stable. L4-5 demonstrates circumferential broad-based disc bulge with mild to moderate right and moderate to severe left foraminal narrowing. Facet sclerosis, degenerative cystic change, and osteophytes are noted involving the right greater than left L3-4, L4-5, and L5-S1. A few pseudodiverticula are present in the right colon. Imaged soft tissues are otherwise unremarkable. CT/CT lumbar spine wo IV con IMPRESSION: Stable compression fractures of L1 and L2 following kyphoplasty. Degenerative changes are most advanced at L4-5. No acute fracture. Electronically signed by: Britton Cervantes MD 04/27/2025 01:37 PM EDT
[2025-04-27 10:32] VITALS: BP 110/70; BP 119/64; PULSE 57; RESP 18; TEMP 36.6; O2SAT 97; O2SAT 99; BMI 29.8
[2025-04-27 10:42] VITALS: BP 119/64; PULSE 57; RESP 18; TEMP 36.6; O2SAT 97
--- NOTE | 2025-04-27 10:46 | PC.NURSE ---
54 F presents to ED with mid to lower back pain 04/13 that started on 04/04/25 when bending forward and picking up a grocery bag. Hx chronic back pain with slipped disc but sts pain was managed until 04/04. Sts hx asthma, hyperthyroidism, neuropathy. RR even and unlabored, denies CP or SOB. Lungs clear bilat. Pt ambulates with a cane at baseline. Pt is calm, cooperative.
--- NOTE | 2025-04-27 11:06 | ED.BACK ---
HPI - Back Pain/Injury General Chief Complaint: Back Pain/Injury Stated Complaint: BACK PAIN,HX DISC INJURY,FROM PCP OFFICE PER EMS Time Seen by Provider: 04/27/25 11:05 Source: patient Mode of arrival: EMS Limitations: no limitations History of Present Illness ED Provider: Ayanna Romero PA-C HPI Narrative: 54-year-old female with medical history of lumbar spondylosis, chronic pain syndrome, lumbar radiculopathy, HLD, depression, migraine, asthma, GERD, presents to the ED due to 3 weeks of lumbar back pain. 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 Patient reports immediately after she felt intense stabbing pain of the right lumbar back, and felt a ?bulge the size of a small watermelon on the right side of her lumbar back. Patient states she had been trying to manage the pain with hot soaks, Epsom salt soaks without relief. Patient states Tuesday 04/24 she began taking an old prescription of cyclobenzaprine 3 times a day without relief. Patient has not been taking any NSAIDs or Tylenol for pain management. Patient states the pain has been constant, and is now experiencing ?lightening ?sensation and tingling that begins on her right lower back and travels down the right leg. 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 Patient states she is unable to lie on her back, has to lay in position to sleep. Patient denies any saddle anesthesia, urinary or stool incontinence. Patient denies fever, chills chest pain, shortness of breath, nausea, vomiting Related Data Home Medications ?Medication ?Instructions ?Recorded ?Confirmed cholecalciferol (vitamin D3) 10 10 mcg PO DAILY 07/16/21 03/05/22 mcg (400 unit) capsule (Vitamin D3) amitriptyline 10 mg tablet 10 mg PO BEDTIME 03/04/22 03/05/22 valacyclovir 1 gram tablet 1,000 mg PO DAILY 03/04/22 03/05/22 albuterol sulfate 90 mcg/actuation 2 puff inhalation Q6H PRN 03/05/22 03/05/22 aerosol inhaler (ProAir HFA) Shortness Of Breath Or Wheezing fluticasone propionate 110 1 puff inhalation BID 09/01/22 mcg/actuation HFA aerosol inhaler (Flovent HFA) sumatriptan succinate 50 mg tablet 50 mg PO Q2-4H PRN Migraine 09/01/22 (Imitrex) Headache varicella-zoster gE vac,2 of 2 50 IM 09/01/22 mcg IM suspension (Shingrix gE Antigen Component) famotidine 20 mg tablet (Pepcid) 20 mg PO BEDTIME PRN Gastric Reflux 04/14/23 Previous Rx's ?Medication ?Instructions ?Recorded ondansetron 4 mg disintegrating 4 mg PO Q8H PRN nausea and 07/03/22 tablet vomiting #10 tabs linaclotide 145 mcg capsule 145 mcg PO DAILY #30 caps 04/27/23 (Linzess) acetaminophen 500 mg tablet 500 mg PO Q6H PRN fever or pain 04/27/25 (Tylenol Extra Strength) #60 tabs cyclobenzaprine 5 mg tablet 5 mg PO TID PRN muscle spasm #15 04/27/25 tabs ibuprofen 600 mg tablet 600 mg PO Q6H PRN fever or pain 04/27/25 #30 tabs lidocaine 4 % topical patch 1 patch topical DAILY PRN pain #15 04/27/25 ea prednisone 20 mg tablet 20 mg PO DAILY 5 days #5 tabs 04/27/25 Allergies Allergy/AdvReac Type Severity Reaction Status Date / Time ondansetron (From Zofran) Allergy Intermediate Hives Verified 04/27/25 10:38 Penicillins (PENICILLINS) Allergy Unknown UNKNOWN Verified 04/27/25 10:38 latex Allergy Mild Rash Uncoded 04/27/25 10:38 Review of Systems Review of Systems: CONST: Negative for fever, body aches and chills. HENT: Negative for neck pain/stiffness, headache, congestion, sore throat, swelling. EYES: Negative for discharge/pain or vision changes. RESP: Negative for cough/hemoptysis and shortness of breath. CV: Negative chest pain, difficulty breathing, palpitations. ABD: Negative pain, nausea, vomiting. : Negative increase frequency, dysuria, blood in urine or stool. MUSC: Negative for muscle aches, edema. POS R sided lumbar back pain SKIN: Negative rash, lesions/sores. NEURO: Negative headache, dizziness, weakness. Yes all other systems are reviewed and are negative FORMERLY [facility], [facility] Past Medical History Attestation statement: The following information was validated with the patient. Source: old records reviewed and nursing notes reviewed Medical History Urinary incontinence HLD (hyperlipidemia) Pre-diabetes Depression Migraine Asthma Hx of gastroesophageal reflux (GERD) Hx of herpes genitalis Elevated cholesterol Diverticulitis Surgical History Hx of cholecystectomy History of subtotal thyroidectomy History of kyphoplasty Hx of fusion of cervical spine Hx of colonoscopy Hx of esophagogastroduodenoscopy Hx of partial thyroidectomy Hx of tubal ligation Family History Family History Mother HTN (hypertension) Diabetes Father No problems noted. 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 HEENT: ?NC, AT. MMM. EOMI, clear conjunctiva, oropharynx clear. NECK: ?Supple without lymphadenopathy.? No stiffness or restricted ROM. HEART:? Normal rate and regular rhythm, normal S1/S2, no m/r/g LUNGS:? CTAB, moving air well. No crackles or wheezes are heard. ABDOMEN: ?Soft, nontender, nondistended with good bowel sounds heard. BACK: No CVAT, no obvious deformity, no overlying skin changes, no edema, TTP over right lumbar paraspinal muscles, mild tenderness over midline spine. Unable to test for straight leg test as patient is unable to lay on her back EXTREMITIES: ?Without cyanosis, clubbing or edema. NEUROLOGICAL: ?Grossly nonfocal. Alert and oriented, moving all 4 extremities. Patient unable to ambulate due to pain at this time. Skin: ?Warm and dry without any rash. Medications Administered Discontinued Medications Generic Name Dose Route Start Last Admin Trade Name Freq PRN Reason Stop Dose Admin Diazepam 2.5 mg 04/27/25 12:03 04/27/25 12:38 Diazepam 10 Mg/2 Ml Cartridge IVPUSH 04/27/25 12:04 2.5 mg STAT STA Administration Hydromorphone HCl 0.5 mg 04/27/25 13:22 04/27/25 13:41 Hydromorphone Hcl 0.5 Mg/0.5 Ml Syringe IVPUSH 04/27/25 13:23 0.5 mg ONCE ONE Administration Protocol Ketorolac Tromethamine 15 mg 04/27/25 12:08 04/27/25 12:37 Ketorolac Tromethamine 15 Mg/Ml Vial IVPUSH 04/27/25 12:09 15 mg ONCE ONE Administration Pantoprazole Sodium 40 mg 04/27/25 12:12 04/27/25 12:38 Pantoprazole Sodium 40 Mg/10 Ml Vial IVPUSH 04/27/25 12:13 40 mg ONCE ONE Administration Prednisone 40 mg 04/27/25 12:03 04/27/25 12:36 Prednisone 20 Mg Tablet PO 04/27/25 12:04 40 mg ONCE ONE Administration Medical Decision Making Medical Decision Making MDM Narrative: 54-year-old female with medical history of lumbar spondylosis, chronic pain syndrome, lumbar radiculopathy, HLD, depression, migraine, asthma, GERD, presents to the ED due to 3 weeks of lumbar back pain. 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 Patient reports immediately after she felt intense stabbing pain of the right lumbar back, and felt a ?bulge the size of a small watermelon on the right side of her lumbar back. Patient states she had been trying to manage the pain with hot soaks, Epsom salt soaks without relief. Patient states Tuesday 04/24 she began taking an old prescription of cyclobenzaprine 3 times a day without relief. Patient has not been taking any NSAIDs or Tylenol for pain management. Patient states the pain has been constant, and is now experiencing ?lightening ?sensation and tingling that begins on her right lower back and travels down the right leg. 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 Patient states she is unable to lie on her back, has to lay in position to sleep. Patient without history of IVDU VSS, in no acute distress, nontoxic appearing,patient is uncomfortable on hospital stretcher, lying in the position on right side due to lumbar back pain. On physical exam lungs clear to auscultation bilaterally, cardiac exam reveals normal rate and rhythm, no murmurs/rubs/gallops, abdomen soft, nontender, no CVA tenderness to percussion, right-sided lumbar pain TTP, mild TTP over midline spine, no overlying skin changes, no bony step-offs, no anatomical abnormalities. Will obtain labs, Due to profound tenderness, will image with CT of lumbar back Medicating patient with IV Toradol, 2.5 mg IV diazepam, 40 mg p.o. prednisone, 40 mg IV pantoprazole for gastric lining irritation. Course 13:32- labs without leukocytosis, unremarkable. Patient is still severely uncomfortable with lumbar back pain after medication, will medicate with 0.5 Dilaudid and reassess back pain after medicating. Awaiting lumbar CT results. 14:14- patient pain has improved after IV 0.5 Dilaudid and is able to ambulate without deficit. CT lumbar spine does not reveal acute fracture. Imaging does reveal stable compression fractures of L1 and L2 post kyphoplasty, with degenerative changes at L4 through 5. 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 Will refer patient to [facility] spinal center for further evaluation and managment of degenerative disc disease. Will prescribe patient 5 days of 20 mg prednisone, 5 days of 5mg cyclobenzaprine, and referal to [facility] spinal [facility] and to [facility] for further evaluation and management of lumbar back pain. Patient is in understanding and is agreeable to the plan. Patient counseled on strict return precautions Differential Diagnosis Differential Diagnoses: The differential diagnosis associated with the presentation includes Cauda equina Lumbar fracture Lumbar strain Lumbar herniated disc Admission/Observation Consideration of admission/observation: Escalation of care including admission/observation considered Lab Data MDM Lab Attestation statement: I reviewed the patient's lab results. 04/27/25 12:27 04/27/25 12:27 Labs: Lab Results 04/27/25 Range/Units 12:27 WBC 5.7 (4.8-10.8) X10*3/uL RBC 4.05 L (4.20-5.50) X10*6/uL Hgb 12.7 (12.0-16.0) g/dl Hct 37.8 (37.0-47.0) % MCV 93.3 (80.0-98.0) fL MCH 31.4 (27.0-33.0) pg MCHC 33.6 (31.0-35.0) g/dl RDW 12.5 (11.0-16.0) % Plt Count 253 (160-400) X10*3/uL MPV 10.3 (9.4-12.3) fL Immature Gran % (Auto) 0.3 (0.0-0.4) % Neut % (Auto) 55.3 (45-73) % Lymph % (Auto) 34.7 (20-40) % Greenlee % (Auto) 8.5 (2-11) % Eos % (Auto) 1.0 (0-4) % Baso % (Auto) 0.2 (0-2) % Lymph # (Auto) 2.0 (1.2-4.9) X10*3/uL Greenlee # (Auto) 0.5 (0.1-1.2) X10*3/uL Eos # (Auto) 0.1 (0.0-0.4) X10*3/uL Baso # (Auto) 0.0 (0.0-0.2) X10*3/uL Abs Immat Gran (auto) 0.02 (0.00-0.03) X10*3/uL Absolute Neuts (auto) 3.2 (2.0-8.3) x10*3/uL Absolute Nucleated RBC 0.000 (0.0-0.012) X10*3/uL Nucleated RBC % (auto) 0.0 (0.0-0.2) /100WBC Sodium 140 (135-145) mmol/L Potassium 4.0 (3.3-5.1) mmol/L Chloride 105 (96-108) mmol/L Carbon Dioxide 27 (22-29) mmol/L Anion Gap 12 (12-20) BUN 21 H (9-16) mg/dL Creatinine 0.66 (0.5-1.4) mg/dL Estim Creat Clear Calc 108.7 Estimated GFR > 60 Random Glucose 87 (60-115) mg/dL Calcium 9.5 (8.4-10.2) mg/dL Magnesium 2.3 (1.6-2.6) mg/dL Total Bilirubin 0.4 (0.0-1.0) mg/dL AST 19 (5-31) U/L ALT 22 (0-31) U/L Alkaline Phosphatase 96 (39-117) U/L Total Protein 7.9 (6.5-8.0) g/dL Albumin 4.2 (3.5-5.0) g/dL Independent Interpretation I performed an independent interpretation of an: CT Scan Radiology Impression Discussion of test interpretation with radiology: I have reviewed the radiologist's reading. Independent Historian Clinical information obtained from an independent historian. History obtained from or confirmed by: EMS External Record Review External record reviewed: Inpatient record, Office record and Outpatient record Chronic Conditions Patient?s care impacted by: Other (HLD, asthma, depression, GERD, lumbar spondylosis) Discharge Plan Discharge Clinical Impression: Lumbar radiculopathy, Strain of lumbar region Patient Disposition: Home, Self-Care Instructions: Acute Low Back Pain (ED), Lumbar Radiculopathy (ED), Back Pain (ED), Lower Back Exercises (ED) Additional Instructions: You were evaluated in the ED today due to lumbar back pain. Your lab work was reassuring, without evidence of infection. The CT imaging of your lumbar back did not reveal any fracture, or any emergent processes however did reveal degenerative changes of L4 and L5. 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 In the future when lifting you should go into the squatting position to use your legs instead of back to prevent lumbar strain. I will prescribe you 5 days of 20 mg prednisone, which is a steroid to treat inflammation, 5 days of 5 mg cyclobenzaprine which is a muscle relaxer. Additionally to manage pain you can take 500 mg of Tylenol and 600 mg of ibuprofen every 6 hours, lidocaine patches that you can place on the affected areas once every 24 hours. While using lidocaine patches do not place any heat or ice over the patches as this can burn your skin. I will provide you referrals to [facility] spine [facility], and [facility]. You need to call these offices, they will not call you to set up an appointment. Please return to the emergency department if you experience fever greater than 100.4?, worsening back pain, inability to walk, urinary or stool incontinence, loss of sensation of your inner thighs, chest pain, shortness of breath or any other worsening/concerning/new symptoms Prescriptions: New prednisone 20 mg tablet 20 mg PO DAILY 5 Days Qty: 5 0RF lidocaine 4 % adhesive patch,medicated 1 patch topical DAILY PRN (Reason: pain) Qty: 15 0RF cyclobenzaprine 5 mg tablet 5 mg PO TID PRN (Reason: muscle spasm) Qty: 15 0RF acetaminophen [Tylenol Extra Strength] 500 mg tablet 500 mg PO Q6H PRN (Reason: fever or pain) Qty: 60 0RF ibuprofen 600 mg tablet 600 mg PO Q6H PRN (Reason: fever or pain) Qty: 30 0RF No Action ondansetron 4 mg tablet,disintegrating 4 mg PO Q8H PRN (Reason: nausea and vomiting) Qty: 10 0RF famotidine [Pepcid] 20 mg tablet 20 mg PO BEDTIME PRN (Reason: Gastric Reflux) cholecalciferol (vitamin D3) [Vitamin D3] 10 mcg (400 unit) capsule 10 mcg PO DAILY amitriptyline 10 mg tablet 10 mg PO BEDTIME valacyclovir 1 gram tablet 1,000 mg PO DAILY albuterol sulfate [ProAir HFA] 90 mcg/actuation HFA aerosol inhaler 2 puff inhalation Q6H PRN (Reason: Shortness Of Breath Or Wheezing) fluticasone propionate [Flovent HFA] 110 mcg/actuation HFA aerosol inhaler 1 puff inhalation BID sumatriptan succinate [Imitrex] 50 mg tablet 50 mg PO Q2-4H PRN (Reason: Migraine Headache) Rx Instructions: do not exceed 4 doses per 24 hrs Shingrix gE Antigen Component 50 mcg suspension for reconstitution IM Linzess 145 mcg capsule 145 mcg PO DAILY Qty: 30 2RF Print Language: Lithuanian
--- OUTSIDE RECORDS SUMMARY | 2025-04-27 11:54 | XMS_ITS | Clinical Summary ---
Author Organization [facility] Address [address] [place] [address] Care Team Providers Care Legal Arbitrator Name Role Phone Merary Kirby MD Primary Care Provider Surgical History Surgery Date Site/Laterality Comments OTHER SURGICAL HISTORY PROCEDURE: HISTORICAL SUBTOTAL THYROIDECTOMY PARATHYROIDECTOMY PROCEDURE: HISTORICAL PARATHYROIDECTOMY TUBAL LIGATION PROCEDURE: HISTORICAL TUBAL LIGATION NECK SURGERY PROCEDURE: HISTORICAL NECK SURGERY; COMMENT: cervical diskectomies and fusion C3-4, C4-5, C5-6 TONSILLECTOMY PROCEDURE: HISTORICAL TONSILLECTOMY OTHER SURGICAL HISTORY 01/07/2018 PROCEDURE: COLONOSCOPY, SURGICAL Medical History Medical History Date Comments Hyperthyroidism DX:Hyperthyroidi sm Asthma DX:Asthma Major depressive disorder, r ecurrent ([facility] V24) 09/15/2016 DX:Major depressive disorder , recurrent ([facility]) History of migraine headaches DX :History of migraine headaches; COMMENT: on Propranolol Hyperlipidemia 10/24/2016 DX:Hyperlipidemi a; COMMENT: LDL cholesterol 153, 08/27/2016. Carpal tunnel syndrome 01/29/2017 DX:Carpal tunnel syndrome GERD (gastroesophageal reflux disease) 01/29/2017 DX:GERD (gastroesophageal reflux disease) Adenomyosis 01/29/2017 DX:Adenomyosis; COMMENT: 07/2015 Declined both hormonal and surgical management. Bipolar disorder ([facility] V2 4, [facility] V28) 02/10/2017 DX:Bipolar disorder ([facility]) Lumbar stenosis 02/10/2017 DX:Lumbar stenos is; COMMENT: MRI 08/2017 with DJD and L3, L4 nerve root compression. No improvement with SI joint injection or transforaminal epidural. Referred to neurosurgery 11/2017 Coccydynia 12/16/2017 DX:Coccydynia; C OMMENT: Was evaluated by [facility] 12/2017 Diverticulitis 01/11/2018 DX:Diverticuliti s; COMMENT: S/p colonoscopy 01/2018 Internal hemorrhoid 01/11/2018 DX:Internal hemorrhoid; COMMENT: S/p colonoscopy 01/2018 Narcolepsy and cataplexy 09/15/2016 DX:Narc olepsy and cataplexy; COMMENT: Referred to neurology multiple times. Non compliant Rotator cuff injury 02/18/2018 DX:Rotator c uff injury; COMMENT: Supraspinatus tendon tear Family History Medical History Relation Name Comments No Known Problems Daughter Other: Negative medical history Father No Known Problems Maternal Grandfather Hypertension Maternal Grandmother Other: Lupus Mother No Known Problems Other No Known Problems Paternal Grandfather Hypertension Paternal Grandmother No Known Problems Sister Breast cancer Neg Hx Relation Name Status Comments Daughter Father Maternal Grandfather Maternal Grandmother Mother Other Paternal Grandfather Paternal Grandmother Sister Social History Tobacco Use Types Packs/Day Years Used Date Smoking Tobacco: Former Cigarettes Q uit: 08/20/1991 Smokeless Tobacco: Never Alcohol Use Standard Drinks/Week Comments Yes 0 (1 standard drink = 0.6 oz pur e alcohol) Comments Unknown Sex and Gender Information Value Date Recorded Sex Assigned at Not on file Legal Sex Female 3:25 AM EST Gender Identity Not on file Sexual Orientation Not on file Obstetrics History Plan of Treatment Health Maintenance Due Date Last Done Comments Hepatitis B Vaccines (1 of 3 - 19+ 3-dose series) 1988 Cervical Cancer Screening: P ap Smear 1990 Pneumococcal Vaccine: 50+ Ye ars (1 of 1 - PCV) 2019 Zoster Vaccines (1 of 2) 2019 Breast Cancer Screening 10/19/2019 10/19/2017 COVID-19 Vaccine ( - 2023-2 5 season) 2024 Depression Screening 10/05/2024 Influenza Vaccine (#1) 2025 DTaP,Tdap,and Td Vaccines (2 - Td or Tdap) 08/20/2026 08/20/2016 HIB Vaccines Aged Out No longer eligi ble based on patient's age to complete this topic HPV Vaccines Aged Out No longer eligi ble based on patient's age to complete this topic Hepatitis A Vaccines Aged Out No long er eligible based on patient's age to complete this topic IPV Vaccines Aged Out No longer eligi ble based on patient's age to complete this topic MMR Vaccines Aged Out No longer eligi ble based on patient's age to complete this topic Meningococcal ACWY Vaccine Aged Out N o longer eligible based on patient's age to complete this topic Meningococcal B Vaccine Aged Out No l onger eligible based on patient's age to complete this topic RSV Immunization Patients Un melvina 20 months Aged Out No longer eligible b ased on patient's age to complete this topic Varicella Vaccines Aged Out No longer eligible based on patient's age to complete this topic Procedures Procedure Name Priority Date/Time Associated Diagnosis Comments SCR MAMMO BI INCL CAD Routine 10/19/2017 12:03 PM EST Encounter for screening mammogram for malignant neoplasm of breast from Last 3 Months or Most Recently Relevant to Health Maintenance Results * SCR MAMMO BI INCL CAD (10/19/2017 12:03 PM EST) Anatomical Region Laterality Modality Radiographic Nelly ging 09/26/2016 10:3 8 AM EST Narrative 10/19/2017 12:03 PM EST This is a summary report. The complete report is available in the patient's medical record. If you cannot access the medical record, please contact the sending organization for a detailed fax or copy. Full field digital screening mammography, reviewed with CAD and compared to previous. The breast tissue is heterogeneously dense, limiting sensitivity. No suspicious mass, architectural distortion or suspicious calcifications are identified. IMPRESSION: : Dense breast tissue, limiting the sensitivity of mammography. No mammographic evidence of malignancy. BIRADS 1-Negative; N. 5 year breast cancer risk assessment 1.0 % Lifetime breast cancer risk assessment 8.9 % Breast cancer risk category Low (<15%) Procedure Note Shabnam Beltre MD - 11/06/2023 This is a summary report. The complete report is available in thepatient's medical record. If you cannot access the medical record, pleasecontact the sending organization for a detailed fax or copy. Full field digital screening mammography, reviewed with CAD and comparedto previous. The breast tissue is heterogeneously dense, limitingsensitivity. No suspicious mass, architectural distortion or suspiciouscalcifications are identified. IMPRESSION: : Dense breast tissue, limiting the sensitivity of mammography. Nomammographic evidence of malignancy. BIRADS 1-Negative; N. 5 year breast cancer risk assessment 1.0 % Lifetime breast cancer risk assessment 8.9 % Breast cancer risk category Low (<15%) us Power Sy MD IMG XR PROCEDURES Final Result from Last 3 Months or Most Recently Relevant to Health Maintenance Care Teams Legal Arbitrator Relationship Specialty Start Date End Date Merary Kirby MD PCP - General Internal Medicine 08/20/16
--- OUTSIDE RECORDS SUMMARY | 2025-04-27 11:54 | XMS_ITS | Encounter Summary ---
Author Organization [facility] Address [address] [address] Phone Care Team Providers Care Water Sander Name Role Phone Ana Gruber AUTOMATION APPLICATION ENGINEER Primary Care Provider [phone] Reason for Visit * Reason Comments Med Refill Encounter Details Date Type Department Care Team ([facility] st Contact Info) Description 09/07/2024 Refill [facility] [address] [address] Haroon Ramos MD [address] [address] Social History Tobacco Use Types Packs/Day Years Used Date Smoking Tobacco: Never Assessed Comments Unknown Sex and Gender Information Value Date Recorded Sex Assigned at Not on file Legal Sex Female 1:00 PM EDT Gender Identity Not on file Sexual Orientation Not on file documented as of this encounter Plan of Treatment Not on file documented as of this encounter Visit Diagnoses Not on filedocumented in this encounter Care Teams Water Sander Relationship Specialty Start Date End Date Ana Gruber NP [address] [place] [id number] PCP - General Nurse Practitioner 05/17/24 documented as of this encounter
--- OUTSIDE RECORDS SUMMARY | 2025-04-27 11:54 | XMS_ITS | Clinical Summary ---
Author Organization [facility] Address [address] [place] [address] Care Team Providers Care Lining Caser Name Role Phone Unavailable Primary Care Provider Unavailabl e Immunizations Immunization Administration Dates Next Due MMR 05/16/1997 Tdap 06/20/2021,08/20/2016,06/22/2009 Social History Tobacco Use Types Packs/Day Years Used Date Smoking Tobacco: Never Assessed Intimate Partner Violence Answer Date R ecorded Fear of Current or Ex-Partner Not on file Emotionally Abused Not on file 05/28/2023 Physically Abused Not on file 05/28/2023 Sexually Abused Not on file 05/28/2023 Feel Safe at Home Not on file 05/28/2023 Comments Unknown Sex and Gender Information Value Date Recorded Sex Assigned at Not on file Legal Sex Female 11:21 AM EST Gender Identity Not on file Sexual Orientation Not on file Plan of Treatment Health Maintenance Due Date Last Done Comments Hepatitis C Screening 1969 Pap Smear 1985 Hep B (1 of 3 - 19+ 3-dose series) 1988 Mammogram/Breast Imaging 2009 Pneumococcal 50+ years (1 of 1 - PCV) 2019 Zoster (Shingrix) (1 of 2) 2019 COVID-19 Vaccine ( - 2023-2 5 season) 2024 Influenza (#1) 2025 DTaP/Tdap/Td (4 - Td or Tdap) 06/20/2031, 08/20/2016, 06/22/2009 HPV Vaccine Aged Out No longer eligi ble based on patient's age to complete this topic Hep A Aged Out No longer eligi ble based on patient's age to complete this topic Hib Aged Out No longer eligi ble based on patient's age to complete this topic Meningococcal ACWY Aged Out No longer eligible based on patient's age to complete this topic
--- OUTSIDE RECORDS SUMMARY | 2025-04-27 11:54 | XMS_ITS | Encounter Summary ---
Author Organization [employer] Address [address] [facility] 7[address] [place] [address] Care Team Providers Care Mining Captain Name Role Phone Ana Gruber Primary Care Provider [phone] Reason for Visit * Reason Onset Date Comments Nurse Triage 10/12/2024 Encounter Details Date Type Department Care Team ([facility] st Contact Info) Description 10/12/2024 Telephone [facility] [address] [place] [address] Ana Gruber ANP [address] [place] [address] Nurse Triage Social History Tobacco Use Types Packs/Day Years Used Date Smoking Tobacco: Never Passive Smoke Exposure: Never Smokeless Tobacco: Never Alcohol Use Standard Drinks/Week Comments Never 0 (1 standard drink = 0.6 oz pur e alcohol) Depression Answer Date Recorded Patient Health Questionnaire-9 Score 19 09/06/2024 Patient Health Questionnaire-9 Score 19 09/06/2024 Last PHQ-9: Questionnaire Data Not on file 1 11/07/2023 Housing Stability Answer Date Recorded What is your housing situation today? I have housing today, but I am worried about losing housing in the future 09/06/[address] you li ve. Do you have problems with any of the following? Mold 09/06/2024 Food Insecurity Answer Date Recorded Within the past 12 months, y ou worried that your food would run out before you got money to buy more: Never True 2023 Within the past 12 months,th e food you bought just didn't last and you didn't have enough money to get more: Sometimes True 09/06/2024 Transportation Answer Date Recorded In the past 12 months, has l ack of transportation kept you from medical appts, meetings, work or from getting things needed for daily living? Yes, it has kept me from medical appointments or getting medications. 09/06/2024 Utilities Answer Date Recorded In the past 12 months, has t he electric, gas, oil or water company threatened to shut off services in your home? Yes 09/06/2024 Depression Answer Date Recorded Patient Health Questionnaire-2 Score 5 09/06/2024 Internet Access Answer Date Recorded Internet Access Q1 No 09/06/2024 Internet Access Q2 Not on file 09/06/2024 Comments No Sex and Gender Information Value Date Recorded Sex Assigned at Female 08/04/2022 10:36 AM EDT Legal Sex Female 10:36 AM EDT Gender Identity Female 08/04/2022 10:36 AM EDT Sexual Orientation Straight 08/04/2022 10 :36 AM EDT documented as of this encounter Miscellaneous Notes * Telephone Encounter - Bianca Nascimento RN - 10/12/2024 12:39 PM EST called pt to triage, spoke to pt. pt states possible shingles and requesting appt with PCP today. pt has redness, rash,stinging, itching, and irritation in the skin between her vagina and her rectum.also, feeling of a possible rash starting on the back of her left leg with some peeling. pt states was told by PCP to call and book an appt today however, there are no appts to schedule today. offered appt Thursday, but pt wants to be seen sooner. advised walk in center, declined. pt states will justgo to the ER for evaluation. advised of ER cautions and possible heavy patient volumes. pt understands communication. insurance verified. Protocol Used: Shingles (Zoster) (Adult) Protocol-Based Disposition: See in Office or Video Visit Today Video visit offer not recorded Positive Triage Question: * Shingles rash (matches SYMPTOMS) and onset < 72 hours ago (3 days) * All higher-acuity triage questions were negative Care Advice Discussed: * Reassurance and Education - Shingles * Shingles - Symptoms * Shingles - Treatment * Shingles - Contagiousness * Reasons To Call Back - Spots appear elsewhere on your body. - Severe headache occurs - Eye pain or blurred vision occurs - Fever over 100.4 F (38.0 C) - You become worse * Telephone Encounter - Albert Hopson - 10/12/2024 10:52 AM EST Symptoms: Itching - No Rash, Rash or Redness on One Body Area Only Outcome: Schedule an urgent appointment (within 4 hours) or talk to a nurse or provider soon Reason: Severe itching now The caller accepted this outcome. documented in this encounter Plan of Treatment Not on file documented as of this encounter Visit Diagnoses Not on filedocumented in this encounter Additional Health Concerns Assessment Noted Time PHQ-9 Depression Total Score: 19 024 10:47 AM EST documented as of this encounter Care Teams Mining Captain Relationship Specialty Start Date End Date Ana Gruber ANP [address] [place] [address] PCP - General Family Medicine 05/23/21 Tabitha Altamirano Director Of Creative ServicesGraphic Engineer 12/28/23 documented as of this encounter
[2025-04-27 12:30] LABS: MANUAL DIFF FLAG NO
[2025-04-27 12:33] LABS: Hematocrit 37.8 % (37.0-47.0); Hemoglobin 12.7 g/dl (12.0-16.0); Imm Gran Abs Auto 0.02 X10*3/uL (0.00-0.03); Imm Gran Pct Auto 0.3 % (0.0-0.4); Lymphocytes Absolute Auto 2.0 X10*3/uL (1.2-4.9); Mean Corpuscular HGB Conc 33.6 g/dl (31.0-35.0); Mean Corpuscular Hemoglobin 31.4 pg (27.0-33.0); Mean Corpuscular Volume 93.3 fL (80.0-98.0); NRBC Abs Auto 0.000 X10*3/uL (0.0-0.012); NRBC Pct Auto 0.0 /100WBC (0.0-0.2); Platelet Count 253 X10*3/uL (160-400); Red Blood Count 4.05 X10*6/uL (4.20-5.50); White Blood Count 5.7 X10*3/uL (4.8-10.8)
[2025-04-27] MEDS: diazePAM 10 MG/2 ML CARTRIDGE 2.5 MG IVPUSH (12:38)
[2025-04-27 12:43] VITALS: BP 144/74; PULSE 46; RESP 14; TEMP 36.5; O2SAT 98
[2025-04-27 12:47] LABS: Alanine Aminotransferase 22 U/L (0-31); Albumin Level 4.2 g/dL (3.5-5.0); Alkaline Phosphatase 96 U/L (39-117); Anion Gap 12 (12-20); Aspartate Amino Transferase 19 U/L (5-31); Blood Urea Nitrogen 21 mg/dL (9-16); Calcium 9.5 mg/dL (8.4-10.2); Carbon Dioxide 27 mmol/L (22-29); Chloride 105 mmol/L (96-108); Creatinine Clr Calc Pharmacy 108.7; Estimated Glomerular Filt Rate > 60; Magnesium 2.3 mg/dL (1.6-2.6); Potassium 4.0 mmol/L (3.3-5.1); Sodium 140 mmol/L (135-145); Total Protein 7.9 g/dL (6.5-8.0)
[2025-04-27 16:21] VITALS: BP 151/72; PULSE 56; RESP 16; TEMP 36.6; O2SAT 97
[2025-04-27 16:25] VITALS: BP 151/72; PULSE 56; RESP 16; TEMP 36.6; O2SAT 97
== END 2025-04-27 16:26 | disposition home or self-care (01) ==
PROVIDERS: Emergency Provider Emergency Medicine
DX: S39.012A Strain of muscle, fascia and tendon of lower back, initial encounter (principal); X50.0XXA Overexertion from strenuous movement or load, initial encounter; M48.56XA Collapsed vertebra, not elsewhere classified, lumbar region, initial encounter for fracture; G89.4 Chronic pain syndrome; Y93.89 Activity, other specified; Y92.89 Other specified places as the place of occurrence of the external cause; Y99.8 Other external cause status; Z79.899 Other long term (current) drug therapy
CPT/HCPCS: 36415; 72131; 80053; 83735; 85025; 96374; 96375; 99284; J1171; J1885; J2470; J3360

== ENCOUNTER → 2025-04-27 12:03 | Outpatient (BNV) | payer MEDICAID, SELFPAY | PROVIDERS: Emergency Provider Emergency Medicine; Visit Provider Radiology Diagnostic Radiology | DX: M51.360 Other intervertebral disc degeneration, lumbar region with discogenic back pain only (principal) | CPT/HCPCS: 72131 ==

== ENCOUNTER 2025-05-25 10:58 | Outpatient (REF) | payer MEDICAID, SELFPAY ==
--- NOTE | ~2025-05-25 | US_ITS ---
CLINICAL HISTORY: r o R inguinal hernia, RLQ pain US pelvis limited. Comparison: None provided Findings: Peristalsing bowel seen within the right lower quadrant. Bowel does not extend into the inguinal canal. IMPRESSION: 1. No evidence of inguinal hernia. This document has been electronically signed by: Renetta Andersen MD on 05/26/2025 08:58:41
--- OUTSIDE RECORDS SUMMARY | 2025-05-25 12:33 | XMS_ITS | Clinical Summary ---
Author Organization [facility] Address [address] [place] [address] Care Team Providers Care Electronics Engineering Technician Name Role Phone Merary Kirby MD Primary [...] Asthma DX:Asthma Major depressive disorder, r ecurrent ([facility] V24) 09/15/2016 DX:Major depressive disorder , recurrent ([facility]) History of migraine headaches DX :History of migraine headaches; COMMENT: on Propranolol Hyperlipidemia 10/24/2016 DX:Hyperlipidemi a; COMMENT: LDL cholesterol 153, 08/27/2016. Carpal tunnel syndrome 01/29/2017 DX:Carpal tunnel syndrome GERD (gastroesophageal reflux disease) 01/29/2017 DX:GERD (gastroesophageal reflux disease) Adenomyosis 01/29/2017 DX:Adenomyosis; COMMENT: 07/2015 Declined both hormonal and surgical management. Bipolar disorder ([facility] V2 4, [facility] V28) 02/10/2017 DX:Bipolar disorder ([facility]) Lumbar stenosis 02/10/2017 DX:Lumbar stenos is; COMMENT: [...] Recently Relevant to Health Maintenance Care Teams Electronics Engineering Technician Relationship Specialty Start Date End Date Merary Kirby MD PCP - General Internal Medicine 08/20/16
--- OUTSIDE RECORDS SUMMARY | 2025-05-25 12:33 | XMS_ITS | Encounter Summary ---
Author Organization [employer] Address [address] [facility] [address] [place] [address] Care Team Providers Care Information Systems Auditor Name Role Phone Ana Gruber Primary Care Provider [phone] Reason for Visit * Reason Onset Date Comments Nurse Triage 10/12/2024 Encounter Details Date Type Department Care Team ([facility] st Contact Info) Description 10/12/[address] [facility] [address] [place] [address] Ana Gruber ANP [address] [place] [address] Nurse Triage Social History Tobacco Use Types [...] documented as of this encounter Care Teams Information Systems Auditor Relationship Specialty Start Date End Date Ana Gruber ANP [address] [place] [phone] PCP - General Family Medicine 05/23/21 Tabitha Altamirano Polish CompounderMetal Technician 12/28/23 documented as of this encounter
--- OUTSIDE RECORDS SUMMARY | 2025-05-25 12:33 | XMS_ITS | Encounter Summary ---
Author Organization [facility] Address [address] [address] Phone Care Team Providers Care Sign Writer Hand Name Role Phone Ana Gruber PROOFER APPRENTICE Primary Care Provider [phone] Reason for Visit * Reason Comments Med Refill Encounter Details Date Type Department Care Team ([facility] st Contact Info) Description 09/07/2024 Refill [facility] [address] [address] Haroon Ramos MD [address] [address] Social History Tobacco Use Types [...] on filedocumented in this encounter Care Teams Sign Writer Hand Relationship Specialty Start Date End Date Ana Gruber NP [address] [place] [id number] PCP - General Nurse Practitioner 05/17/24 documented as of this encounter
--- OUTSIDE RECORDS SUMMARY | 2025-05-25 12:33 | XMS_ITS | Clinical Summary ---
Author Organization [facility] Address [address] [place] [address] Care Team Providers Care Hydroelectric Operator Name Role Phone Unavailable Primary Care Provider [...] or Tdap) 06/20/2031, 08/20/2016, 06/22/2009 HPV Vaccine (No Doses Required) Completed Hep A Aged Out No longer eligi ble based on patient's age to complete this topic Hib Aged Out No longer eligi ble based on patient's age to complete this topic Meningococcal ACWY Aged Out No longer eligible based on patient's age to complete this topic
== END 2025-05-25 10:59 | disposition home or self-care (01) ==
LOC: HO.US 10:58
PROVIDERS: PCP Nurse Practitioner Primary Care; Visit Provider Nurse Practitioner Primary Care
DX: R10.31 Right lower quadrant pain (principal); K40.90 Unilateral inguinal hernia, without obstruction or gangrene, not specified as recurrent
CPT/HCPCS: 76857

== ENCOUNTER → 2025-05-25 11:11 | Outpatient (BNV) | payer MEDICAID, SELFPAY | PROVIDERS: PCP Nurse Practitioner Primary Care; Visit Provider Radiology Diagnostic Radiology | DX: R10.31 Right lower quadrant pain (principal) | CPT/HCPCS: 76857 ==

== ENCOUNTER 2025-07-03 09:15 | Outpatient (AMB) | payer MEDICAID, SELFPAY ==
--- NOTE | 2025-07-03 09:37 | A.OFFVIS_ITS ---
Vital Signs 07/03/25 09:52 Height 5 ft 7 in Weight 194 lb BMI 30.4 BP 129/64 Blood Pressure Location Lt brachial Position Sitting Pulse 65 Intake Visit Reasons: RLQ abd pain and (R) inguinal Hernia Intake Note: Patient is seen in office for evaluation of right lower quadrant pain, possible right inguinal hernia. Pt c/o: pain in the right groin, comes and goes, does not feel a lump, when eating stomach hurts and pain on the side, on and off diarrhea and constipation, denies nausea or vomit U/S: 05/26/25 CT :04/02/23 * Okay to BOOK* Finisher Denture Required: No Accompanied by: Self / Same As Patient Allergies ondansetron (From Zofran) Allergy (Intermediate, Verified 07/03/25 09:50) Hives Penicillins (PENICILLINS) Allergy (Unknown, Verified 07/03/25 09:50) UNKNOWN latex Allergy (Mild, Uncoded 07/03/25 09:50) Rash HPI Comments Details: 55-year-old female patient presenting for evaluation of a right inguinal hernia. She reports pain in the right lower quadrant and occasional swelling which comes and goes. The pain seems to increase after eating but she denies nausea, vomiting, fever or chills. She does occasionally have diarrhea and constipation. She denies bloody stools. She underwent an ultrasound of the abdomen on 05/26/2025 however no hernia was identified. A previous CT abdomen an d pelvis on 04/02/2023 did reveal a fat containing right inguinal hernia. She denies any previous history of hernias or hernia surgery. She did previously undergo a tubal ligation through a lower abdominal incision. [facility] Medical History Urinary incontinence HLD (hyperlipidemia) Pre-diabetes Depression Migraine Asthma Hx of gastroesophageal reflux (GERD) Hx of herpes genitalis Elevated cholesterol Diverticulitis Surgical History Hx of cholecystectomy History of subtotal thyroidectomy History of kyphoplasty Hx of fusion of cervical spine Hx of colonoscopy Hx of esophagogastroduodenoscopy Hx of partial thyroidectomy Hx of tubal ligation Family History Mother HTN (hypertension) Diabetes Father No problems noted. 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 Female Reproductive History Menstrual Age of Menarche: 10 Review of Systems Const All systems reviewed & are unremarkable except as noted in HPI and below Physical Exam Vital Signs: Last Vital Signs Pulse 65 07/03/25 09:52 BP 129/64 07/03/25 09:52 BMI result Body Mass Index 30.4 Const General: cooperative and no acute distress Nutritional Appearance: well nourished Orientation/consciousness: patient oriented x3 Limitations: no limitations HEENT Head: Yes normocephalic and Yes atraumatic Ears: hearing grossly normal bilaterally Resp Effort & Inspection: normal respiratory effort, no audible wheezes, no cough and no respiratory distress Cardio Jugular venous distension: no JVD GI Other: Soft, nondistended, mild tenderness in the right groin while in the standing position. Palpable hernias identified with Valsalva maneuvers. No tenderness or lump in the left groin. Inspection: Yes normal to inspection and No visible peristalsis Percussion: Yes normal to percussion Auscultation: normal bowel sounds Rectal Exam - Female: deferred Skin Other: Warm, dry, no rash Neuro General: patient oriented x3 Extrem General: Yes no clubbing, cyanosis or edema Assessment & Plan Assessment & Plan (1) Right inguinal hernia: Code(s): K40.90 - Unilateral inguinal hernia, without obstruction or gangrene, not specified as recurrent Category: Medical Plan 55-year-old female patient presenting for evaluation of a right inguinal hernia previously noted on a CT abdomen and pelvis in 2022. On examination she does indeed have a palpable hernia which reduces with light pressure and increases in size with Valsalva maneuvers. We discussed her options for repair and after discussion of the procedure, risks, and alternatives, she consents to repair of the right inguinal hernia with mesh. She will be scheduled as a short-stay surgery at her earliest convenience. Coding Level of Care Code New Pt Level 4 (87393) Diagnoses Right inguinal hernia K40.90
[2025-07-03 09:52] VITALS: BP 129/64; PULSE 65; BMI 30.4
--- OUTSIDE RECORDS SUMMARY | 2025-07-03 09:56 | XMS_ITS | Clinical Summary ---
Author Organization [facility] Address [address] [place] [address] Care Team Providers Care Employment Coach Name Role Phone Merary Kirby MD Primary [...] Asthma DX:Asthma Major depressive disorder, r ecurrent ([facility] V24) 09/15/2016 DX:Major depressive disorder , recurrent ([facility]) History of migraine headaches DX :History of migraine headaches; COMMENT: on Propranolol Hyperlipidemia 10/24/2016 DX:Hyperlipidemi a; COMMENT: LDL cholesterol 153, 08/27/2016. Carpal tunnel syndrome 01/29/2017 DX:Carpal tunnel syndrome GERD (gastroesophageal reflux disease) 01/29/2017 DX:GERD (gastroesophageal reflux disease) Adenomyosis 01/29/2017 DX:Adenomyosis; COMMENT: 07/2015 Declined both hormonal and surgical management. Bipolar disorder ([facility] V2 4, [facility] V28) 02/10/2017 DX:Bipolar disorder ([facility]) Lumbar stenosis 02/10/2017 DX:Lumbar stenos is; COMMENT: [...] 2) 2019 Breast Cancer Screening 10/19/2019 10/19/2017 Depression Screening 10/05/2024 COVID-19 Vaccine ( - 2023-2 5 season) 2025 Influenza Vaccine (#1) 2025 DTaP,Tdap,and Td Vaccines (2 - Td or Tdap) 08/20/2026 08/20/2016 RSV Immunization Adult Patie nts (1 - 1-dose 75+ series) 2044 HIB Vaccines Aged Out No longer eligi [...] Recently Relevant to Health Maintenance Care Teams Employment Coach Relationship Specialty Start Date End Date Merary Kirby MD PCP - General Internal Medicine 08/20/16
--- OUTSIDE RECORDS SUMMARY | 2025-07-03 09:56 | XMS_ITS | Clinical Summary ---
Author Organization [facility] Address [address] [place] [address] Phone Care Team Providers Care Scanning Clerk Name Role Phone Allyn Ana Donnelly NP Primary Care Provider [phone] Allergies Active Allergy Reactions Criticality Noted Date Comments Latex 08/20/2016 Metronidazole Other (see comments) 02/27/2023 Abdominal pain + N/V Penicillin G Rash High 07/07/2024 Penicillins Nausea 08/20/2016 Tuna Flavoring Agent (Non-Screening) Itching 04/06/2023 Medications albuterol (2.5 MG/3ML) 0.083% nebulizer solution Inhale 2.5 mg every 6 (six) hours if needed 9 Active albuterol HFA (PROVENTIL HFA;VENTOLIN HFA) 108 (90 Base) MCG/ACT inhaler Inhale 2 puffs every 4 (four) hours if needed for wheezing or shortness of breath 0 Active chlorthalidone 25 MG tablet Take 1 tablet by mouth 1 (one) time each day 4 Active diphenhydrAMINE (BENADRYL) 25 MG tablet Take 25 mg by mouth every 6 (six) hours if needed for itching 4 Active SUMAtriptan (IMITREX) 50 MG tablet Take 100 mg by mouth 1 (one) time if needed for migraine 4 Active cyclobenzaprine (FLEXERIL) 10 MG tablet Take 10 mg by mouth 2 (two) times a day if needed 9 Active losartan (Cozaar) 50 MG tablet Take 1 tablet (50 mg total) by mouth 1 (one) time each day 30 tablet 11 4 07/07/20 25 Active chlorthalidone 25 MG tablet Take 1 tablet (25 mg total) by mouth 1 (one) time each day 30 tablet 11 4 07/07/20 25 Active amLODIPine (NORVASC) 10 MG tablet Take 1 tablet (10 mg total) by mouth 1 (one) time each day 30 tablet 11 4 07/07/20 25 Active Blood Pressure Monitoring (Omron 10 Series BP Monitor) device 1 Units 1 (one) time each day 1 each 4 Active Active Problems No known active problems Social History Tobacco Use Types Packs/Day Years Used Date Smoking Tobacco: Never Assessed Comments Unknown Sex and Gender Information Value Date Recorded Sex Assigned at Not on file Legal Sex Female 1:00 PM EDT Gender Identity Not on file Sexual Orientation Not on file Last Filed Vital Signs Vital Sign Reading Time Taken Comments Blood Pressure 184/100 07/07/2024 3:38 PM EDT Pulse - - Temperature - - Respiratory Rate - - Oxygen Saturation 96% 07/07/2024 3:38 PM EDT Inhaled Oxygen Concentration - - Weight 91.6 kg (202 lb) 07/07/2024 3:38 PM EDT Height - - Body Mass Index - - Plan of Treatment Health Maintenance Due Date Last Done Comments Breast Cancer Screening 1969 Hepatitis B Vaccine (1 of 3 - 19+ 3-dose series) 1988 10/12/2023, 05/04/2023, 04/06/2023 Pneumococcal Vaccine: 50+ Ye ars (1 of 2 - PCV) 1988 Colorectal Cancer Screening: Annual FOBT 2018 Colorectal Cancer Screening: Colonoscopy 2018 Colorectal Cancer Screening: Sigmoidoscopy 2018 Influenza Vaccine (#1) 2025 Insurance Medicaid [place] Medicaid [place] Care Teams Scanning Clerk Relationship Specialty Start Date End Date Ana Gruber NP [address] [place] [address] PCP - General Nurse Practitioner 05/17/24
--- OUTSIDE RECORDS SUMMARY | 2025-07-03 09:56 | XMS_ITS | Encounter Summary ---
Author Organization [facility] Address [address] [address] Phone Care Team Providers Care Glass Belt Sander Name Role Phone Ana Gruber PIPE THREADER Primary Care Provider [phone] Reason for Visit * Reason Comments Med Refill Encounter Details Date Type Department Care Team ([facility] st Contact Info) Description 09/07/2024 Refill [facility] [address] [address] Haroon Ramos MD [address] [address] Social History Tobacco Use Types [...] on filedocumented in this encounter Care Teams Glass Belt Sander Relationship Specialty Start Date End Date Ana Gruber NP [address] [place] [address] PCP - General Nurse Practitioner 05/17/24 documented as of this encounter
--- OUTSIDE RECORDS SUMMARY | 2025-07-03 09:56 | XMS_ITS | Encounter Summary ---
Author Organization [employer] Address [address] [facility] 7[address] [place] [address] Care Team Providers Care Outdoor Pursuits Instructor Name Role Phone Ana Gruber Primary Care Provider [phone] Reason for Visit * Reason Onset Date Comments Nurse Triage 10/12/2024 Encounter Details Date Type Department Care Team ([facility] st Contact Info) Description 10/12/2024 Telephone [facility] MED[facility]INE [address] [place] [address] Ana Gruber ANP [address] [place] [address] Nurse Triage Social History Tobacco Use Types [...] documented in this encounter Plan of Treatment Upcoming Encounters Date Type Department Care Team (Late st Contact Info) Description 09/14/2025 11:15 AM EST Office Visit [facility] [address] [place] [address] Verena Laureano CNM [address] [place] [address] documented as of this encounter Visit Diagnoses Not on filedocumented in this encounter Additional Health Concerns Assessment Noted Time PHQ-9 Depression Total Score: 19 024 10:47 AM EST documented as of this encounter Care Teams Outdoor Pursuits Instructor Relationship Specialty Start Date End Date Ana Gruber ANP [address] [place] [address] PCP - General Family Medicine 05/23/21 Tabitha Altamirano Premium RepresentativeAircraft Assembler 12/28/23 Rhonda Rao Premium RepresentativeAircraft Assembler 06/30/25 documented as of this encounter
--- OUTSIDE RECORDS SUMMARY | 2025-07-03 09:56 | XMS_ITS | Encounter Summary ---
Author Organization [employer] Address [address] [facility] [address] [place] [address] Care Team Providers Care Senior Painter Name Role Phone Ana Gruber JESSICA Primary Care Provider [phone] Encounter Details Date Type Department Care Team ([facility] st Contact Info) Description 01/31/2025 Orders Only [facility] [address] [place], [place] [id number] Glendy Dunn Social History Tobacco Use Types Packs/Day Years [...] AM EDT documented as of this encounter Plan of Treatment Upcoming Encounters Date Type Department Care Team (Late st Contact Info) Description 09/14/2025 11:15 AM EST Office Visit [facility] [address] [place] [address] Verena Laureano CNM [address] [place] [address] documented as of this encounter Procedures Procedure Name Priority Date/Time Associated Diagnosis Comments HPV MRNA E6/E7 REFLEX TO HPV 16, 18/45 Routine 09/14/2024 12:00 AM EST documented in this encounter Results * HPV mRNA E6/E7 w/Reflex to HPV Genotypes 16, 18/45 (09/14/2024 12:00 AM EST) us Historical Provider LAB CYTOLOGY ORDERABLES F inal Result documented in this encounter Visit Diagnoses Not on filedocumented in this encounter Additional Health Concerns Assessment Noted Time PHQ-9 Depression Total Score: 19 024 10:47 AM EST documented as of this encounter Care Teams Senior Painter Relationship Specialty Start Date End Date Ana Gruber ANP [address] [place] [phone] PCP - General Family Medicine 05/23/21 Tabitha Altamirano [employer] SupervisorField Crop Harvest Contractor 12/28/23 Rhonda Rao [employer] SupervisorField Crop Harvest Contractor 06/30/25 documented as of this encounter
--- OUTSIDE RECORDS SUMMARY | 2025-07-03 09:56 | XMS_ITS | Encounter Summary ---
Author Organization [employer] Address [address] [facility] [address] [place] [address] Care Team Providers Care Call Center Operator Name Role Phone Ana Gruber Primary Care Provider [phone] Encounter Details Date Type Department Care Team (Anjelica st Contact Info) Description 05/26/2025 Results Follow-Up [facility] [address] [place] [address] Ana Gruber ANP [address] [place] [address] [employer] Social History Tobacco Use Types Packs/Day Years [...] as of this encounter Miscellaneous Notes * Result Encounter Note - JESSICA Rsaheed - 05/26/2025 1:01 PM EDT Spoke w/ pt abt results documented in this encounter Plan of Treatment Upcoming Encounters Date Type Department Care Team (Late st Contact Info) Description 09/14/2025 11:15 AM EST Office Visit [facility] [address] [place] [address] Verena Laureano CNM [address] [place] [address] documented as of this encounter Visit Diagnoses Not on filedocumented in this encounter Additional Health Concerns Assessment Noted Time PHQ-9 Depression Total Score: 19 024 10:47 AM EST documented as of this encounter Care Teams Call Center Operator Relationship Specialty Start Date End Date Ana Gruber ANP [address] [place] [id number] PCP - General Family Medicine 05/23/21 Tabitha Altamirano Portal AdministratorRn Visiting 12/28/23 Rhonda Rao Portal AdministratorRn Visiting 06/30/25 documented as of this encounter
--- OUTSIDE RECORDS SUMMARY | 2025-07-03 09:56 | XMS_ITS | Clinical Summary ---
Author Organization [employer] Address [address] [facility] [address] [place] [address] Care Team Providers Care Cte Teacher Name Role Phone Malu Oneil JESSICA Primary Care Provider [phone] Allergies Active Allergy Reactions Criticality Noted Date Comments Apple Juice 10/14/2019 Black Idkaai-Azmljtmexs-Q Quad 04/27/2025 Grape Seed 10/14/2019 Latex Rash Low 01/11/2016 Metronidazole Other 02/27/2023 Abdominal pain + N/V Other 04/27/2025 Penicillins Nausea Only,Nausea And Vomiting,Rash High 07/23/2014 Nausea, vomiting and diarrhea Tuna Flavoring Agent (Non-Screening) Itching 04/06/2023 Medications * This document contains information received from the source organization and may not represent a complete record from that organization. albuterol (Ventolin HFA) 108 (90 Base) MCG/ACT inhaler TAKE 2 PUFFS BY MOUTH EVERY 4 TO 6 HOURS NEEDED 18 g 1 4 Active SUMAtriptan (Imitrex) 50 MG tabletIndications :Migraine without aura, not refractory TAKE 2 TABLETS BY MOUTH ONCE DAILY IF NEEDED FOR MIGRAINE. Do not take more than 4 tablets per 24 hours. Try to Limit use to 4 days per month. 12 tablet 1 4 Active albuterol 0.63 MG/3ML nebulizer solutionIndicatio ns:Moderate persistent asthma without complication USE DIRECTED W/ NEBULIZER, UP TO EVERY 4 6 HOURS NEEDED FOR SHORTNESS OF BREATH, WHEEZING 75 mL 2 4 Active Blood Pressure kitIndications:El evated blood-pressure reading without diagnosis of hypertension 1 kit Once per day. 1 kit 4 Active diphenhydrAMINE (BENADryl) 25 MG tablet Take 1 tablet (25 mg) by mouth every 6 (six) hours if needed for itching. 30 tablet 4 Active amLODIPine (Norvasc) 10 MG tablet Take 10 mg by mouth Once per day. 4 07/07/20 25 Active clotrimazole (Lotrimin) 1 % creamIndications: Rash Apply twice daily for 14 days 28 g 4 Active fluticasone furoate (Arnuity Ellipta) 100 MCG/ACT inhalerIndication s:Moderate persistent asthma without complication Inhale 1 puff Once per day. Rinse mouth with water after use to reduce aftertaste and incidence of candidiasis. Do not swallow. 30 each 2 4 Active DULoxetine (Cymbalta) [address] capsule Take 40 mg by mouth Once per day. 4 Active Fluticasone Furoate (ARNUITY ELLIPTA IN) Inhale 100 mcg Once per day. 0 Active losartan (Cozaar) 50 MG tablet Take 50 mg by mouth Once per day. 4 07/07/20 25 Active gabapentin (Neurontin) 300 MG capsule Take 300 mg by mouth 2 times daily. 4 Active chlorthalidone (Hygroton) 25 MG tablet Take 25 mg by mouth Once per day. Active valACYclovir (Valtrex) 1 g tabletIndications :Herpes simplex infection Take 1 tablet once daily 90 tablet 1 5 Active predniSONE (Deltasone) 20 MG tabletIndications :Acute right-sided low back pain with right-sided sciatica 2 tabs po daily for 5 days 10 tablet 5 Active baclofen (Lioresal) 10 MG tablet Take 1 tablet (10 mg) by mouth if needed in the morning, at noon, and at bedtime for muscle spasms. 60 tablet 1 5 Active naproxen (Naprosyn) 500 MG tablet Take 1 tablet (500 mg) by mouth if needed in the morning and at bedtime for mild pain. 30 tablet 5 04/27/20 26 Active Diclofenac Sodium 1 % gel Apply 2 g topically if needed in the morning, at noon, in the evening, and at bedtime (pain). 150 g 3 Active Active Problems Problem Noted Date Diagnosed Date History of shingles 09/06/2024 Essential hypertension 04/12/2024 Overview (04/12/2024): Start chlorthalidone 25mg, renal labs 2-4 weeks, RN visit 4 weeks for BP log review tele ok Herpes simplex infection 12/07/2023 Thyroid disease 09/02/2023 09/02/2023 Migraine 09/02/2023 09/02/2023 Incontinence of urine 09/02/2023 09/02/2023 Lower abdominal pain 02/27/2023 Assessment & Plan (02/27/2023 5:39 PM EDT): DDx: Diverticulitis, Pancreatitis, lymphoma Mucus in stool probably secondary to recent diverticulitis. Has pending GI/colonoscopy. [facility] RO lymphoma Ordered CT scan for 3 months out as recommended in previous CT. Hospital discharge follow-up 02/27/2023 Assessment & Plan (02/27/2023 5:37 PM EDT): Completed course of levofloxacin. Symptoms seem to be improving. Took metronidazole for 7 days and then stopped due to adr's. She is improving and I do not think replacing metronidazole is necessary. Advised patient that if symptoms worsen of fail to continue to improve than she is to RTC or ED. Vertigo 02/26/2023 Disorder of thyroid 02/26/2023 Elevated blood-pressure read ing without diagnosis of hypertension 02/26/2023 Female stress incontinence 02/26/2023 History of cholecystectomy 02/26/2023 History of subtotal thyroidectomy 02/26/2023 Migraine headache 02/26/2023 Migraine without aura, not refractory 02/26/2023 Moderate persistent asthma without complication 02/26/2023 Prediabetes 02/26/2023 Assessment & Plan (02/27/2023 5:36 PM EDT): A1C = 5.9 Glucose = 97 No need to address this visit. Seasonal allergies 02/26/2023 Urinary incontinence 02/26/2023 Rotator cuff injury 02/18/2018 Overview (02/26/2023): Supraspinatus tendon tear Diverticulitis 01/11/2018 Overview (02/26/2023): S/p colonoscopy 01/2018 Internal hemorrhoid 01/11/2018 Overview (02/26/2023): S/p colonoscopy 01/2018 Pain in female pelvis 12/16/2017 Overview (02/26/2023): Was evaluated by [facility] 12/2017 Bipolar disorder 02/10/2017 Lumbar stenosis 02/10/2017 Overview (02/26/2023): MRI 08/2017 with DJD and L3, L4 nerve root compression. No improvement with SI joint injection or transforaminal epidural. Referred to neurosurgery 11/2017 Adenomyosis 01/29/2017 Overview (02/26/2023): 07/2015 Declined both hormonal and surgical management. Carpal tunnel syndrome 01/29/2017 GERD (gastroesophageal reflux disease) 7 Hyperlipidemia 10/24/2016 Overview (02/26/2023): LDL cholesterol 153, 08/27/2016. Asthma 09/15/2016 Major depressive disorder, recurrent 09/15/2016 Assessment & Plan (09/06/2024 4:08 PM EST): During IBH Consult AYLA Interiano presenting with depressed mood, Tearful, crying spells , hopelessness, irritable mood, loss of interests/pleasure , sense of isolation/loneliness , change in appetite or weight reduce appetite, changes in sleep difficulty falling asleep and difficulty staying asleep , fatigue/loss of energy, inappropriate/excessive guilt , difficulty concentrating, indecisiveness; for a period of 18+ mo, for most or all symptoms in the context of family issues, illness or family illness, and housing. Patient carries a medical diagnosis for Bipolar disorder per her medical chart. Today, she presented with depressive mood associated with current triggers (housing instability, legal issues concerning her adult children, youngest children with autism). Patient is currently on medication prescribed by psychiatry at [facility]. Lack of social support is identified as barrier. Explored coping strategies that she can use and practice breathing exercises during session. clinician engaged pt with active/reflective listening. Provided a safe space for patient to share her emotions and fears. Reviewed and assessed for risk, current stressors and protective factors using open-ended questions. Provided [facility] number and crisis contact information. Intake forms completed with [facility] today. Patient will see a therapist within the next days. clinician will be available to provide additional support during next medical appointment. Assessment & Plan (04/08/2023 10:34 AM EDT): ntervention: Patient with irritability, difficulty concentrating, memory concerns, and decreased interest in activities she used to enjoy. Per chart Ayla has a diagnosis of depression in the context of biopsychosocial stressors of chronic pain, family stress, and shared housing. Patient will benefit from options: 1-Discuss concerns with [facility] therapist and request he make a referral for [facility] psychological evaluation, 2- Contact [facility] at [phone] to schedule an evaluation. At this time Ayla Eavns meets criteria for Visit Diagnoses: Problem List Items Addressed This Visit Other Major depressive disorder, recurrent (CMS/HCC) Patient ready to address current needs Yes Strengths include- Ayla is connected to care management and therapy for supports PLAN: 1. Follow up with [facility] [place]: Recommended for follow-up: as needed. Contact information was shared 2. Patient goal is to participate in psychological testing 3. Behavioral Recommendations a. Discuss concerns with [facility] therapist and request he make a referral for [facility] psychological evaluation b. Contact [facility] at [phone] to schedule an evaluation. 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 Non compliant Encounters Date Type Department Care Team Description 06/30/2025 Telephone [facility] [address] [place] [address] Cat Badillo Care Coordination (ICP BH Care Plan) 06/27/2025 Telephone [facility] [address] [place] [id number] Joan Burns [place] 05/26/2025 Results Follow-Up [address] [address] Malu Oneil ANP US Pelvis Limited 05/26/2025 Orders Only [address] [address] Malu Oneil ANP RLQ abdominal pain (Primary Dx) 05/24/2025 4:00 PM EDT [facility] [address] [address] Malu Oneil ANP RLQ abdominal pain (Primary Dx); Right inguinal hernia; Hypertensive urgency 05/24/2025 Telephone [facility] [address] [address] Malu Oneil ANP appt 05/24/2025 Travel 05/16/[address] [address] Malu Oneil ANP Referral 05/15/2025 Orders Only [address] [address] Malu Oneil ANP History of kyphoplasty (Primary Dx); Compression fracture of L1 lumbar vertebra, sequela; Compression fracture of L2 lumbar vertebra, sequela; Spinal stenosis of lumbar region, unspecified whether neurogenic claudication present 05/04/[address] [address] Malu Oneil ANP Referral 04/27/2025 9:00 AM EDT Office Visit [facility] [address] [address] Jurcsak, Jyoti, DO Acute bilateral low back pain with bilateral sciatica (Primary Dx); Acute right-sided low back pain with right-sided sciatica 04/27/2025 Travel from Last 3 Months Immunizations Immunization Administration Dates Next Due Hep B, adult 10/12/2023,05/04/2023,04/06/2023 MMR 05/16/1997 Td (adult), unspecified 05/16/1997 Tdap 06/20/2021,08/20/2016,06/22/2009 Family History Medical History Relation Name Comments Other Child homicide Relation Name Status Comments Child Social History Tobacco Use Types Packs/Day Years Used Date Smoking Tobacco: Never Passive Smoke Exposure: Never Smokeless Tobacco: Never Tobacco Cessation:Counseling Given: Not Answered Alcohol Use Standard Drinks/Week Comments Never 0 [...] Orientation Straight 08/04/2022 10 :36 AM EDT Last Filed Vital Signs Vital Sign Reading Time Taken Comments Blood Pressure 150/90 05/24/2025 3:59 PM EDT man ually Pulse 62 05/24/2025 3:57 PM EDT Temperature 36.5 C (97.7 F) 05/24/2025 3:57 PM EDT Respiratory Rate 18 05/24/2025 3:57 PM EDT Oxygen Saturation 99% 05/24/2025 3:57 PM EDT Inhaled Oxygen Concentration - - Weight 88.5 kg (195 lb 2 oz) 05/24/2025 3:57 PM EDT Height 170.2 cm (5' 7 ) 05/24/2025 3:57 PM EDT Body Mass Index 30.56 05/24/2025 3:57 PM EDT Plan of Treatment Upcoming Encounters Date Type Department Care Team (Late st Contact Info) Description 09/14/2025 11:15 AM EST Office Visit [facility] [address] [place] [address] Violet Colon, [facility] [address] [place] [address] Health Maintenance Due Date Last Done Comments CT Colonography 1969 FIT DNA/Cologuard 1970 FIT 1970 FOBT 1970 Sigmoidoscopy 1970 Disability Screening 1969 HIB Vaccines (1 of 1 - Risk 1-dose series) 09/06/1970 Meningococcal Vaccine (1 - Risk 2-dose series) 1971 Meningococcal B Vaccine (1 of 5 - Increased Risk) 1979 Alcohol/Substance Use Screening 1981 Pneumococcal Vaccine: 50+ Years (1 of 2 - PCV) 1988 Zoster Vaccines (1 of 2) 2019 Depression Monitoring 03/07/2025 09/06/2024, 024 Mammogram 04/22/2025 04/22/2024, 04/04, 09/19/2022, Additional history exists COVID-19 Vaccine ( season) 2025 Influenza Vaccine (#1) 2025 Diabetes: Hemoglobin A1C 09/06/2025 024, 09/03/2023, 02/27/2023, Additional history exists SDOH Screening 09/06/2025 09/06/2024 Tobacco Screening 05/24/2026 05/24/2025 Lipid Panel 04/06/2028 04/06/2023, 06/06, 07/18/2020 Cervical Cancer Screening 09/14/2029 HPV/Cotest 09/14/2029 09/14/2024 Pap Smear 09/14/2029 09/14/2024 DTaP/Tdap/Td Vaccines (4 - Td or Tdap) 06/20/2031 06/20/2021, 08/20/2016, 06/22/2009, Additional history exists Colonoscopy 04/14/2033 04/14/2023 Colorectal Cancer Screening 04/14/2033 RSV Patients and Patients Aged 60 years or older (1 - 1-dose 75+ series) 2044 HIV Screening Completed 10/17/2019 Hepatitis C Screening Completed 07/18/2020, 020 Hepatitis B Vaccines Completed 10/12/2023, 05/04/2023, 04/06/2023 HPV Vaccines Aged Out No longer eligi ble based on patient's age to complete this topic Hepatitis A Vaccines Aged Out No long er eligible based on patient's age to complete this topic IPV Vaccines Aged Out No longer eligi ble based on patient's age to complete this topic RSV under 20 months Aged Out No longe r eligible based on patient's age to complete this topic Rotavirus Vaccines Aged Out No longer eligible based on patient's age to complete this topic Procedures Procedure Name Priority Date/Time Associated Diagnosis Comments US PELVIS LIMITED Urgent 05/26/2025 8:5 8 AM EDT RLQ abdominal pain Right inguinal hernia POCT URINALYSIS DIPSTICK Routine 05/24/2025 4:17 PM EDT RLQ abdominal pain PAP SMEAR Routine 09/14/2024 11:17 AM EST Cervical cancer screening HPV MRNA E6/E7 REFLEX TO HPV 16, 18/45 Routine 09/14/2024 12:00 AM EST POCT GLYCATED HEMOGLOBIN, TOTAL Routine 09/06/2024 10:31 AM EST Prediabetes BI MAMMOGRAM SCREENING TOMOSYNTHESIS BILATERAL Routine 04/22/2024 12:55 PM EDT HM COLONOSCOPY Routine 04/14/2023 LIPID PANEL, STANDARD Routine 04/06/2023 12:58 PM EDT Hyperlipidemia, unspecified hyperlipidemia type ZZZ HISTORICAL HEPATITIS C AB W/REFL TO HCV RNA, QN, PCR Routine 07/18/2020 3:25 PM EDT ZZZ HISTORICAL HIV AB/AG Routine 10/17/2019 11:40 AM EST from Last 3 Months or Most Recently Relevant to Health Maintenance Results * US Pelvis Limited (05/26/2025 8:58 AM EDT) Anatomical Region Laterality Modality Pelvis Ultrasound 05/26/2025 8:58 AM EDT Narrative 05/26/2025 9:00 AM EDT [place] [address] Ultrasound Report Signed Patient: Ayla Anderson MR#: [id number] : 1970 Acct:[id number] Age/Sex: 54 / F ADM Date: 05/25/25 Loc: HO.US Attending Dr: Malu Oneil NP Ordering Physician: MALU ONEIL NP Date of Service: 05/25/25 Procedure(s): US pelvic limited Accession Number(s): [id number] cc: MALU ONEIL NP CLINICAL HISTORY: r o R inguinal hernia, RLQ pain US pelvis limited. Comparison: None provided Findings: Peristalsing bowel seen within the right lower quadrant. Bowel does not extend into the inguinal canal. IMPRESSION: 1. No evidence of inguinal hernia. This document has been electronically signed by: Renetta Andersen MD on 05/26/2025 08:58:41 Dictated By: Renetta Andersen MD Signed By: <Electronically signed by Renetta Andersen MD in OV> 05/26/25858 DD/ 7 TD/TT: 05/26/25857 Transit Mixer Driver: Procedure Note Donotuseinterpreter, Image - 05/26/[address] [address] Ultrasound Report Signed Patient: Ayla AndersonMR#: [id number] : 1970Acct:[id number] Age/Sex: 54 / FADM Date: 05/25/25 Loc: .US Attending Dr: Malu Oneil NP Ordering Physician: MALU ONEIL NP Date of Service: 05/25/25 Procedure(s): US pelvic limited Accession Number(s): [id number] cc: MALU ONEIL NP CLINICAL HISTORY: r o R inguinal hernia, RLQ pain US pelvis limited. Comparison: None provided Findings: Peristalsing bowel seen within the right lower quadrant. Bowel does not extend into the inguinal canal. IMPRESSION: 1. No evidence of inguinal hernia. This document has been electronically signed by: Renetta Andersen MD on 05/26/2025 08:58:41 Dictated By: Renetta Andersen MD Signed By: <Electronically signed by Renetta Andersen MD in OV> 05/26/25858 DD/ 7 TD/TT: 05/26/25857 Transit Mixer Driver: us Malu Oneil ANP IMG US PROCEDURES Final Result * POCT Urinalysis (05/24/2025 4:17 PM EDT) Color, UA Crystal Clarity, UA Clear Glucose, UA Negative Bilirubin, UA Negative Ketones, UA Negative Spec Grav, UA 1.020 Blood, UA Negative Negative, None Detected pH, UA 7.0 Protein, UA Trace Urobilinogen, UA 0.2 Leukocytes, UA Negative Negative, Rare, Trace Nitrite, UA Negative Negative, None Detected Appearance, UA clear QC Media Lot # [id number] Lot# Expiration Date [id number] Urine 05/24/2025 4:17 PM EDT Malu LOPEZ POINT OF CARE TEST ENTER/EDIT OR DERABLES Final Result * Pap Smear (09/14/2024 11:17 AM EST) Swab Cervix uteri structure / Unknown 09/14/2024 11:17 AM EST 09/15/2024 2:10 PM EST Narrative [facility] - 09/21/2024 10:54 AM EST ----- ------- Name: Ayla Anderson Age/Sex: 54/F : 1970 Unit#: [id number] Attend Dr: VIOLET COLON CNM Re09/14/24 Status: DEP [facility] Disch: ----- ------- SPEC : [id number] RECD: 09/15/24 STATUS: DIANE ABERNATHY NUM: [id number] LITA: 09/14/24-[address]: VIOLET COLON CNM ENTERED: 09/15/24 SP TYPE: Pap Smr OTHR DR: ORDERED: Pap Smear Interpretation Satisfactory for evaluation. Negative for intraepithelial lesion or malignancy. No endocervical cells seen. HPV High Risk: Negative HPV Genotyping 16: Negative HPV Genotyping 18: Negative Clinical Information LMP: Postmenopausal Previous PAP test: Unknown date/findings Material Received ThinPrep-Cervical ----- ------- Signed (signature on file) ALEXANDR Shell (ASCP) 09/21/24 1054 ----- ------- END OF REPORT Violet [facility] LAB CYTOLOGY ORDERABLES F inal Result [facility] [address] [place] [phone] * HPV mRNA E6/E7 w/Reflex to HPV Genotypes 16, 18/45 (09/14/2024 12:00 AM EST) [facility] Provider MD LAB CYTOLOGY ORDERABLES F inal Result * POCT HGB A1C (09/06/2024 10:31 AM EST) Hemoglobin A1C 6.0 4.0 - 6.0 % QC Media Lot # [id number] Lot# Expiration Date [id number] Blood 09/06/2024 10:3 1 AM EST [facility] POINT OF CARE TEST ENTER/EDIT OR DERABLES Final Result * BI Mammogram Screening Tomosynthesis Bilateral (04/22/2024 12:55 PM EDT) Anatomical Region Laterality Modality Breast Bilateral Mammography 04/22/2024 12:5 5 PM EDT Narrative 05/17/2024 2:55 PM EDT [place] [address] Mammography Report Signed Patient: Ayla Interiano MR#: [id number] : 1970 Acct:[id number] Age/Sex: 53 / F ADM Date: 04/22/24 Loc: . Attending Dr: Malu Oneil NP Ordering Physician: MALU ONEIL NP Results: 1Negative Date of Service: 04/22/24 Follow Up: 1 Year From Orig inal Mammogram Procedure(s): MM tomosynthesis screening BI Accession Number(s): [id number] cc: MALU ONEIL NP EXAMINATION: MM SCREENING DIGITAL BREAST TOMOSYNTHESIS, BILATERAL CLINICAL INFORMATION: Screening. Asymptomatic. COMPARISON: Mammography: This study is compared with prior exams dating back to 2018. TECHNIQUE: Digital breast tomosynthesis is performed in both the craniocaudal and mediolateral oblique views along with computer-aided detection (CAD). Synthesized 2D images are generated from the tomosynthesis. FINDINGS: There are scattered areas of fibroglandular density (ACR BI-RADS breast composition Category b). There are no significant masses, abnormal calcifications, or other abnormalities. MM/MM tomosynthesis screening BI IMPRESSION: No mammographic evidence of malignancy. ASSESSMENT: BI-RADS BI-RADS 1 - Negative RECOMMENDATION: Routine annual mammography screening. 1 year F/U This examination should not preclude the clinical evaluation of a suspicious palpable abnormality. This patient's information was entered into a reminder system with a target due date for their next mammogram. Dictated By: Josie Ruano MD Signed By: <Electronically signed by Josie Ruano MD in OV> 05/17/24 1450 DD/ 1255 TD/TT: Transit Mixer Driver: Procedure Note Donotuseinterpreter, Image - 05/17/2024 [place] [address] [place] [address] Mammography Report Signed Patient: Ayla InterianoMR#: [id number] : 1970Acct:[id number] Age/Sex: 53 / FADM Date: 04/22/24 Loc: . Attending Dr: Malu Oneil COMPLAINT COORDINATOR Ordering Physician: MALU ONEIL NPResults: 1Negative Date of Service: 04/22/24Follow Up: 1 Year From Orig inal Mammogram Procedure(s): MM tomosynthesis screening BI Accession Number(s): [id number] cc: MALU ONEIL NP EXAMINATION: MM SCREENING DIGITAL BREAST TOMOSYNTHESIS, BILATERAL CLINICAL INFORMATION: Screening. Asymptomatic. COMPARISON: Mammography: This study is compared with prior exams dating back to 2018. TECHNIQUE: Digital breast tomosynthesis is performed in both the craniocaudal and mediolateral oblique views along with computer-aided detection (CAD). Synthesized 2D images are generated from the tomosynthesis. FINDINGS: There are scattered areas of fibroglandular density (ACR BI-RADS breast composition Category b). There are no significant masses, abnormal calcifications, or other abnormalities. MM/MM tomosynthesis screening BI IMPRESSION: No mammographic evidence of malignancy. ASSESSMENT: BI-RADS BI-RADS 1 - Negative RECOMMENDATION: Routine annual mammography screening. 1 year F/U This examination should not preclude the clinical evaluation of a suspicious palpable abnormality. This patient's information was entered into a reminder system with a target due date for their next mammogram. Dictated By: Josie Ruano MD Signed By: <Electronically signed by Josie Ruano MD in OV> 05/17/24 1450 DD/ 1255 TD/TT: Transit Mixer Driver: Malu Oneil ANP IMG BI PROCEDURES Final Result * Colonoscopy (04/14/2023) Colonoscopy Normal Normal Narrative Mona Glendy - 04/14/2023 Colonoscopy order added Historical Provider HEALTH MAINTENANCE Final Result * (ABNORMAL) Lipid Panel, Standard (04/06/2023 12:58 PM EDT) Pathologist [facility] Cholesterol, Total 268(H) <200 mg/dL [facility] HDL Cholesterol 67 > OR = 50 mg/dL [facility] Triglycerides 136 <150 mg/dL [facility] LDL Cholesterol 174(H) mg/dL (calc) [facility] Comment: Reference range: <100 Desirable range <100 mg/dL for primary prevention; <70 mg/dL for patients with CHD or diabetic patients with > or = 2 CHD risk factors. LDL-C is now calculated using the Emmie calculation, which is a validated novel method providing better accuracy than the Friedewald equation in the estimation of LDL-C. Dominic SS et al. WALT. 2013;310(19): 8705-5223 (http://education.edulio/faq/FDL653) Chol/HDLC Ratio 4.0 <5.0 (calc) [facility] Non-HDL Cholesterol 201(H) <130 mg/dL (calc) [facility] [place] [facility] Comment: For patients with diabetes plus 1 major ASCVD risk factor, treating to a non-HDL-C goal of <100 mg/dL (LDL-C of <70 mg/dL) is considered a therapeutic option. Blood Venous blood specimen / Unknown 04/06/2023 12:58 PM EDT 04/06/2023 12:[address] [facility] - 04/10/2023 12:19 PM EDT FASTING:NO FASTING: NO [facility] LAB BLOOD ORDERABLES Final Resul [facility] [address], [place] [address] [facility] [address] [place] [address] * HEPATITIS C AB W/REFL TO HCV RNA, QN, PCR (07/18/2020 3:25 PM EDT) Pathologist [facility] HEPATITIS C ANTIBODY NON-REACT [facility] NON-REACT [facility] INDEX 0.03 <1.00 [facility] Comment: HCV antibody was non-reactive. There is no laboratory evidence of HCV infection. In most cases, no further action is required. However, if recent HCV exposure is suspected, a test for HCV RNA (test code 44203) is suggested. For additional information please refer to http://[employer]/faq/NKN94o0 (This link is being provided for informational/ educational purposes only.) HEPATITIS C ANTIBODY NON-REACT [facility] INDEX 0.03 <1.00 [facility] Comment: HCV antibody was non-reactive. There is no laboratory evidence of HCV infection. In most cases, no further action is required. However, if recent HCV exposure is suspected, a test for HCV RNA (test code 61185) is suggested. For additional information please refer to http://[employer]/faq/MBQ55y5 (This link is being provided for informational/ educational purposes only.) HEPATITIS C ANTIBODY NON-REACT [facility] INDEX 0.03 <1.00 [facility] Comment: HCV antibody was non-reactive. There is no laboratory evidence of HCV infection. In most cases, no further action is required. However, if recent HCV exposure is suspected, a test for HCV RNA (test code 39236) is suggested. For additional information please refer to http://[employer]/faq/CZM89w2 (This link is being provided for informational/ educational purposes only.) HEPATITIS C ANTIBODY NON-REACT [facility] INDEX 0.03 <1.00 [facility] Comment: HCV antibody was non-reactive. There is no laboratory evidence of HCV infection. In most cases, no further action is required. However, if recent HCV exposure is suspected, a test for HCV RNA (test code 18391) is suggested. For additional information please refer to http://[employer]/faq/NMO16u5 (This link is being provided for informational/ educational purposes only.) HEPATITIS C ANTIBODY NON-REACT [facility] INDEX 0.03 <1.00 [facility] Comment: HCV antibody was non-reactive. There is no laboratory evidence of HCV infection. In most cases, no further action is required. However, if recent HCV exposure is suspected, a test for HCV RNA (test code 16204) is suggested. For additional information please refer to http://education.Catawiki/faq/RWI85v8 (This link is being provided for informational/ educational purposes only.) 07/18/2020 3:25 PM EDT Historical Provider HISTORICAL/NON ORDERABLE LABS Final Result Performing Organization Address [facility] Phone Number [facility] [address] * HIV AB/AG (10/17/2019 11:40 AM EST) HIV AG/AB NON[facility]ACTIVE [facility] Comment: HIV-1 p24 Ag and/or HIV-1/HIV-2 Ab not detected. A test result that is nonreactive does not exclude the possibility of exposure to or infection with HIV-1 and/or HIV-2. Nonreactive results in this assay for individuals with prior exposure to HIV-1 and/or HIV-2 may be due to antigen and antibody levels that are below the limit of detection of this assay. The [facility] Crisis Intervention Specialist HIV Ag/Ab Combo assay result and supplemental assay results should be interpreted in conjunction with the patient's clinical presentation, history and other laboratory results. If the results are inconsistent with clinical evidence, additional testing is suggested to confirm the result. 10/17/2019 11:4 0 AM EST Historical Provider HISTORICAL/NON ORDERABLE LABS Final Result Performing Organization Address [facility] Phone Number [facility] [address] from Last 3 Months or Most Recently Relevant to Health Maintenance Insurance [address] [place], [place] [address] C3 Care Teams Cte Teacher Relationship Specialty Start Date End Date Malu Oneil ANP [address] [place] [address] PCP - General Family Medicine 05/23/21 Tabitha Altamirano Senior Project Leader/Team LeadPatch Setter 12/28/23 Rhonda Rao Senior Project Leader/Team LeadPatch Setter 06/30/25
--- OUTSIDE RECORDS SUMMARY | 2025-07-03 09:56 | XMS_ITS | Encounter Summary ---
Author Organization [employer] Address [address] [facility] 7t [place] [address] Care Team Providers Care Transfusion Aide Name Role Phone Ana Gruber JESSICA Primary Care Provider [phone] Reason for Visit * Reason Onset Date Comments Care Coordination 06/30/2025 [facility] Care Pl an Encounter Details Date Type Department Care Team ([facility] st Contact Info) Description 06/30/[address] [facility] [address] [place], [place] [phone] Cat Badillo Care Coordination ([facility] Care Plan) Social History Tobacco Use Types Packs/Day Years [...] encounter Miscellaneous Notes * Telephone Encounter - Cat Badillo - 06/30/2025 1:00 PM EDT PCP Designee has received and reviewed Care Plan from [facility]: Conveyor System Dispatcher: Rhonda Rao Contact Information: [phone] Care Plan scanned into patient???s EHR and notification sent to PCP. documented in this encounter Plan of Treatment Upcoming Encounters Date Type Department Care Team ([facility] st Contact Info) Description 09/14/2025 11:15 AM EST Office Visit [facility] [address] [place] [address] Verena Laureano CNM [address] [place] [address] documented as of this encounter Visit Diagnoses Not on filedocumented in this encounter Additional Health Concerns Assessment Noted Time PHQ-9 Depression Total Score: 19 024 10:47 AM EST documented as of this encounter Care Teams Transfusion Aide Relationship Specialty Start Date End Date Ana Gruber ANP [address] [place] [address] PCP - General Family Medicine 05/23/21 Tabitha Altamirano Animal Treatment InvestigatorMaintenance And Repair Worker 12/28/23 Rhonda Rao Animal Treatment InvestigatorMaintenance And Repair Worker 06/30/25 documented as of this encounter
--- OUTSIDE RECORDS SUMMARY | 2025-07-03 09:56 | XMS_ITS | Encounter Summary ---
Author Organization [facility] Address [address] [address] Phone Care Team Providers Care Box Attacher Name Role Phone Ana Gruber PEDIATRIC GENETICIST Primary Care Provider [phone] Reason for Visit * Reason Comments Med Refill Encounter Details Date Type Department Care Team ([facility] st Contact Info) Description 08/04/2024 Refill [facility] [address] [address] Haroon Ramos MD [address] [address] Social History Tobacco Use Types [...] on filedocumented in this encounter Care Teams Box Attacher Relationship Specialty Start Date End Date Ana Gruber NP [address] [place] [address] [phone] PCP - General Nurse Practitioner 05/17/24 documented as of this encounter
--- OUTSIDE RECORDS SUMMARY | 2025-07-03 09:56 | XMS_ITS | Clinical Summary ---
Author Organization [facility] Address [address] [place] [address] Care Team Providers Care Regional Planner Name Role Phone Unavailable Primary Care Provider [...] (Shingrix) (1 of 2) 2019 COVID-19 Vaccine (1 - 2023-2 5 season) 2025 Influenza (#1) 2025 DTaP/Tdap/Td (4 - Td [...]
== END 2025-07-03 10:21 | disposition home or self-care (01) ==
LOC: HO.HGS 09:15
PROVIDERS: PCP Nurse Practitioner Primary Care; Visit Provider Surgery
DX: K40.90 Unilateral inguinal hernia, without obstruction or gangrene, not specified as recurrent (principal)
CPT/HCPCS: 99204

== ENCOUNTER → 2025-07-03 09:15 | Outpatient (BNVA) | payer MEDICAID, SELFPAY | PROVIDERS: PCP Nurse Practitioner Primary Care; Visit Provider Surgery | DX: K40.90 Unilateral inguinal hernia, without obstruction or gangrene, not specified as recurrent (principal) | CPT/HCPCS: 99202 ==

== ENCOUNTER 2025-07-13 06:01 | Day surgery (SDC) | payer MEDICAID, SELFPAY ==
--- OUTSIDE RECORDS SUMMARY | 2025-07-04 07:00 | XMS_ITS | Encounter Summary ---
Author Organization [facility] Address [address] [address] Phone Care Team Providers Care Associate Director Of Sales Name Role Phone Ana Gruber CHIEF CREDIT OFFICER Primary Care Provider [phone] Reason for Visit * Reason Comments Med Refill Encounter Details Date Type Department Care Team ([facility] st Contact Info) Description 09/07/2024 Refill [facility] [address] [address] Haroon Ramos MD [address] [address] Social History Tobacco Use Types [...] on filedocumented in this encounter Care Teams Associate Director Of Sales Relationship Specialty Start Date End Date Ana Gruber NP [address] [place] [phone] PCP - General Nurse Practitioner 05/17/24 documented as of this encounter
--- OUTSIDE RECORDS SUMMARY | 2025-07-04 07:00 | XMS_ITS | Clinical Summary ---
Author Organization [facility] Address [address] [place] [address] Phone Care Team Providers Care Biodiesel Production Technician Name Role Phone Allyn Ana Donnelly NP Primary Care Provider [phone] Allergies Active Allergy Reactions Criticality Noted Date [...] Insurance Medicaid [place] Medicaid [place] Care Teams Biodiesel Production Technician Relationship Specialty Start Date End Date Ana Gruber NP [address] [place] [phone] PCP - General Nurse Practitioner 05/17/24
--- OUTSIDE RECORDS SUMMARY | 2025-07-04 07:00 | XMS_ITS | Clinical Summary ---
Author Organization [facility] Address [address] [place] [address] Care Team Providers Care Supervisor Painting Name Role Phone Unavailable Primary Care Provider [...]
--- OUTSIDE RECORDS SUMMARY | 2025-07-04 07:00 | XMS_ITS | Encounter Summary ---
Author Organization [facility] Address [address] [address] Phone Care Team Providers Care Transfer Controller Name Role Phone Ana Gruber SACK CLEANER Primary Care Provider [phone] Reason for Visit * Reason Comments Med Refill Encounter Details Date Type Department Care Team ([facility] st Contact Info) Description 08/04/2024 Refill [facility] [address] [address] Haroon Ramos MD [address] [address] Social History Tobacco Use Types [...] on filedocumented in this encounter Care Teams Transfer Controller Relationship Specialty Start Date End Date Ana Gruber NP [address] [place] [address] [phone] PCP - General Nurse Practitioner 05/17/24 documented as of this encounter
--- OUTSIDE RECORDS SUMMARY | 2025-07-04 07:00 | XMS_ITS | Encounter Summary ---
Author Organization [employer] Address [address] [facility] 7t [place] [address] Care Team Providers Care Smooth Stucco Resurfacer Name Role Phone Ana Gruber Primary Care Provider [phone] Reason for Visit * Reason Onset Date Comments Nurse Triage 10/12/2024 Encounter Details Date Type Department Care Team ([facility] st Contact Info) Description 10/12/2024 Telephone [facility] [address] [place] [address] Ana Gruber ANP [address] [place] [address] Nurse Triage Social History Tobacco Use Types [...] Description 09/14/2025 11:15 AM EST Office Visit [facility] [address] [place] [address] Verena Laureaon CNM [address] [place] [address] documented as of this encounter Visit Diagnoses Not on filedocumented in this encounter Additional Health Concerns Assessment Noted Time PHQ-9 Depression Total Score: 19 024 10:47 AM EST documented as of this encounter Care Teams Smooth Stucco Resurfacer Relationship Specialty Start Date End Date Ana Gruber ANP [address] [place] [address] PCP - General Family Medicine 05/23/21 Tabitha Altamirano Senior Net Web DeveloperAssurance Manager Insurance 12/28/23 Rhonda Rao Senior Net Web DeveloperAssurance Manager Insurance 06/30/25 documented as of this encounter
--- OUTSIDE RECORDS SUMMARY | 2025-07-04 07:00 | XMS_ITS | Encounter Summary ---
Author Organization [employer] Address [address] [facility] [address] [place] [address] Care Team Providers Care Cartographic Engineer Name Role Phone Ana Gruber JESSICA Primary Care Provider [phone] Encounter Details Date Type Department Care Team ([facility] st Contact Info) Description 01/31/2025 Orders Only [facility] [address] [place], [place] [phone] Glendy Dunn Social History Tobacco Use Types [...] Description 09/14/2025 11:15 AM EST Office Visit [facility] [address] [place] [address] Verena Laureano CNM [address] [place] [address] documented as of this encounter Procedures Procedure [...] documented as of this encounter Care Teams Cartographic Engineer Relationship Specialty Start Date End Date Ana Gruber ANP [address] [place] [phone] PCP - General Family Medicine 05/23/21 Tabitha Altamirano Clinical TechnologistMedical Pathologist 12/28/23 Rhonda Rao Clinical TechnologistMedical Pathologist 06/30/25 documented as of this encounter
--- OUTSIDE RECORDS SUMMARY | 2025-07-04 07:01 | XMS_ITS | Clinical Summary ---
Author Organization [facility] Address [address] [place] [address] Care Team Providers Care Transcription Typist Name Role Phone Merary Kirby MD Primary [...] Asthma DX:Asthma Major depressive disorder, r ecurrent ([facility] V24) 09/15/2016 DX:Major depressive disorder , recurrent ([facility]) History of migraine headaches DX :History of migraine headaches; COMMENT: on Propranolol Hyperlipidemia 10/24/2016 DX:Hyperlipidemi a; COMMENT: LDL cholesterol 153, 08/27/2016. Carpal tunnel syndrome 01/29/2017 DX:Carpal tunnel syndrome GERD (gastroesophageal reflux disease) 01/29/2017 DX:GERD (gastroesophageal reflux disease) Adenomyosis 01/29/2017 DX:Adenomyosis; COMMENT: 07/2015 Declined both hormonal and surgical management. Bipolar disorder ([facility] V2 4, [facility] V28) 02/10/2017 DX:Bipolar disorder ([facility]) Lumbar stenosis 02/10/2017 DX:Lumbar stenos [...] Recently Relevant to Health Maintenance Care Teams Transcription Typist Relationship Specialty Start Date End Date Merary Kirby MD PCP - General Internal Medicine 08/20/16
--- OUTSIDE RECORDS SUMMARY | 2025-07-04 07:01 | XMS_ITS | Encounter Summary ---
Author Organization [employer] Address [address] [facility] 7[address] [place] [address] Care Team Providers Care Dermatology Nurse Name Role Phone Ana Gruber JESSICA Primary Care Provider [phone] Reason for Visit * Reason Onset Date Comments Care Coordination 06/30/[address] [facility] Care [address] an Encounter Details Date Type Department Care Team ([facility] st Contact Info) Description 06/30/2025 Telephone [facility] [address] [place], [place] [phone] Cat Badillo Care Coordination ([facility] Care Plan) Social History Tobacco Use [...] has received and reviewed Care Plan from [facility]: Stud Master/Mistress: Rhonda Rao Contact Information: [phone] Care Plan scanned into patient???s EHR and notification sent to PCP. documented in this encounter Plan of Treatment Upcoming Encounters Date Type Department Care Team ([facility] st Contact Info) Description 09/14/2025 11:15 AM EST Office Visit [facility] [address] [place] [address] Verena Laureano CNM [address] [place] [address] documented as of this encounter Visit Diagnoses Not on filedocumented in this encounter Additional Health Concerns Assessment Noted Time PHQ-9 Depression Total Score: 19 024 10:47 AM EST documented as of this encounter Care Teams Dermatology Nurse Relationship Specialty Start Date End Date Ana Gruber ANP [address] [place] [address] PCP - General Family Medicine 05/23/21 Tabitha Altamirano Early Childhood Lead TeacherAssurance Officer 12/28/23 Rhonda Rao Early Childhood Lead TeacherAssurance Officer 06/30/25 documented as of this encounter
--- OUTSIDE RECORDS SUMMARY | 2025-07-04 07:01 | XMS_ITS | Clinical Summary ---
Author Organization [employer] Address [address] [facility] [address] [place] [address] Care Team Providers Care Nail Puller Name Role Phone Malu Oneil JESSICA Primary Care Provider [phone] Allergies Active Allergy Reactions Criticality Noted Date Comments Apple Juice 10/14/2019 Black Pkoqcc-Tsmjwblbho-O Quad 04/27/2025 Grape Seed 10/14/2019 Latex Rash [...] currently on medication prescribed by psychiatry at [facility]. Lack of social support is identified as barrier. Explored coping strategies that she can use and practice breathing exercises during session. clinician engaged pt with active/reflective listening. Provided a safe space for patient to share her emotions and fears. Reviewed and assessed for risk, current stressors and protective factors using open-ended questions. Provided [facility] number and crisis contact information. Intake forms completed with [facility] today. Patient will see a [...] will benefit from options: 1-Discuss concerns with [facility] therapist and request he make a referral for [facility] psychological evaluation, 2- Contact [facility] at [phone] to schedule an evaluation. At this time Ayla Evans meets criteria for Visit Diagnoses: Problem List Items Addressed This Visit Other Major depressive disorder, recurrent (CMS/HCC) Patient ready to address current needs Yes Strengths include- Ayla is connected to care management and therapy for supports PLAN: 1. Follow up with [facility]: Recommended for follow-up: as needed. Contact information was shared 2. Patient goal is to participate in psychological testing 3. Behavioral Recommendations a. Discuss concerns with [facility] therapist and request he make a referral for [facility] psychological evaluation b. Contact [facility] at [phone] to schedule an evaluation. 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 Non compliant Encounters Date Type Department Care Team Description 06/30/2025 Telephone [facility] [address] [place] [address] Cat Badillo Care Coordination (ICP BH Care Plan) 06/27/2025 Telephone [facility] [address] [place] [phone] Joan Burns [place] 05/26/2025 Results Follow-Up [address] [address] Malu Oneil ANP US Pelvis Limited 05/26/2025 Orders Only [address] [address] Malu Oneil ANP RLQ abdominal pain (Primary Dx) 05/24/2025 4:00 PM EDT [facility] [address] [address] Malu Oneil ANP RLQ abdominal pain (Primary Dx); Right inguinal hernia; Hypertensive urgency 05/24/2025 Telephone [facility] [address] [address] Malu Oneil ANP appt 05/24/2025 Travel 05/16/[address] [address] Malu Oneil ANP Referral 05/15/2025 Orders Only [address] [address] Malu Oneil ANP History of kyphoplasty (Primary Dx); Compression fracture of L1 lumbar vertebra, sequela; Compression fracture of L2 lumbar vertebra, sequela; Spinal stenosis of lumbar region, unspecified whether neurogenic claudication present 05/04/[address] [address] Malu Oneil ANP Referral 04/27/2025 9:00 AM EDT [facility] [address] [address] Jurcsak, Jyoti, DO Acute bilateral low back [...] Description 09/14/2025 11:15 AM EST Office Visit [facility] [address] [place] [address] Violet Colon, [facility] [address] [place] [address] Health Maintenance Due Date Last Done Comments [...] AM EDT Narrative 05/26/2025 9:00 AM EDT [place] [address] Ultrasound Report Signed Patient: Ayla Anderson MR#: [id number] : 1970 Acct:[id number] Age/Sex: 54 / F ADM Date: 05/25/25 Loc: HO.US Attending Dr: Malu Oneil NP Ordering Physician: MALU ONEIL NP Date of Service: 05/25/25 Procedure(s): US pelvic limited Accession Number(s): [id number] cc: MALU ONEIL NP CLINICAL HISTORY: r [...] in OV> 05/26/25858 DD/ 7 TD/TT: 05/26/25857 Assistant Professor Of History: Procedure Note Donotuseinterpreter, Image - 05/26/[address] [address] Ultrasound Report Signed Patient: Ayla AndersonMR#: [id number] : 1970Acct:[id number] Age/Sex: 54 / FADM Date: 05/25/25 Loc: .US Attending Dr: Malu Oneil NP Ordering Physician: MALU ONEIL NP Date of Service: 05/25/25 Procedure(s): US pelvic limited Accession Number(s): [id number] cc: MALU ONEIL NP CLINICAL HISTORY: r [...] in OV> 05/26/25858 DD/ 7 TD/TT: 05/26/25857 Assistant Professor Of History: us Malu Oneil ANP IMG US PROCEDURES Final Result * POCT Urinalysis (05/24/2025 4:17 PM EDT) Color, UA [place] Clarity, UA Clear Glucose, UA Negative Bilirubin, UA Negative Ketones, UA Negative Spec Grav, UA 1.020 Blood, UA Negative Negative, None Detected pH, UA 7.0 Protein, UA Trace Urobilinogen, UA 0.2 Leukocytes, UA Negative Negative, Rare, Trace Nitrite, UA Negative Negative, None Detected Appearance, UA clear QC Media Lot # [id number] Lot# Expiration Date [id number] Urine 05/24/2025 4:17 PM EDT Malu LOPEZ POINT OF CARE TEST ENTER/EDIT OR DERABLES Final Result * Pap Smear (09/14/2024 11:17 AM EST) Swab Cervix uteri structure / Unknown 09/14/2024 11:17 AM EST 09/15/2024 2:10 PM EST Narrative [facility] - 09/21/2024 10:54 AM EST ----- ------- Name: Ayla Anderson Age/Sex: 54/F : 1970 Unit#: [id number] Attend Dr: VIOLET COLON CNM Re09/14/24 Status: DEP [facility]ch[facility] ----- ------- SPEC : [id number] RECD: 09/15/24 STATUS: DIANE ABERNATHY NUM: [id number] LITA: 09/14/24-[address]: VIOLET COLON CNM [...] [place] LAB CYTOLOGY ORDERABLES F inal Result [facility] [address] [place] [phone] * HPV mRNA E6/E7 w/Reflex to HPV Genotypes 16, 18/45 (09/14/2024 12:00 AM EST) [facility] Provider MD LAB CYTOLOGY ORDERABLES F inal Result * POCT HGB A1C (09/06/2024 10:31 AM EST) Hemoglobin A1C 6.0 4.0 - 6.0 % QC Media Lot # [id number] Lot# Expiration Date [id number] Blood 09/06/2024 10:3 1 AM EST [facility] POINT OF CARE TEST ENTER/EDIT OR DERABLES Final Result * BI Mammogram Screening Tomosynthesis Bilateral (04/22/2024 12:55 PM EDT) Anatomical Region Laterality Modality Breast Bilateral Mammography 04/22/2024 12:5 5 PM EDT Narrative 05/17/2024 2:55 PM EDT [place] [address] Mammography Report Signed Patient: Ayla Interiano MR#: [id number] : 1970 Acct:[id number] Age/Sex: 53 / F ADM Date: 04/22/24 Loc: . Attending Dr: Malu Oneil NP Ordering Physician: MALU ONEIL NP Results: 1Negative Date of Service: 04/22/24 Follow Up: 1 Year From Orig inal Mammogram Procedure(s): MM tomosynthesis screening BI Accession Number(s): [id number] cc: MALU ONEIL NP EXAMINATION: MM SCREENING [...] in OV> 05/17/24 1450 DD/ 1255 TD/TT: Assistant Professor Of History: Procedure Note Donotuseinterpreter, Image - 05/17/2024 [place] [address] [place] [address] Mammography Report Signed Patient: Ayla InterianoMR#: [id number] : 1970Acct:[id number] Age/Sex: 53 / FADM Date: 04/22/24 Loc: . Attending Dr: Malu Oneil SURVEY OPERATIONS DIRECTOR Ordering Physician: MALU ONEIL NPResults: 1Negative Date of Service: 04/22/24Follow Up: 1 Year From Orig inal Mammogram Procedure(s): MM tomosynthesis screening BI Accession Number(s): [id number] cc: MALU ONEIL NP EXAMINATION: MM SCREENING [...] in OV> 05/17/24 1450 DD/ 1255 TD/TT: Assistant Professor Of History: Malu Oneil ANP IMG BI PROCEDURES Final Result * Colonoscopy (04/14/2023) Colonoscopy Normal Normal Narrative Mona Glendy - 04/14/2023 Colonoscopy order added Historical Provider HEALTH MAINTENANCE Final Result * (ABNORMAL) Lipid Panel, Standard (04/06/2023 12:58 PM EDT) Pathologist [facility] Cholesterol, Total 268(H) <200 mg/dL [facility] HDL Cholesterol 67 > OR = 50 mg/dL [facility] Triglycerides 136 <150 mg/dL [facility] LDL Cholesterol 174(H) mg/dL (calc) [facility] Comment: Reference range: <100 Desirable range <100 mg/dL for primary prevention; <70 mg/dL for patients with CHD or diabetic patients with > or = 2 CHD risk factors. LDL-C is now calculated using the Emmie calculation, which is a validated novel method providing better accuracy than the Friedewald equation in the estimation of LDL-C. Dominic SS et al. WALT. 2013;310(19): 8718-8190 (http://education.Aptela/faq/SCC835) Chol/HDLC Ratio 4.0 <5.0 (calc) [facility] Non-HDL Cholesterol 201(H) <130 mg/dL (calc) [facility] Comment: For patients with diabetes plus 1 major ASCVD risk factor, treating to a non-HDL-C goal of <100 mg/dL (LDL-C of <70 mg/dL) is considered a therapeutic option. Blood Venous blood specimen / Unknown 04/06/2023 12:58 PM EDT 04/06/2023 12:59 PM EDT Narrative [facility] - 04/10/2023 12:19 PM EDT FASTING:NO FASTING: NO [facility] LAB BLOOD ORDERABLES Final Resul t [facility] [address], [place] [address] [facility] [address] [place] [address] * HEPATITIS C AB W/REFL TO HCV RNA, QN, PCR (07/18/2020 3:25 PM EDT) Pathologist [facility] HEPATITIS C ANTIBODY NON-REACT [facility] INDEX 0.03 <1.00 [facility] Comment: HCV antibody was non-reactive. There is no laboratory evidence of HCV infection. In most cases, no further action is required. However, if recent HCV exposure is suspected, a test for HCV RNA (test code 76132) is suggested. For additional information please refer to http://Site Intelligence/faq/FNZ19j8 (This link is being provided for informational/ educational purposes only.) HEPATITIS C ANTIBODY NON-REACT [facility]ACT [facility] INDEX 0.03 <1.00 [facility] Comment: HCV antibody was non-reactive. There is no laboratory evidence of HCV infection. In most cases, no further action is required. However, if recent HCV exposure is suspected, a test for HCV RNA (test code 74306) is suggested. For additional information please refer to http://Site Intelligence/faq/WIG24l3 (This link is being provided for informational/ educational purposes only.) HEPATITIS C ANTIBODY NON-REACT [facility] INDEX 0.03 <1.00 [facility] Comment: HCV antibody was non-reactive. There is no laboratory evidence of HCV infection. In most cases, no further action is required. However, if recent HCV exposure is suspected, a test for HCV RNA (test code 52715) is suggested. For additional information please refer to http://Site Intelligence/faq/XLV11p3 (This link is being provided for informational/ educational purposes only.) HEPATITIS C ANTIBODY NON-REACT [facility] INDEX 0.03 <1.00 [facility] Comment: HCV antibody was non-reactive. There is no laboratory evidence of HCV infection. In most cases, no further action is required. However, if recent HCV exposure is suspected, a test for HCV RNA (test code 74452) is suggested. For additional information please refer to http://[employer] Media.GenePeeks/faq/MGR60p1 (This link is being provided for informational/ educational purposes only.) HEPATITIS C ANTIBODY NON-REACT [facility] INDEX 0.03 <1.00 [facility] Comment: HCV antibody was non-reactive. There is no laboratory evidence of HCV infection. In most cases, no further action is required. However, if recent HCV exposure is suspected, a test for HCV RNA (test code 70443) is suggested. For additional information please refer to http://education.GenePeeks/faq/HNY74x8 (This link is being provided for informational/ educational purposes only.) 07/18/2020 3:25 PM EDT Historical Provider HISTORICAL/NON ORDERABLE LABS Final Result Performing Organization Address [facility] Phone Number [facility] [address] * HIV AB/AG (10/17/2019 11:40 AM [...] of detection of this assay. The Das Toe Stripper HIV Ag/Ab Combo assay result and supplemental assay results should be interpreted in conjunction with the patient's clinical presentation, history and other laboratory results. If the results are inconsistent with clinical evidence, additional testing is suggested to confirm the result. 10/17/2019 11:4 0 AM EST Historical Provider HISTORICAL/NON ORDERABLE LABS Final Result Performing Organization Address [facility] Phone Number [facility] [address] from Last 3 Months or Most Recently Relevant to Health Maintenance Insurance [address] [place], [place] [address] Care Teams Nail Puller Relationship Specialty Start Date End Date Malu Oneil ANP [address] [place] [address] PCP - General Family Medicine 05/23/21 Tabitha Altamirano At Risk ParaprofessionalHeel Former 12/28/23 Rhonda Rao At Risk ParaprofessionalHeel Former 06/30/25
--- OUTSIDE RECORDS SUMMARY | 2025-07-04 07:01 | XMS_ITS | Encounter Summary ---
Author Organization [employer] Address [address] [facility] [address] [place] [address] Care Team Providers Care Chain Forming Machine Operator Name Role Phone Ana Gruber Primary Care Provider [phone] Encounter Details Date Type Department Care Team (Anjelica st Contact Info) Description 05/26/2025 Results Follow-Up [facility] [address] [place] [address] Ana Gruber ANP [address] [place] [address] US Pelvis Limited Social History Tobacco Use [...] Notes * Result Encounter Note - JESSICA Rasheed - 05/26/2025 1:01 PM EDT Spoke w/ pt abt results documented in this encounter Plan of Treatment Upcoming Encounters Date Type Department Care Team (Late st Contact Info) Description 09/14/2025 11:15 AM EST Office Visit [facility] [address] [place] [address] Verena Laureano CNM [address] [place] [address] documented as of this encounter Visit Diagnoses Not on filedocumented in this encounter Additional Health Concerns Assessment Noted Time PHQ-9 Depression Total Score: 19 024 10:47 AM EST documented as of this encounter Care Teams Chain Forming Machine Operator Relationship Specialty Start Date End Date Ana Gruber ANP [address] [place] [address] PCP - General Family Medicine 05/23/21 Tabitha Altamirano Fish ProtectorTape Control Skin Or Spar Mill Operator 12/28/23 Rhonda Rao Fish ProtectorTape Control Skin Or Spar Mill Operator 06/30/25 documented as of this encounter
[2025-07-11 07:37] VITALS: BMI 30.4
--- NOTE | 2025-07-12 09:02 | HO.ANESPROP2 ---
Documented by User: Shira Baron NP 07/12/25 09:04 HPI - Anesthesia Eval Consult details Narrative: 55 yr old female for right Repair Hernia Inguinal Reducible with mesh Asthma: prn JAKE inhaler PMFSH Active Problems Active Problems: All Active Problems Right inguinal hernia (Acute) Lumbar spondylosis (Acute) Chronic pain syndrome (Acute) Cystocele with uterine prolapse (Acute) COVID-19 (Acute) Postlaminectomy syndrome, cervical (Acute) Lumbar radiculopathy (Acute) Past Medical History Medical History Urinary incontinence HLD (hyperlipidemia) Pre-diabetes Depression Migraine Asthma Hx of gastroesophageal reflux (GERD) Hx of herpes genitalis Elevated cholesterol Diverticulitis Family History Family History Mother HTN (hypertension) Diabetes Father No problems noted. 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 Allergies Allergy/AdvReac Type Severity Reaction Status Date / Time ondansetron (From Zofran) Allergy Intermediate Hives Verified 07/03/25 09:50 Penicillins (PENICILLINS) Allergy Unknown UNKNOWN Verified 07/03/25 09:50 latex Allergy Mild Rash Uncoded 07/03/25 09:50 Home Medications ?Medication ?Instructions ?Recorded ?Confirmed ?Last Taken ?Type cholecalciferol (vitamin D3) 10 10 mcg PO DAILY 07/16/21 07/13/25 Unknown History mcg (400 unit) capsule (Vitamin D3) amitriptyline 10 mg tablet 10 mg PO BEDTIME 03/04/22 07/13/25 Unknown History valacyclovir 1 gram tablet 1,000 mg PO DAILY 03/04/22 07/13/25 Unknown History albuterol sulfate 90 mcg/actuation 2 puff inhalation Q6H PRN 03/05/22 07/13/25 Unknown History aerosol inhaler (ProAir HFA) Shortness Of Breath Or Wheezing fluticasone propionate 110 1 puff inhalation BID 09/01/22 07/13/25 Unknown History mcg/actuation HFA aerosol inhaler (Flovent HFA) sumatriptan succinate 50 mg tablet 50 mg PO Q2-4H PRN Migraine 09/01/22 07/13/25 Unknown History (Imitrex) Headache famotidine 20 mg tablet (Pepcid) 20 mg PO BEDTIME PRN Gastric Reflux 04/14/23 07/13/25 Unknown History amlodipine 10 mg tablet 10 mg PO DAILY 07/13/25 07/13/25 Unknown History losartan 50 mg tablet 50 mg PO DAILY 07/13/25 07/13/25 Unknown History Exam Height,Weight and Vital Signs: Height 5 ft 7 in Weight 87.997 kg Assessment and Plan Final Anesthetic Review Family History of Problems with Anesthesia: No History of Problems with Anesthesia: No Documented by User: Kirill Cormier MD 07/13/25 07:22 [facility] Past Medical History Medical History Urinary incontinence HLD (hyperlipidemia) Pre-diabetes Depression Migraine Asthma Hx of gastroesophageal reflux (GERD) Hx of herpes genitalis Elevated cholesterol Diverticulitis Family History Family History Mother HTN (hypertension) Diabetes Father No problems noted. 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 Allergies Allergy/AdvReac Type Severity Reaction Status Date / Time ondansetron (From Zofran) Allergy Intermediate Hives Verified 07/03/25 09:50 Penicillins (PENICILLINS) Allergy Unknown UNKNOWN Verified 07/03/25 09:50 latex Allergy Mild Rash Uncoded 07/03/25 09:50 Home Medications ?Medication ?Instructions ?Recorded ?Confirmed ?Last Taken ?Type cholecalciferol (vitamin D3) 10 10 mcg PO DAILY 07/16/21 07/13/25 Unknown History mcg (400 unit) capsule (Vitamin D3) amitriptyline 10 mg tablet 10 mg PO BEDTIME 03/04/22 07/13/25 Unknown History valacyclovir 1 gram tablet 1,000 mg PO DAILY 03/04/22 07/13/25 Unknown History albuterol sulfate 90 mcg/actuation 2 puff inhalation Q6H PRN 03/05/22 07/13/25 Unknown History aerosol inhaler (ProAir HFA) Shortness Of Breath Or Wheezing fluticasone propionate 110 1 puff inhalation BID 09/01/22 07/13/25 Unknown History mcg/actuation HFA aerosol inhaler (Flovent HFA) sumatriptan succinate 50 mg tablet 50 mg PO Q2-4H PRN Migraine 09/01/22 07/13/25 Unknown History (Imitrex) Headache famotidine 20 mg tablet (Pepcid) 20 mg PO BEDTIME PRN Gastric Reflux 04/14/23 07/13/25 Unknown History amlodipine 10 mg tablet 10 mg PO DAILY 07/13/25 07/13/25 Unknown History losartan 50 mg tablet 50 mg PO DAILY 07/13/25 07/13/25 Unknown History Exam Exam Date and Time: 07/13/2025 Narrative Narrative: also on amlodipine and losartan. Airway Mallampati Class: II TM Dist: >3cm Neck ROM: Full Heart: rrr Lungs: ctab vesicular Assessment and Plan Assessment Anesthesia Assessment: Anesthesia Plan Discussed and Chart Reviewed Final Anesthetic Review NPO: Yes ASA Class: II and III Final Preanesthetic Review: No Changes in Pt Med Stat, Meds/Allgs Chart Reviewed, Consent Obtained/Reviewed and Anes Risks/Benef Reviewed Patient Risk: Low Procedure Risk: Low Anesthetic Plan Anesthetic Plan: GA Disposition: Standard PACU
[2025-07-13] VITALS (8 sets, daily range): BP systolic 109–153; BP diastolic 63–79; PULSE 49–65; RESP 10–18; TEMP 36.4–36.9; O2SAT 97–100
[2025-07-13] MEDS: Lactated Ringers 1,000 ML 100 ML IVCONT (06:35)
--- NOTE | 2025-07-13 07:18 | MHC.SHP ---
Pre-Procedural Eval Section A - 24 Hr Update-Section A only Date of Service: 07/13/25 The patient is an INPATIENT: No Changes since office visit: Yes Patient answered all questions; No Cold of Flu in the past 2 weeks, No New Medical Problems and No Changes in Medication The patient has been examined within 24 hours of the surgical procedure. The History & Physical has been completed within 30 days and I have reviewed it.: Yes Section B - Complete if H&P > 30 days Chief Complaint: Unilateral inguinal hernia, without obstruction Allergies: Allergies Allergy/AdvReac Type Severity Reaction Status Date / Time ondansetron (From Zofran) Allergy Intermediate Hives Verified 07/03/25 09:50 Penicillins (PENICILLINS) Allergy Unknown UNKNOWN Verified 07/03/25 09:50 latex Allergy Mild Rash Uncoded 07/03/25 09:50 Plan Diagnosis/Plan: Unchanged I have reviewed the history and physical and performed a pertinent physical examination on my patient. No changes have occurred unless specified. Time Spent With Patient Time: Total time managing care of this patient today ____ minutes.
--- NOTE | 2025-07-13 08:25 | W.PM.OPN ---
Operative Note Operative Note Date of Service: 07/13/25 Narrative: Preoperative diagnosis: Right inguinal hernia Postoperative diagnosis: Same Procedure: Repair of right inguinal hernia with mesh Surgeon: Stephane Yang MD Coremaker Machine: Angel Luis Ulrich PA-C, MARY ANN RaviS Anesthesia: General LMA Indications for procedure: 55-year-old female patient presenting with complaints of pain in the right lower quadrant groin. Workup with CT abdomen and pelvis confirmed a fat containing right inguinal hernia. She presents today for repair of this right inguinal hernia with mesh. Operative findings: Indirect right inguinal hernia containing fat Specimen: Lipoma of the cord right groin Estimated blood loss: Less than 2 mL Complications: None Procedure details: Patient was brought to the OR and placed in a supine position. After administering general anesthesia the patient's abdomen was prepped with ChloraPrep and draped in a sterile fashion. A surgical time-out was called the consent confirmed. Patient received preoperative antibiotics and Venodyne boots were in place. Local anesthesia consisting of 0.5% Sensorcaine was infiltrated over the right inguinal ligament. Incision was then made with a scalpel and carried out through subcutaneous tissue, past Luiz's fascia and up to the external oblique aponeurosis. Additional local was placed below the aponeurosis in the aponeurosis incised with a scalpel. This was then widened with the Metzenbaum scissors. The round ligament was then dissected free from the surrounding inguinal canal. This was retracted using a Christophe drain. A lipoma was noted within the round ligament and dissected down to the internal ring. This was then ligated with a 3-0 Polysorb tie and excised. This was sent as a specimen labeled lipoma of the cord. Attention was then directed to the floor of the inguinal canal. Fibers of the internal oblique and transversalis were incised with the electrocautery and a preperitoneal space entered. This was then widened using an open Ray-Fausto sponge. A large PHS mesh was then obtained. The circular underlay was deployed within the preperitoneal space. The overlay was then secured to the pubic tubercle, conjoined tendon, and shelving edge of the inguinal ligament using a 0 Polysorb suture. A slit was made in the mesh in the mesh wrapped around the round ligament at the internal ring and secured to the shelving edge of the inguinal ligament. This was again using the 0 Polysorb suture. The wrap was tight enough to allow only the tip of the index finger to pass. Wounds were then irrigated with saline solution and suctioned dry. External oblique aponeurosis was then closed using a 2-0 Polysorb suture. Approximately 6 mL of Zenrelef was then instilled below the external oblique aponeurosis. Luiz's fascia and dermis were then reapproximated using interrupted 3-0 Polysorb sutures. Skin was closed using a running subcuticular 4-0 Polysorb suture. Steri-Strips, 4 x 4 gauze and Tegaderm were then applied. The patient tolerated the procedure well. Sponge, instrument, needle counts were reported as correct. The patient was transferred to PACU in stable condition.
--- NOTE | 2025-07-13 10:36 | PC.NURSE ---
PATIENT NAUSEOUS AND VOMITED UP APPROXIMATELY 500 ML OVER A PERIOD OF APPROX 45 MINUTES. PATIENT STATES FEELING BETTER AFTER VOMITING. PATIENT HAD REFUSED OFFERS OF MEDICATION FOR NAUSEA. PATIENT ALSO ALLERGIC TO ZOFRAN. PATIENT LOOKS AND FEELS BETTER AFTER A COOL CLOTH AND TIME. PATIENT DISCHARGED HOME AT THIS TIME. PATIENT INSTRUCTED TO CALL DR. NY'S OFFICE IF NAUSEA RESTARTED AND/OR GOING TO THE ER WITH AND DIFFICULTIES. PATIENT ACKNOWLEDGED.
== END 2025-07-13 10:40 | disposition home or self-care (01) ==
PROVIDERS: PCP Nurse Practitioner Primary Care; Visit Provider Surgery
PROC: (CPT 49505; principal; 2025-07-13 07:30)
DX: K40.90 Unilateral inguinal hernia, without obstruction or gangrene, not specified as recurrent (principal); Z87.19 Personal history of other diseases of the digestive system; I10 Essential (primary) hypertension; E78.00 Pure hypercholesterolemia, unspecified; J45.909 Unspecified asthma, uncomplicated; G43.909 Migraine, unspecified, not intractable, without status migrainosus; R73.03 Prediabetes; Z79.51 Long term (current) use of inhaled steroids; Z79.899 Other long term (current) drug therapy; Z88.0 Allergy status to penicillin; Z88.8 Allergy status to other drugs, medicaments and biological substances; Z91.040 Latex allergy status; Z98.51 Tubal ligation status; Z98.890 Other specified postprocedural states; Z87.891 Personal history of nicotine dependence
CPT/HCPCS: 49505; 88304; C1781; J0131; J0668; J1100; J1171; J1885; J2003; J2250; J2704; J2765; J3010; J3374

== ENCOUNTER → 2025-07-13 06:01 | Outpatient (BNV) | payer MEDICAID, SELFPAY | PROVIDERS: PCP Nurse Practitioner Primary Care; Visit Provider Surgery | DX: K40.90 Unilateral inguinal hernia, without obstruction or gangrene, not specified as recurrent (principal) | CPT/HCPCS: 49505 ==

== ENCOUNTER 2025-07-24 11:59 | Outpatient (REF) | payer MEDICAID, SELFPAY ==
--- OUTSIDE RECORDS SUMMARY | 2025-07-24 17:40 | XMS_ITS | Encounter Summary ---
Author Organization [employer] Address [address] [facility] [address] [place] [address] Care Team Providers Care Blood Or Blood Bank Technician Name Role Phone Allyn Ana LOPEZ Primary Care Provider [phone] Reason for Visit * Reason Comments Vaginal Itching Encounter Details Date Type Department Care Team ([facility] st Contact Info) Description 07/24/2025 5:40 PM EDT Office Visit [facility] [address] [place] [address] Darlyn Kat FNP [address] [place] [address] Vaginal itching (Primary Dx); Vaginal discharge Social History Tobacco Use Types Packs/Day Years [...] AM EDT documented as of this encounter Last Filed Vital Signs Vital Sign Reading Time Taken Comments Blood Pressure 131/77 07/24/2025 5:45 PM EDT Pulse 99 07/24/2025 5:45 PM EDT Temperature 36.5 C (97.7 F) 07/24/2025 5:45 PM EDT Respiratory Rate 18 07/24/2025 5:45 PM EDT Oxygen Saturation 99% 07/24/2025 5:45 PM EDT Inhaled Oxygen Concentration - - Weight 88.3 kg (194 lb 9.6 oz) 07/24/2025 5:45 P M EDT Height - - Body Mass Index 30.48 05/24/2025 3:57 PM EDT documented in this encounter Plan of Treatment Upcoming Encounters Date Type Department Care Team (Late st Contact Info) Description 09/14/2025 11:15 AM EST Office Visit [facility] [address] [place] [address] Verena Laureano CNM [address] [place] [address] Scheduled Orders Name Type Priority Associated Diagnoses Order Schedule Urine Culture Routine Microbiology Routine Vaginal itching Ordered: 07/24/2025 POCT urinalysis dipstick manually resulted (CPT 70505) Point of Care Testing Routine Vaginal discharge Ordered: 07/25/2025 documented as of this encounter Procedures Procedure Name Priority Date/Time Associated Diagnosis Comments POCT URINALYSIS DIPSTICK Routine 07/24/2025 6:39 PM EDT Vaginal itching BACTERIAL VAGINOSIS PANEL Routine 07/24/2025 6:38 PM EDT Vaginal itching Vaginal discharge documented in this encounter Results * POCT Urinalysis (07/24/2025 6:39 PM EDT) Color, UA Yellow Clarity, UA Clear Glucose, UA Negative Bilirubin, UA Negative Ketones, UA Negative Spec Grav, UA 1.020 Blood, UA Negative Negative, None Detected pH, UA 7.0 Protein, UA Negative Urobilinogen, UA 4.0 Leukocytes, UA Trace Negative, Rare, Trace Nitrite, UA Negative Negative, None Detected Appearance, UA yellow QC Media Lot # [id number] Lot# Expiration Date Urine (Urine, Random) 07/24/2025 6:39 PM EDT [facility] POINT OF CARE TEST ENTER/EDIT ORDERABLES Final Result * Bacterial Vaginosis Panel (07/24/2025 6:38 PM EDT) TRICHOMONAS VAGINALIS DETECTION BY PCR NOT DETECTED Not Detect [facility] BACTERIAL VAGINOSIS DETECTION BY PCR NEGATIVE Negative [facility] Comment:The BV organism targ ets of the Xpert Xpress MVP test can becommensal in women; Xpert Xpress MVP positive results forbacterial vaginosis should be considered in conjunction withother clinical and patient information to determine thedisease status. Organisms that are not detected by the XpertXpress MVP test have also been reported to be associatedwith BV and aerobic vaginitis.The Xpert Xpress MVP test performance has not been evaluatedin patients under the age of 14. JESS GROUP DETECTION BY PCR NOT DETECTED Not Detect [facility] Jess glab krusei PCR NOT DETECTED Not Detect [facility] Swab Vaginal structure / Unknown 07/24/2025 6:38 PM EDT 07/25/2025 1:31 PM EDT Darlyn Kat MAINTENANCE REPAIRER LAB MICROBIOLOGY - GENERAL ORD ERABLES Final Result [facility] [address] [place] [address] [phone] documented in this encounter Visit Diagnoses Diagnosis Vaginal itching- Primary Pruritus of genital organs Vaginal discharge Leukorrhea, not specified as infective documented in this encounter Additional Health Concerns Assessment Noted Time PHQ-9 Depression Total Score: 19 024 10:47 AM EST documented as of this encounter Care Teams Blood Or Blood Bank Technician Relationship Specialty Start Date End Date Ana Gruber ANP [address] [place] [address] PCP - General Family Medicine 05/23/21 Tabitha Altamirano Enterprise Project ManagerAsphalt Dauber 12/28/23 Rhonda Rao Enterprise Project ManagerAsphalt Dauber 06/30/25 documented as of this encounter
[2025-07-25 14:36] LABS: Bacterial Vaginosis PCR NEGATIVE (Negative); Candida Group PCR NOT DETECTED (Not Detect); Candida glab krusei PCR NOT DETECTED (Not Detect); Trichomonas vaginalis PCR NOT DETECTED (Not Detect)
--- OUTSIDE RECORDS SUMMARY | 2025-07-25 15:22 | XMS_ITS | Encounter Summary ---
Author Organization [employer] Address [address] [facility] 7[address] [place] [address] Care Team Providers Care Fisher Name Role Phone Ana Gruber Primary Care Provider [phone] Reason for Visit * Reason Onset Date Comments Nurse Triage 10/12/2024 Encounter Details Date Type Department Care Team ([facility] st Contact Info) Description 10/12/2024 Telephone [facility] [address] [place] [address] Ana Gruber ANP [address] [place] [address] Nurse Triage Social History Tobacco Use Types [...] Description 09/14/2025 11:15 AM EST Office Visit [facility] [address] [place] [address] Verena Laureano CNM [address] [place] [address] documented as of this encounter Visit Diagnoses Not on filedocumented in this encounter Additional Health Concerns Assessment Noted Time PHQ-9 Depression Total Score: 19 024 10:47 AM EST documented as of this encounter Care Teams Fisher Relationship Specialty Start Date End Date Ana Gruber ANP [address] [place] [address] PCP - General Family Medicine 05/23/21 Tabitha Altamirano Print [employer] StenographerMixing Place Supervisor 12/28/23 Rhonda Rao [employer] Sten[employer]ing Place Supervisor 06/30/25 documented as of this encounter
--- OUTSIDE RECORDS SUMMARY | 2025-07-25 15:22 | XMS_ITS | Encounter Summary ---
Author Organization [facility] Address [address] [address] Phone Care Team Providers Care Bellows Filler Name Role Phone Ana Gruber NP Primary Care Provider [phone] Reason for Visit * Reason Comments Med Refill Encounter Details Date Type Department Care Team (Late st Contact Info) Description 08/04/2024 Refill [facility] [address] [place] [address] Haroon Ramos MD [address] [address] Social History Tobacco Use Types [...] Office Visit [facility] [address] [facility] [place] [address] Haroon Ramos MD [address] [address] documented as of this encounter Visit Diagnoses Not on filedocumented in this encounter Care Teams Bellows Filler Relationship Specialty Start Date End Date Ana Gruber NP [address] [place] [phone] PCP - General Nurse Practitioner 05/17/24 documented as of this encounter
--- OUTSIDE RECORDS SUMMARY | 2025-07-25 15:22 | XMS_ITS | Encounter Summary ---
Author Organization [facility] Address [address] [address] Phone Care Team Providers Care Hardboard Panel Printer Name Role Phone Ana Gruber NP Primary Care Provider [phone] Reason for Visit * Reason Comments Med Refill Encounter Details Date Type Department Care Team (Late st Contact Info) Description 09/07/2024 Refill [facility] [address] [place] [address] Haroon Ramos MD [address] [address] Social History Tobacco Use Types [...] Office Visit [facility] [address] [place] [address] Haroon Ramos MD [address] [address] documented as of this encounter Visit Diagnoses Not on filedocumented in this encounter Care Teams Hardboard Panel Printer Relationship Specialty Start Date End Date Ana Gruber NP [address] [place] [id number] PCP - General Nurse Practitioner 05/17/24 documented as of this encounter
--- OUTSIDE RECORDS SUMMARY | 2025-07-25 15:22 | XMS_ITS | Clinical Summary ---
Author Organization [facility] Address [address] [place] [address] [place] [address] Phone Care Team Providers Care Manufacturing Development Engineer Name Role Phone Allyn Ana Donnelly NP Primary Care Provider [phone] Allergies Active Allergy Reactions Criticality Noted Date [...] Refill [facility] the [address] [place] [address] Haroon Ramos MD 07/10/2025 Refill [facility] [address] [address] Haroon Ramos MD 07/07/2025 Refill [facility] [address] [place] [address] Haroon Ramos MD from Last 3 Months [...] Visit [facility] [address] [place] [address] [place] [address] Haroon Ramos MD [address] [facility] [address] [place] [address] Health Maintenance Due Date Last Done Comments Breast Cancer Screening 1970 Hepatitis B Vaccine (1 of 3 - 19+ 3-dose series) 1988 10/12/2023, 05/04/2023, 04/06/2023 Pneumococcal Vaccine: 50+ Ye ars (1 of 2 - PCV) 1988 Colorectal Cancer Screening: Annual FOBT 2018 Colorectal Cancer Screening: Colonoscopy 2018 Colorectal Cancer Screening: Sigmoidoscopy 2018 Influenza Vaccine (#1) 2025 [place] Care Teams Manufacturing Development Engineer Relationship Specialty Start Date End Date Ana Gruber NP [address] [place] [address] PCP - General Nurse Practitioner 05/17/24
--- OUTSIDE RECORDS SUMMARY | 2025-07-25 15:22 | XMS_ITS | Clinical Summary ---
Author Organization [facility] Address [address] [place] [address] Care Team Providers Care Pier Hand Name Role Phone Unavailable Primary Care [...]
--- OUTSIDE RECORDS SUMMARY | 2025-07-25 15:23 | XMS_ITS | Clinical Summary ---
Author Organization [employer] Address [address] [facility] 7t [place] [address] Care Team Providers Care Arrt Technologist Name Role Phone Malu Oneil JESSICA Primary Care Provider [phone] Allergies Active Allergy Reactions Criticality Noted Date Comments Apple Juice 10/14/2019 Black Cgolud-Lholsuyvvj-C Quad 04/27/2025 Grape Seed 10/14/2019 Latex Rash [...] currently on medication prescribed by psychiatry at [facility]. Lack of social support is identified as barrier. Explored coping strategies that she can use and practice breathing exercises during session. clinician engaged pt with active/reflective listening. Provided a safe space for patient to share her emotions and fears. Reviewed and assessed for risk, current stressors and protective factors using open-ended questions. Provided [facility] number and crisis contact information. Intake forms completed with [facility] today. Patient will see a therapist [...] will benefit from options: 1-Discuss concerns with [facility] therapist and request he make a referral for [facility] psychological evaluation, 2- Contact [facility] and [facility] at [phone] to schedule an evaluation. At this time Ayla Evans meets criteria for Visit Diagnoses: Problem List Items Addressed This Visit Other Major depressive disorder, recurrent ([facility]/HCC) Patient ready to address current needs Yes Strengths include- Ayla is connected to care management and OP therapy for supports PLAN: 1. Follow up with [facility]: Recommended for follow-up: as needed. Contact information was shared 2. Patient goal is to participate in psychological testing 3. Behavioral Recommendations a. Discuss concerns with [facility] therapist and request he make a referral for [facility] psychological evaluation b. Contact [facility] and [facility] at [phone] to schedule an evaluation. 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 Non compliant Encounters Date Type Department Care Team Description 07/24/2025 5:40 PM EDT Office Visit [facility] [address] [place] [address] Darlyn Kat FNP Vaginal itching (Primary Dx); Vaginal discharge 07/24/2025 Travel 07/13/2025 Orders Only GENERIC EXTERNAL DATA DEPARTMENT Provider, Generic External Data 07/10/[address] [address] Malu Oneil ANP Appointment Request 07/10/2025 Travel 06/30/2025 Telephone [facility] [address] [place] [address] Cat Badillo Care Coordination (ICP BH Care Plan) 06/27/2025 Telephone [facility] [address] [address] Joan Burns [place] 05/26/2025 Results Follow-Up [address] [address] Malu Oneil ANP US Pelvis Limited 05/26/2025 Orders Only [address] [address] Malu Oneil ANP RLQ abdominal pain (Primary Dx) 05/24/2025 4:00 PM EDT Office Visit [facility] [address] [place] [address] Malu Oneil ANP RLQ abdominal pain (Primary Dx); Right inguinal hernia; Hypertensive urgency 05/24/2025 Telephone [facility] [address] [address] Malu Oneil ANP us appt 05/24/2025 Travel 05/16/[address] [address] Malu Oneil ANP Referral 05/15/2025 Orders Only [address] [address] Malu Oneil ANP History of kyphoplasty (Primary Dx); Compression fracture of L1 lumbar vertebra, sequela; Compression fracture of L2 lumbar vertebra, sequela; Spinal stenosis of lumbar region, unspecified whether neurogenic claudication present 05/04/2025 Telephone [facility] [address] [place] [address] Malu Oneil ANP Referral 04/27/2025 9:00 AM EDT Office Visit [facility] [address] [place] [address] Jyoti Walls DO Acute bilateral low back pain with [...] oz) 07/24/2025 5:45 P M EDT Height 170.2 cm (5' 7 ) 05/24/2025 3:57 PM EDT Body Mass Index 30.48 05/24/2025 3:57 PM EDT Plan of Treatment Upcoming Encounters Date Type Department Care Team (Late st Contact Info) Description 09/14/2025 11:15 AM EST Office Visit [facility] [address] [place] [address] Violet Colon CNM [address] [place] [address] Health Maintenance Due Date Last Done Comments [...] 6:38 PM EDT Vaginal itching Vaginal discharge GROSS AND MICROSCOPIC LEVEL 3 Routine 07/13/2025 [...] Recently Relevant to Health Maintenance Results * POCT Urinalysis (07/24/2025 6:39 PM EDT) Only the most recent of2 resultswithin the time period is included. Color, UA Yellow Clarity, UA Clear Glucose, UA Negative Bilirubin, UA Negative Ketones, UA Negative Spec Grav, UA 1.020 Blood, UA Negative Negative, None Detected pH, UA 7.0 Protein, UA Negative Urobilinogen, UA 4.0 Leukocytes, UA Trace Negative, Rare, Trace Nitrite, UA Negative Negative, None Detected Appearance, UA yellow QC Media Lot # [id number] Lot# Expiration Date 47 Urine (Urine, Random) 07/24/2025 6:39 PM EDT [employer] ESTHETICIAN AND MANAGER MEDICAL SPA POINT OF CARE TEST ENTER/EDIT ORDERABLES Final Result * Bacterial Vaginosis Panel (07/24/2025 6:38 PM EDT) TRICHOMONAS VAGINALIS DETECTION BY PCR NOT DETECTED Not Detect [facility] BACTERIAL VAGINOSIS DETECTION BY PCR NEGATIVE Negative [facility] Comment:The BV organism targ ets [...] DETECTION BY PCR NOT DETECTED Not Detect [facility] Jess glab krusei PCR NOT DETECTED Not Detect [facility] Swab Vaginal structure / Unknown 07/24/2025 6:38 PM EDT 07/25/2025 1:31 PM EDT [employer] LAB MICROBIOLOGY - GENERAL ORD ERABLES Final Result [facility] [address] [place] [phone] * Gross and Microscopic Level 3 (07/13/2025 8:10 AM EDT) 07/13/2025 8:10 AM EDT 07/13/2025 10:30 AM EDT [facility] - 07/14/2025 5:03 PM EDT ----- ------- Name: Ronankyaw EvansAyla Age/Sex: 55/F : 1970 Unit#: [id number] Attend Dr: Stephane Yang MD Re07/13/25 Status: [facility] Location: [facility] Disch: ----- ------- SPEC : [id number] RECD: 07/13/25 STATUS: DIANE ABERNATHY NUM: [id number] LITA: 07/13/[address] [facility] [address]: Stephane Yang MD ENTERED: 07/13/25 SP [...] seen. No cysts or nodules are identified. Flight Service Agent sections are submitted for microscopic examination, 3 pieces in cassette A1. ([facility]) IHC S/NG Disclaimer NOTE: Unless otherwise stated, all tissue is formalin-fixed and paraffin-embedded. Some or all of the immunohistochemical tests reported herein may have been developed and their performance characteristics determined by [facility]. They have not been cleared or approved by the U.S. Food and Drug Administration (FDA). However, the FDA has determined that such clearance or approval is not necessary. This laboratory is certified under the Clinical Laboratory Improvement Amendments of 1988 (CLIA) as qualified to perform high complexity clinical laboratory testing. Copies To: Stephane Yang MD [facility] [address] [place] [phone] CONTINUED ON NEXT PAGE ----- ------- Name: Ayla Anderson Age/Sex: 55/F : 1970 Unit#: [id number] Attend Dr: Stephane Yang MD Re07/13/25 Status: [facility] Location: [facility] Disch: ----- ------- SPEC : [id number] RECD: 07/13/25 STATUS: DIANE ABERNATHY NUM: [id number] LITA: 07/13/[address] [facility] [address]: Stephane Yang MD ENTERED: 07/13/25-1055 SP TYPE: Surgical OTHR DR: MALU ONEIL NP ORDERED: Gross Micro L3 Copies To: (Continued) MALU ONEIL NP [address] [address] ----- ------- Signed (signature on file) Bentley Paredes MD 07/14/25 1703 ----- ------- END OF REPORT us Generic External Data Provider LAB CYTOLOGY STEFANY GUNN Final Result [facility] [address] [place] [address] [phone] * US Pelvis Limited (05/26/2025 8:58 AM EDT) Anatomical Region Laterality Modality Pelvis Ultrasound 05/26/2025 8:58 AM EDT Narrative 05/26/2025 9:00 AM EDT [address] [address] Ultrasound Report Signed Patient: Ayla Anderson MR#: [id number] : 1970 Acct:[id number] Age/Sex: 54 / F ADM Date: 05/25/25 Loc: HO.US Attending Dr: Malu Oneil NP Ordering Physician: MALU ONEIL NP Date of Service: 05/25/25 Procedure(s): US pelvic limited Accession Number(s): [id number] cc: MALU ONEIL NP CLINICAL HISTORY: r [...] in OV> 05/26/25858 DD/ 7 TD/TT: 05/26/25857 Casual Shoe Inspector: Procedure Note Donyeinterpreter, Image - 05/26/2025 [place] [address] Ultrasound Report Signed Patient: Ayla AndersonMR#: [id number] : 1970Acct:[id number] Age/Sex: 54 / FADM Date: 05/25/25 Loc: HO.US Attending Dr: Malu Oneil NP Ordering Physician: MALU ONEIL NP Date of Service: 05/25/25 Procedure(s): US pelvic limited Accession Number(s): [id number] cc: MALU ONEIL NP CLINICAL HISTORY: r [...] in OV> 05/26/2559 DD/ 7 TD/TT: 05/26/25857 Casual Shoe Inspector: us Malu Oneil ANP IMG US PROCEDURES Final Result * Pap Smear (09/14/2024 11:17 AM EST) Swab Cervix uteri structure / Unknown 09/14/2024 11:17 AM EST 09/15/2024 2:10 PM EST [facility] - 09/21/2024 10:54 AM EST ----- ------- Name: Ayla Anderson Age/Sex: 54/F : 1970 Unit#: [id number] Attend Dr: VIOLET COLON CNM Re09/14/24 Status: [facility] Disch: ----- ------- SPEC : [id number] RECD: 09/15/24-1409 STATUS: DIANE ABERNATHY NUM: [id number] LITA: 09/14/24-[address] [facility] [address]: VIOLET COLON CNM ENTERED: 09/15/24-1424 SP TYPE: Pap Smr [facility] DR: ORDERED: Pap Smear Interpretation Satisfactory for [...] CNM LAB CYTOLOGY ORDERABLES F inal Result [facility] [address] [place], [place] [phone] * HPV mRNA E6/E7 w/Reflex to HPV Genotypes 16, 18/45 (09/14/2024 12:00 AM EST) Historical Provider MD LAB CYTOLOGY ORDERABLES F inal Result * POCT HGB A1C (09/06/2024 10:31 AM EST) Hemoglobin A1C 6.0 4.0 - 6.0 % QC Media Lot # [id number] Lot# Expiration Date [id number] Blood 09/06/2024 10:3 1 AM EST us Malu Oneil ANP POINT OF CARE TEST ENTER/EDIT OR DERABLES Final Result * BI Mammogram Screening Tomosynthesis Bilateral (04/22/2024 12:55 PM EDT) Anatomical Region Laterality Modality Breast Bilateral Mammography 04/22/2024 12:5 5 PM EDT Narrative 05/17/2024 2:55 PM EDT [address] [address] Mammography Report Signed Patient: Ayla Interiano MR#: [id number] : 1970 Acct:[id number] Age/Sex: 53 / F ADM Date: 04/22/24 Loc: HO.US Attending Dr: Malu Oneil NP Ordering Physician: MALU ONEIL NP Results: 1Negative Date of Service: 04/22/24 Follow Up: 1 Year From Orig inal Mammogram Procedure(s): MM tomosynthesis screening BI Accession Number(s): [id number] cc: MALU ONEIL NP EXAMINATION: MM SCREENING [...] in OV> 05/17/24 1450 DD/ 1255 TD/TT: Casual Shoe Inspector: Procedure Note Donotuseinterpreter, Image - 05/17/2024 [facility] [address] [place] [address] Mammography Report Signed Patient: Ayla InterianoMR#: [id number] : 1970Acct:[id number] Age/Sex: 53 / FADM Date: 04/22/24 Loc: HO.US Attending Dr: Malu Oneil SALES ENGINEERING MANAGER Ordering Physician: MALU ONEIL NPResults: 1Negative Date of Service: 04/22/24Follow Up: 1 Year From Orig inal Mammogram Procedure(s): MM tomosynthesis screening BI Accession Number(s): [id number] cc: MALU ONEIL NP EXAMINATION: MM SCREENING [...] in OV> 05/17/24 1450 DD/ 1255 TD/TT: Casual Shoe Inspector: Malu Oneil ANP IMG BI PROCEDURES Final Result * Colonoscopy (04/14/2023) [facility] Colonoscopy Normal Normal Narrative Glendy Dunn - 04/14/2023 Colonoscopy order added Historical Provider HEALTH MAINTENANCE Final Result * (ABNORMAL) Lipid Panel, Standard (04/06/2023 12:58 PM EDT) [facility] Cholesterol, Total 268(H) <200 mg/dL [facility] [employer] [place] HDL Cholesterol 67 > OR = 50 mg/dL [facility] [employer] [place] Triglycerides 136 <150 mg/dL [employer] [place] LDL Cholesterol 174(H) mg/dL (calc) [facility] Comment: Reference range: <100 Desirable range <100 mg/dL for primary prevention; <70 mg/dL for patients with CHD or diabetic patients with > or = 2 CHD risk factors. LDL-C is now calculated using the Emmie calculation, which is a validated novel method providing better accuracy than the Friedewald equation in the estimation of LDL-C. Dominic HUFF et al. WALT. 2013;310(19): 2652-9386 (http://Jobydu.c-crowd/faq/ZYT986) Chol/HDLC Ratio 4.0 <5.0 (calc) [facility] Non-HDL Cholesterol 201(H) <130 mg/dL (calc) [facility]pert Comment: For patients with diabetes plus 1 major ASCVD risk factor, treating to a non-HDL-C goal of <100 mg/dL (LDL-C of <70 mg/dL) is considered a therapeutic option. Blood Venous blood specimen / Unknown 04/06/2023 12:58 PM EDT 04/06/2023 12:59 PM EDT Narrative [facility] - 04/10/2023 12:19 PM EDT FASTING:NO FASTING: NO [facility] LAB BLOOD ORDERABLES Final Resul t [facility] [address], [place] [address] [employer] [place] [address] [place] [address] * HEPATITIS C AB W/REFL TO HCV RNA, QN, PCR (07/18/2020 3:25 PM EDT) HEPATITIS C ANTIBODY NON-REACT [facility] NON-REACT [facility] INDEX 0.03 <1.00 [facility] Comment: HCV antibody was non-reactive. There is no laboratory evidence of HCV infection. In most cases, no further action is required. However, if recent HCV exposure is suspected, a test for HCV RNA (test code 76282) is suggested. For additional information please refer to http://education.Scribz/faq/YEE54k3 (This link is being provided for informational/ educational purposes only.) HEPATITIS C ANTIBODY NON-REACT [facility] NON-REACT [facility] INDEX 0.03 <1.00 [facility] Comment: HCV antibody was non-reactive. There is no laboratory evidence of HCV infection. In most cases, no further action is required. However, if recent HCV exposure is suspected, a test for HCV RNA (test code 85745) is suggested. For additional information please refer to http://Dr Lal PathLabs/faq/YNJ36k1 (This link is being provided for informational/ educational purposes only.) HEPATITIS C ANTIBODY NON-REACT [facility]O NON-REACT [facility] INDEX 0.03 <1.00 [facility] Comment: HCV antibody was non-reactive. There is no laboratory evidence of HCV infection. In most cases, no further action is required. However, if recent HCV exposure is suspected, a test for HCV RNA (test code 26446) is suggested. For additional information please refer to http://Dr Lal PathLabs/faq/TUA56x2 (This link is being provided for informational/ educational purposes only.) HEPATITIS C ANTIBODY NON-REACT [facility] NON-REACT [facility] INDEX 0.03 <1.00 [facility] Comment: HCV antibody was non-reactive. There is no laboratory evidence of HCV infection. In most cases, no further action is required. However, if recent HCV exposure is suspected, a test for HCV RNA (test code 50039) is suggested. For additional information please refer to http://Dr Lal PathLabs/faq/YND46l2 (This link is being provided for informational/ educational purposes only.) HEPATITIS C ANTIBODY NON-REACT [facility]O NON-REACT [facility] INDEX 0.03 <1.00 [facility] Comment: HCV antibody was non-reactive. There is no laboratory evidence of HCV infection. In most cases, no further action is required. However, if recent HCV exposure is suspected, a test for HCV RNA (test code 44679) is suggested. For additional information please refer to http://Jobydu.Scribz/faq/LBO75r3 (This link is being provided for informational/ educational purposes only.) 07/18/2020 3:25 PM EDT Historical Provider HISTORICAL/NON ORDERABLE LABS Final Result Performing Organization Address [facility] Phone Number [facility] [address] * HIV AB/AG (10/17/2019 11:40 AM [...] of detection of this assay. The Das Senior Oracle Database Administrator HIV Ag/Ab Combo assay result and supplemental assay results should be interpreted in conjunction with the patient's clinical presentation, history and other laboratory results. If the results are inconsistent with clinical evidence, additional testing is suggested to confirm the result. 10/17/2019 11:4 0 AM EST Historical Provider HISTORICAL/NON ORDERABLE LABS Final Result Performing Organization Address [facility] Phone Number [facility] [address] from Last 3 Months or Most Recently Relevant to Health Maintenance [facility] Care Teams Arrt Technologist Relationship Specialty Start Date End Date Malu Oneil ANP [address] [place] [address] PCP - General Family Medicine 05/23/21 Tabitha Altamirano Power Switchboard OperatorRoofing Apprentice 12/28/23 Rhonda Rao Power Switchboard OperatorRoofing Apprentice 06/30/25
--- OUTSIDE RECORDS SUMMARY | 2025-07-25 15:23 | XMS_ITS | Encounter Summary ---
Author Organization [facility] Address [address] [address] Phone Care Team Providers Care Leather Lacer Name Role Phone Ana Gruber NP Primary Care Provider [phone] Reason for Visit * Reason Comments Med Refill Encounter Details Date Type Department Care Team (Late st Contact Info) Description 07/23/2025 Refill [facility] [address] [place] [address] Haroon Ramos MD [address] [address] Social History Tobacco Use Types [...] Office Visit [facility] [address] [place] [address] Haroon Ramos MD [address] [address] documented as of this encounter Visit Diagnoses Not on filedocumented in this encounter Care Teams Leather Lacer Relationship Specialty Start Date End Date Ana Gruber NP [address] [place] [address] PCP - General Nurse Practitioner 05/17/24 documented as of this encounter
--- OUTSIDE RECORDS SUMMARY | 2025-07-25 15:23 | XMS_ITS | Encounter Summary ---
Author Organization [facility] Address [address] [address] Phone Care Team Providers Care Grain Sampler Name Role Phone Ana Gruber NP Primary Care Provider [phone] Reason for Visit * Reason Comments Med Refill Encounter Details Date Type Department Care Team (Late st Contact Info) Description 07/07/2025 Refill [facility] [address] [place] [address] Haroon Ramos MD [address] [address] Social History Tobacco Use Types [...] Office Visit [facility] [address] [place] [place] [address] Haroon Ramos MD [address] [address] documented as of this encounter Visit Diagnoses Not on filedocumented in this encounter Care Teams Grain Sampler Relationship Specialty Start Date End Date Ana Gruber NP [address] [place] [address] PCP - General Nurse Practitioner 05/17/24 documented as of this encounter
--- OUTSIDE RECORDS SUMMARY | 2025-07-25 15:23 | XMS_ITS | Encounter Summary ---
Author Organization [employer] Address [address] [facility] 7t [place] [address] Care Team Providers Care Glass Installer Name Role Phone Ana Gruber JESSICA Primary Care Provider [phone] Encounter Details Date Type Department Care Team [...] Description 09/14/2025 11:15 AM EST Office Visit [facility] [address] [place] [address] Verena Laureano CNM [address] [place] [address] documented as of this encounter Visit Diagnoses Not on filedocumented in this encounter Additional Health Concerns Assessment Noted Time PHQ-9 Depression Total Score: 19 024 10:47 AM EST documented as of this encounter Care Teams Glass Installer Relationship Specialty Start Date End Date Ana Gruber ANP [address] [place] [address] PCP - General Family Medicine 05/23/21 Tabitha Altamirano Access Database DeveloperManager Oracle 12/28/23 Rhonda Rao Access Database DeveloperManager Oracle 06/30/25 documented as of this encounter
--- OUTSIDE RECORDS SUMMARY | 2025-07-25 15:23 | XMS_ITS | Encounter Summary ---
Author Organization [employer] Address [address] [facility] [address] [place] [address] Care Team Providers Care Vinyl Top Installer Name Role Phone Allyn Ana LOPEZ Primary Care Provider [phone] Encounter Details Date Type Department Care Team ([facility] st Contact Info) Description 01/31/2025 Orders Only [facility] [address] [place], [place] [phone] Glendy Dunn Social History Tobacco Use Types [...] Description 09/14/2025 11:15 AM EST Office Visit [facility] [address] [place] [address] Verena Laureano CNM [address] [place] [address] documented as of this encounter Procedures Procedure [...] documented as of this encounter Care Teams Vinyl Top Installer Relationship Specialty Start Date End Date Ana Gruber ANP [address] [place] [address] PCP - General Family Medicine 05/23/21 Tabitha Altamirano Barrel Lathe Operator InsideCook Specialty 12/28/23 Rhonda Rao Barrel Lathe Operator Inside[employer] Specialty 06/30/25 documented as of this encounter
--- OUTSIDE RECORDS SUMMARY | 2025-07-25 15:23 | XMS_ITS | Encounter Summary ---
Author Organization [employer] Address [address] [facility] 7t [place] [address] Care Team Providers Care Topper Press Operator Name Role Phone Ana Gruber Primary Care Provider [phone] Encounter Details Date Type Department Care Team (Anjelica estrada Contact Info) Description 05/26/2025 Results Follow-Up [facility] [address] [place] [address] Ana Gruber ANP [address] [place] [address] US Pelvis Limited Social History Tobacco Use [...] Description 09/14/2025 11:15 AM EST Office Visit [facility] [address] [place] [address] Verena Laureano CNM [address] [place] [address] documented as of this encounter Visit Diagnoses Not on filedocumented in this encounter Additional Health Concerns Assessment Noted Time PHQ-9 Depression Total Score: 19 024 10:47 AM EST documented as of this encounter Care Teams Topper Press Operator Relationship Specialty Start Date End Date Ana Gruber ANP [address] [place] [address] PCP - General Family Medicine 05/23/21 Tabitha Altamirano Immunology SpecialistService Control Operator 12/28/23 Rhonda Rao Immunology SpecialistService Control Operator 06/30/25 documented as of this encounter
== END 2025-07-24 12:00 | disposition home or self-care (01) ==
LOC: HO.HHCLNP 11:59
PROVIDERS: Visit Provider Nurse Practitioner Family
DX: N89.8 Other specified noninflammatory disorders of vagina (principal); Z20.2 Contact with and (suspected) exposure to infections with a predominantly sexual mode of transmission
CPT/HCPCS: 81515; 87086

== ENCOUNTER 2025-07-24 13:40 | Outpatient (REF) | payer MEDICAID, SELFPAY | END 2025-07-24 13:41 | disposition home or self-care (01) | LOC: HO.LNP 13:40 | PROVIDERS: PCP Nurse Practitioner Primary Care | DX: Z09 Encounter for follow-up examination after completed treatment for conditions other than malignant neoplasm (principal); R10.31 Right lower quadrant pain; Z98.890 Other specified postprocedural states; Z87.19 Personal history of other diseases of the digestive system | CPT/HCPCS: 99212 ==

== ENCOUNTER 2025-07-24 13:40 | Outpatient (AMB) | payer MEDICAID, SELFPAY ==
--- NOTE | 2025-07-24 13:42 | MHC.OFFVIS ---
Vital Signs 07/24/25 13:50 Weight 194 lb BP 145/73 H Blood Pressure Location Rt brachial Position Sitting Pulse 74 Intake Visit Reasons: s/p inguinal hernia surgery Intake Note: Patient here s/p Repair of right inguinal hernia with mesh. Patient c/o: pain at incision site. Taking rx pain meds as needed. Surgery (): 07-13-2025 Sales Office Administrator Required: No Accompanied by: Self / Same As Patient Allergies ondansetron (From Zofran) Allergy (Intermediate, Verified 07/24/25 13:49) Hives Penicillins (PENICILLINS) Allergy (Unknown, Verified 07/24/25 13:49) UNKNOWN latex Allergy (Mild, Uncoded 07/24/25 13:49) Rash HPI HPI s/p inguinal hernia surgery: Details: She is doing okay, struggling with some pain control. Has been using Tylenol and ibuprofen as needed, only using narcotics when absolutely necessary. She does feel like she is improving overall. She endorses pain at the incision site and feels like her stomach is hanging over causing more pain. Would like to use something like an abdominal binder to help with this. Additionally she had notes some swelling into her groin. Bowel function and appetite are at baseline. Denies fevers at home. Denies any bleeding or discharge from the incision site [facility] Medical History (Updated 07/13/25 @ 07:58 by Rebecca Gruber RN) HTN (hypertension) Urinary incontinence HLD (hyperlipidemia) Pre-diabetes Depression Migraine Asthma Hx of gastroesophageal reflux (GERD) Hx of herpes genitalis Elevated cholesterol Diverticulitis Surgical History (Updated 07/24/25 @ 15:09 by Angel Luis Ulrich PA-C) Hx of cholecystectomy History of subtotal thyroidectomy History of kyphoplasty Hx of fusion of cervical spine Hx of colonoscopy Hx of esophagogastroduodenoscopy Hx of partial thyroidectomy Hx of tubal ligation Family History Mother HTN (hypertension) Diabetes Father No problems noted. 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 No palpable fluid collection, no drainage, no erythema Inspection: No distended Palpation (GI): Soft to palpation and Tenderness to palpation present (GI) (Incision site ) Neuro General: patient oriented x3 Assessment & Plan Assessment & Plan (1) S/P inguinal hernia repair: Comment: Right, 07/13/[address] Wall Code(s): Z98.890 - Other specified postprocedural states; Z87.19 - Personal history of other diseases of the digestive system Category: Medical Plan 55-year-old female s/p right inguinal hernia repair with mesh on 07/[address] Wall returning to the office for routine follow up. She is doing okay, continues to have some pain at the incision site as well as some swelling extending into the groin. She feels that where her pants sit on the incision is causing her discomfort as well as her stomach hangover. We will send her a script for abdominal binder to use to assist with this. Her diet and bowel function are at baseline. Abdomen otherwise soft and benign. Incision site appears to be healing well, there was some deep induration which is likely postsurgical scarring. Recommended her to use a warm compress to to 3 times per day to up to soften this, this also may improve her swelling. Otherwise there was no erythema, drainage suggestive of infection. I recommended continuing bowel regimen to prevent constipation and straining with defecation. We will continue activity restrictions no heavy lifting greater than 15-20 lb until August 24. She is to follow up in 3 weeks or sooner as needed with any concerns or questions. Medications: New [Abdominal binder] As directed 1 ea 0RF K40.90 - Unilateral inguinal hernia, without obstruction or gangrene, not specified as recurrent Coding Level of Care Code Global (73297) Diagnoses S/P inguinal hernia repair Z98.890; Z87.19
[2025-07-24 13:50] VITALS: BP 145/73; PULSE 74
--- OUTSIDE RECORDS SUMMARY | 2025-07-24 16:50 | XMS_ITS | Clinical Summary ---
Author Organization [facility] Address [address] [place] [address] [place] [address] Phone Care Team Providers Care Political Scientist Name Role Phone Allyn Ana Donnelly NP Primary Care Provider [phone] Allergies Active Allergy Reactions Criticality Noted Date Comments Latex 08/20/2016 Metronidazole Other (see comments) 02/27/2023 Abdominal pain + N/V Penicillin G Rash High 07/07/2024 Penicillins Nausea 08/20/2016 Tuna Flavoring Agent (Non-Screening) Itching 04/06/2023 Medications albuterol (2.5 MG/3ML) 0.083% nebulizer solution Inhale 2.5 mg every 6 (six) hours if needed 11/15/19 19 Active albuterol HFA (PROVENTIL HFA;VENTOLIN HFA) 108 (90 Base) MCG/ACT inhaler Inhale 2 puffs every 4 (four) hours if needed for wheezing or shortness of breath 11/09/19 20 Active chlorthalidone 25 MG tablet Take 1 tablet by mouth 1 (one) time each day 04/12/20 24 Active diphenhydrAMIN E (BENADRYL) 25 MG tablet Take 25 mg by mouth every 6 (six) hours if needed for itching 05/02/20 24 Active SUMAtriptan (IMITREX) 50 MG tablet Take 100 mg by mouth 1 (one) time if needed for migraine 12/04/19 24 Active cyclobenzaprin e (FLEXERIL) 10 MG tablet Take 10 mg by mouth 2 (two) times a day if needed 01/08/20 19 Active chlorthalidone 25 MG tablet Take 1 tablet (25 mg total) by mouth 1 (one) time each day 30 tablet 11 07/07/20 24 Active Blood Pressure Monitoring (Omron 10 Series BP Monitor) device 1 Units 1 (one) time each day 1 each 07/07/20 24 Active losartan (Cozaar) 50 MG tablet Take 1 tablet (50 mg total) by mouth 1 (one) time each day 30 tablet 11 07/10/20 25 026 Active amLODIPine (NORVASC) 10 MG tablet TAKE 1 TABLET BY MOUTH 1 TIME EACH DAY. 90 tablet 3 07/23/20 25 Active losartan (Cozaar) 50 MG tablet Take 1 tablet (50 mg total) by mouth 1 (one) time each day 30 tablet 11 07/07/20 24 025 Discontinued(Re order (does not appear on AVS)) amLODIPine (NORVASC) 10 MG tablet Take 1 tablet (10 mg total) by mouth 1 (one) time each day 30 tablet 11 07/07/20 24 025 Discontinued Active Problems No known active problems Encounters Date Type Department Care Team Description 07/23/2025 Refill [facility] [address] [place] [address] Haroon Ramos MD 07/10/2025 Refill [facility] [address] [address] Haroon Ramos MD 07/07/2025 Refill [facility] [address] [place] [address] Haroon Ramos MD from Last 3 Months Social History Tobacco Use Types Packs/Day Years [...] Mass Index - - Plan of Treatment Upcoming Encounters Date Type Department Care Team (Late st Contact Info) Description 08/24/2025 3:30 PM EST Office Visit [facility] [address] [place] [place] [address] Haroon Ramos MD [address] [facility] [address] [place] [address] Health Maintenance Due Date Last Done Comments Breast Cancer Screening 1970 Hepatitis B Vaccine (1 of 3 - 19+ 3-dose series) 1988 10/12/2023, 05/04/2023, 04/06/2023 Pneumococcal Vaccine: 50+ Ye ars (1 of 2 - PCV) 1988 Colorectal Cancer Screening: Annual FOBT 2018 Colorectal Cancer Screening: Colonoscopy 2018 Colorectal Cancer Screening: Sigmoidoscopy 2018 Influenza Vaccine (#1) 2025 [place] Care Teams Political Scientist Relationship Specialty Start Date End Date Ana Gruber NP [address] [place] [address] PCP - General Nurse Practitioner 05/17/24
--- OUTSIDE RECORDS SUMMARY | 2025-07-24 16:50 | XMS_ITS | Encounter Summary ---
Author Organization [facility] Address [address] [address] Phone Care Team Providers Care Dispensing And Measuring Optician Name Role Phone Ana Gruber NP Primary Care Provider [phone] Reason for Visit * Reason Comments Med Refill Encounter Details Date Type Department Care Team (Late st Contact Info) Description 09/07/2024 Refill [facility] [address] [place] [address] Haroon Ramos MD [address] [address] Social History Tobacco Use Types [...] Office Visit [facility] [address] [place] [address] Haroon Ramos MD [address] [address] documented as of this encounter Visit Diagnoses Not on filedocumented in this encounter Care Teams Dispensing And Measuring Optician Relationship Specialty Start Date End Date Ana Gruber NP [address] [place] [phone] PCP - General Nurse Practitioner 05/17/24 documented as of this encounter
--- OUTSIDE RECORDS SUMMARY | 2025-07-24 16:51 | XMS_ITS | Encounter Summary ---
Author Organization [employer] Address [address] [facility] [place] [address] Care Team Providers Care Calker Name Role Phone Allyn Ana LOPEZ Primary Care Provider [phone] Encounter Details Date Type Department Care Team ([facility] st Contact Info) Description 01/31/2025 Orders Only [facility] [address] [place], [place] [id number] Glendy Dunn Social History Tobacco Use Types [...] Upcoming Encounters Date Type Department Care Team ([facility] st Contact Info) Description 07/24/2025 5:40 PM EDT Office Visit [facility] [address] [place] [phone] 09/14/2025 11:15 AM EST Office Visit [facility] [address] [place] [address] Verena Laureano CNM [address] [place] [phone] documented as of this encounter Procedures Procedure [...] documented as of this encounter Care Teams Calker Relationship Specialty Start Date End Date Ana Gruber ANP [address] [place] [phone] PCP - General Family Medicine 05/23/21 Tabitha Altamirano [employer] Testing Laboratory Technician 12/28/23 Rhonda Rao [employer] Testing Laboratory Technician 06/30/25 documented as of this encounter
--- OUTSIDE RECORDS SUMMARY | 2025-07-24 16:51 | XMS_ITS | Clinical Summary ---
Author Organization [facility] Address [address] [place] [address] Care Team Providers Care Barge Hand Name Role Phone Unavailable Primary Care Provider [...] of 2) 2019 COVID-19 Vaccine ( - 2024-2 6 season) 2025 Influenza (#1) 2025 DTaP/Tdap/Td (4 [...]
--- OUTSIDE RECORDS SUMMARY | 2025-07-24 16:51 | XMS_ITS | Encounter Summary ---
Author Organization [facility] Address [address] [address] Phone Care Team Providers Care Fraternity Adviser Name Role Phone Ana Gruber NP Primary Care Provider [phone] Reason for Visit * Reason Comments Med Refill Encounter Details Date Type Department Care Team (Late st Contact Info) Description 08/04/2024 Refill [facility] [address] [place] [address] Haroon Ramos MD [address] [address] Social History Tobacco Use Types [...] Office Visit [facility] [address] [place] [facility] [place] [address] Haroon Ramos MD [address] [address] documented as of this encounter Visit Diagnoses Not on filedocumented in this encounter Care Teams Fraternity Adviser Relationship Specialty Start Date End Date Ana Gruber NP [address] [place] [phone] PCP - General Nurse Practitioner 05/17/24 documented as of this encounter
--- OUTSIDE RECORDS SUMMARY | 2025-07-24 16:51 | XMS_ITS | Encounter Summary ---
Author Organization [facility] Address [address] [address] Phone Care Team Providers Care Private Investigator Name Role Phone Ana Gruber NP Primary Care Provider [phone] Reason for Visit * Reason Comments Med Refill Encounter Details Date Type Department Care Team (Late st Contact Info) Description 07/23/2025 Refill [facility] [address] [place] [address] Haroon Ramos MD [address] [address] Social History Tobacco Use Types [...] Office Visit [facility] [address] [place] [facility] [place] [address] Haroon Ramos MD [address] [address] documented as of this encounter Visit Diagnoses Not on filedocumented in this encounter Care Teams Private Investigator Relationship Specialty Start Date End Date Ana Gruber NP [address] [place] [phone] PCP - General Nurse Practitioner 05/17/24 documented as of this encounter
--- OUTSIDE RECORDS SUMMARY | 2025-07-24 16:51 | XMS_ITS | Clinical Summary ---
Author Organization [employer] Address [address] [facility] 7t [place] [address] Care Team Providers Care Usability Strategist Name Role Phone Malu Oneil JESSICA Primary Care Provider [phone] Allergies Active Allergy Reactions Criticality Noted Date Comments Apple Juice 10/14/2019 Black Zhjftg-Pnwatmknmh-V Quad 04/27/2025 Grape Seed 10/14/2019 Latex Rash [...] by mouth Once per day. 4 Active clotrimazole (Lotrimin) 1 % creamIndications: Rash [...] by mouth Once per day. 4 Active gabapentin (Neurontin) 300 MG capsule Take [...] currently on medication prescribed by psychiatry at [facility]. Lack of social support is identified as barrier. Explored coping strategies that she can use and practice breathing exercises during session. clinician engaged pt with active/reflective listening. Provided a safe space for patient to share her emotions and fears. Reviewed and assessed for risk, current stressors and protective factors using open-ended questions. Provided [facility] number and crisis contact information. Intake forms completed with [facility] today. Patient will see a therapist within [...] will benefit from options: 1-Discuss concerns with [facility] therapist and request he make a referral for [facility] psychological evaluation, 2- Contact [facility] at [phone] to schedule an evaluation. At this time Ayla Evans meets criteria for Visit Diagnoses: Problem List Items Addressed This Visit Other Major depressive disorder, recurrent ([facility]) Patient ready to address current needs Yes Strengths include- Ayla is connected to care management and OP therapy for supports PLAN: 1. Follow up with [facility]: Recommended for follow-up: as needed. Contact information was shared 2. Patient goal is to participate in psychological testing 3. Behavioral Recommendations a. Discuss concerns with [facility] therapist and request he make a referral for [facility] psychological evaluation b. Contact [facility] at [phone] to schedule an evaluation. 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 Non compliant Encounters Date Type Department Care Team Description 07/24/2025 Travel 07/13/2025 Orders Only GENERIC EXTERNAL DATA DEPARTMENT Provider, Generic External Data 07/10/[address] [address] Malu Oneil ANP Appointment Request 07/10/2025 Travel 06/30/2025 Telephone [facility] [address] [place] [address] Cat Badillo Care Coordination (ICP Care Plan) 06/27/2025 Telephone [facility] [address] [place] [address] Joan Burns MA 05/26/2025 Results Follow-Up [address] [address] Malu Oneil ANP US Pelvis Limited 05/26/2025 Orders Only [address] [address] Malu Oneil ANP RLQ abdominal pain (Primary Dx) 05/24/2025 4:00 PM EDT Office Visit [facility] [address] [place] [address] Malu Oneil ANP RLQ abdominal pain (Primary Dx); Right inguinal hernia; Hypertensive urgency 05/24/2025 Telephone [facility] [address] [place] [address] Malu Oneil ANP appt 05/24/2025 Travel 05/16/[address] [address] Malu Oneil ANP Referral 05/15/2025 Orders Only [address] [address] Malu Oneil ANP History of kyphoplasty (Primary Dx); Compression fracture of L1 lumbar vertebra, sequela; Compression fracture of L2 lumbar vertebra, sequela; Spinal stenosis of lumbar region, unspecified whether neurogenic claudication present 05/04/[address] [address] Malu Oneil, ANP Referral 04/27/2025 9:00 AM EDT Office Visit [facility] [address] [place] [address] Jyoti Walls, Acute bilateral low back pain with bilateral [...] Care Team (Late st Contact Info) Description 07/24/2025 5:40 PM EDT Office Visit [facility] [address] [place] [address] 09/14/2025 11:15 AM EST Office Visit [facility] MEDICINE [address] [place] [address] Violet Colon, JERRY [address] [place] [address] Health Maintenance Due Date Last Done Comments [...] Procedure Name Priority Date/Time Associated Diagnosis Comments GROSS AND MICROSCOPIC LEVEL 3 Routine 07/13/2025 8:10 AM EDT US PELVIS LIMITED Urgent 05/26/2025 8:5 8 [...] Recently Relevant to Health Maintenance Results * Gross and Microscopic Level 3 (07/13/2025 8:10 AM EDT) 07/13/2025 8:10 AM EDT 07/13/2025 10:30 AM EDT [facility]S - 07/14/2025 5:03 PM EDT ----- ------- Name: Ayla Anderson Age/Sex: 55/F [facility] 1970 [id number] [id number] Attend Dr: Stephane Yang MD Re07/13/25 Status: [facility] Location: [facility] Disch: ----- ------- SPEC : [id number] RECD: 07/13/25 STATUS: DIANE ABERNATHY NUM: [id number] LITA: 07/13/[address] [facility] [address]: Stephane Yang MD ENTERED: 07/13/25 SP TYPE: Surgical OTHR DR: MALU ONEIL NP ORDERED: Gross Micro L3 Diagnosis Soft tissue, right inguinal region, excision: Mature lobulated adipose tissue consistent with lipoma; no atypia identified. Clinical History Unilateral inguinal hernia, without obstruction Microscopic Description Microscopic sections reviewed. Material Received Right side lipoma of cord Gross Description Received in formalin labeled right side lipoma of cord is an oval mass of yellow adipose tissue measuring 3.7 x 2.5 x 1.0 cm. The specimen is partially encapsulated by a paper thin transparent membrane. Sectioning reveals a smooth, moist homogeneous yellow cut surface with no gross evidence of fat necrosis seen. No cysts or nodules are identified. Digital Tech sections are submitted for microscopic examination, 3 pieces in cassette A1. ([facility]) IHC S/NG Disclaimer NOTE: Unless otherwise stated, all tissue is formalin-fixed and paraffin-embedded. Some or all of the immunohistochemical tests reported herein may have been developed and their performance characteristics determined by [facility]. They have not been cleared or approved by the U.S. Food and Drug Administration (FDA). However, the FDA has determined that such clearance or approval is not necessary. This laboratory is certified under the Clinical Laboratory Improvement Amendments of 1988 (CLIA) as qualified to perform high complexity clinical laboratory testing. Copies To: Stephane Yang MD [facility] General Surgeons [address] [place] [address] CONTINUED ON NEXT PAGE ----- ------- Name: Ayla Anderson Age/Sex: 55/F : 1970 Unit#: [id number] Attend Dr: Stephane Yang MD Re07/13/25 [place] [facility] Location: [facility] Disch: ----- ------- SPEC : [id number] RECD: 07/13/25 STATUS: DIANE ABERNATHY NUM: [id number] LITA: 07/13/[address] [facility] [address]: Stephane Yang MD ENTERED: 07/13/253 SP TYPE: Surgical OTHR DR: MALU ONEIL NP ORDERED: Gross Micro L3 Copies To: (Continued) MALU ONEIL NP [address] [address] ----- ------- Signed (signature on file) Bentley Paredes MD 07/14/25 1703 ----- ------- END OF REPORT us Generic External Data Provider LAB CYTOLOGY STEFANY GUNN Final Result Performing Organization Address City/State/[facility] Co de Phone Number [facility] [address] [place] [address] [phone] * US Pelvis Limited (05/26/2025 8:58 AM EDT) Anatomical Region Laterality Modality Pelvis Ultrasound 05/26/2025 8:58 AM EDT Narrative 05/26/2025 9:00 AM EDT [address] [address] Ultrasound Report Signed Patient: Ayla Anderson MR#: [id number] : 1970 Acct:[id number] Age/Sex: 54 / F ADM Date: 05/25/25 Loc: HO.US Attending Dr: Malu Oneil NP Ordering Physician: MALU ONEIL NP Date of Service: 05/25/25 Procedure(s): US pelvic limited Accession Number(s): [id number] cc: MALU ONEIL NP CLINICAL HISTORY: r [...] in OV> 05/26/25858 DD/ 7 TD/TT: 05/26/25857 Warehouse Analyst: Procedure Note Donotuseinterpreter, Image - 05/26/[address] [address] Ultrasound Report Signed Patient: Ayla AndersonMR#: [id number] : 1970Acct:[id number] Age/Sex: 54 / FADM Date: 05/25/25 Loc: .US Attending Dr: Malu Oneil NP Ordering Physician: MALU ONEIL NP Date of Service: 05/25/25 Procedure(s): US pelvic limited Accession Number(s): [id number] cc: MALU ONEIL NP CLINICAL HISTORY: r [...] signed by Renetta Andersen MD in OV> 05/26/2559 DD/ 7 TD/TT: 05/26/25857 Warehouse Analyst: us Malu Oneil ANP IMG US PROCEDURES Final Result * POCT Urinalysis (05/24/2025 4:17 PM EDT) Color, UA [place] Clarity, UA Clear Glucose, UA Negative Bilirubin, UA Negative Ketones, UA Negative Spec Grav, UA 1.020 Blood, UA Negative Negative, None Detected pH, UA 7.0 Protein, UA Trace Urobilinogen, UA 0.2 Leukocytes, UA Negative Negative, Rare, Trace Nitrite, UA Negative Negative, None Detected Appearance, UA clear QC Media Lot # [id number] Lot# Expiration Date Urine 05/24/2025 4:17 PM EDT [facility] POINT OF CARE TEST ENTER/EDIT OR DERABLES Final Result * Pap Smear (09/14/2024 11:17 AM EST) Swab Cervix uteri structure / Unknown 09/14/2024 11:17 AM EST 09/15/2024 2:10 PM EST Narrative [facility] - 09/21/2024 10:54 AM EST ----- ------- Name: Ayla Anderson Age/Sex: 54/F : 1970 Unit#: [id number] Attend Dr: VIOLET COLON CNM Re09/14/24 Status: DEP REF Location: [facility] Disch: ----- ------- SPEC : [id number] RECD: 09/15/24141 STATUS: DIANE ABERNATHY NUM: [id number] LITA: 09/14/24-[address]: VIOLET COLON CNM ENTERED: 09/15/24 [...] 1054 ----- ------- END OF REPORT Violet Colon CNM LAB CYTOLOGY ORDERABLES F inal Result [facility] [address] [place] [phone] * HPV mRNA E6/E7 w/Reflex to HPV Genotypes 16, 18/45 (09/14/2024 12:00 AM EST) [facility] Provider MD LAB CYTOLOGY ORDERABLES F inal Result * POCT HGB A1C (09/06/2024 10:31 AM EST) Hemoglobin A1C 6.0 4.0 - 6.0 % QC Media Lot # [id number] Lot# Expiration Date [id number] Blood 09/06/2024 10:3 1 AM EST [facility] POINT OF CARE TEST ENTER/EDIT OR DERABLES Final Result * BI Mammogram Screening Tomosynthesis Bilateral (04/22/2024 12:55 PM EDT) Anatomical Region Laterality Modality Breast Bilateral Mammography 04/22/2024 12:5 5 PM EDT Narrative 05/17/2024 2:55 PM EDT [address] [address] Mammography Report Signed Patient: Ayla Interiano MR#: [id number] : 1970 Acct:[id number] Age/Sex: 53 / F ADM Date: 04/22/24 Loc: . Attending Dr: Malu Oneil NP Ordering Physician: MALU ONEIL NP Results: 1Negative Date of Service: 04/22/24 Follow Up: 1 Year From Orig inal Mammogram Procedure(s): MM tomosynthesis screening BI Accession Number(s): [id number] cc: MALU ONEIL NP EXAMINATION: MM SCREENING [...] in OV> 05/17/24 1450 DD/ 1255 TD/TT: Warehouse Analyst: Procedure Note Donotuseinterpreter, Image - 05/17/[address] [place] [address] Mammography Report Signed Patient: Ayla InterianoMR#: [id number] : 1970Acct:[id number] Age/Sex: 53 / FADM Date: 04/22/24 Loc: HO. Attending Dr: Malu Oneil NP Ordering Physician: MALU ONEIL NPResults: 1Negative Date of Service: 04/22/24Follow Up: 1 Year From Orig inal Mammogram Procedure(s): MM tomosynthesis screening BI Accession Number(s): [id number] cc: MALU ONEIL NP EXAMINATION: MM SCREENING [...] in OV> 05/17/24 1450 DD/ 1255 TD/TT: Warehouse Analyst: Malu Oneil ANP IMG BI PROCEDURES Final Result * Colonoscopy (04/14/2023) Colonoscopy Normal Normal Narrative Glendy Dunn - 04/14/2023 Colonoscopy order added Historical Provider HEALTH MAINTENANCE Final Result * (ABNORMAL) Lipid Panel, Standard (04/06/2023 12:58 PM EDT) Cholesterol, Total 268(H) <200 mg/dL [facility] [employer] [facility] HDL Cholesterol 67 > OR = 50 mg/dL [email or web address] [facility] Triglycerides 136 <150 mg/dL [email or web address] LDL Cholesterol 174(H) mg/dL (calc) [email or web address] [facility] Comment: Reference range: <100 Desirable range <100 mg/dL for primary prevention; <70 mg/dL for patients with CHD or diabetic patients with > or = 2 CHD risk factors. LDL-C is now calculated using the Emmie calculation, which is a validated novel method providing better accuracy than the Friedewald equation in the estimation of LDL-C. Dominic SS et al. WALT. 2013;310(19): 5512-6914 (http://education.Cortus SA/faq/TNF157) Chol/HDLC Ratio 4.0 <5.0 (calc) [email or web address] Non-HDL Cholesterol 201(H) <130 mg/dL (calc) [email or web address] [place] [employer] [place] Comment: For patients with diabetes plus 1 major ASCVD risk factor, treating to a non-HDL-C goal of <100 mg/dL (LDL-C of <70 mg/dL) is considered a therapeutic option. Blood Venous blood specimen / Unknown 04/06/2023 12:58 PM EDT 04/06/2023 12:59 PM EDT Narrative [facility] - 04/10/2023 12:19 PM EDT FASTING:NO FASTING: NO [facility] LAB BLOOD ORDERABLES Final Resul t [facility] [address], [place] [address] [facility] [employer] [facility] [address] [place] [address] * HEPATITIS C AB W/REFL TO HCV RNA, QN, PCR (07/18/2020 3:25 PM EDT) [facility] HEPATITIS C ANTIBODY NON-REACT CARO NON-REACT CARO [facility] INDEX 0.03 <1.00 [facility] Comment: HCV antibody was non-reactive. There is no laboratory evidence of HCV infection. In most cases, no further action is required. However, if recent HCV exposure is suspected, a test for HCV RNA (test code 41568) is suggested. For additional information please refer to http://foodjunky.StatSocial/faq/LJR58h1 (This link is being provided for informational/ educational purposes only.) HEPATITIS C ANTIBODY NON-REACT CARO NON-REACT [facility] INDEX 0.03 <1.00 [facility] Comment: HCV antibody was non-reactive. There is no laboratory evidence of HCV infection. In most cases, no further action is required. However, if recent HCV exposure is suspected, a test for HCV RNA (test code 89552) is suggested. For additional information please refer to http://Bocom/faq/EPG75j4 (This link is being provided for informational/ educational purposes only.) HEPATITIS C ANTIBODY NON-REACT CARO NON-REACT [facility] INDEX 0.03 <1.00 [facility] Comment: HCV antibody was non-reactive. There is no laboratory evidence of HCV infection. In most cases, no further action is required. However, if recent HCV exposure is suspected, a test for HCV RNA (test code 54175) is suggested. For additional information please refer to http://Bocom/faq/ITP36d7 (This link is being provided for informational/ educational purposes only.) HEPATITIS C ANTIBODY NON-REACT CARO NON-REACT [facility]O [facility] INDEX 0.03 <1.00 [facility] Comment: HCV antibody was non-reactive. There is no laboratory evidence of HCV infection. In most cases, no further action is required. However, if recent HCV exposure is suspected, a test for HCV RNA (test code 86185) is suggested. For additional information please refer to http://foodjunky.StatSocial/faq/WVP32h4 (This link is being provided for informational/ educational purposes only.) HEPATITIS C ANTIBODY NON-REACT CARO NON-REACT CARO [facility] INDEX 0.03 <1.00 [facility] Comment: HCV antibody was non-reactive. There is no laboratory evidence of HCV infection. In most cases, no further action is required. However, if recent HCV exposure is suspected, a test for HCV RNA (test code 27256) is suggested. For additional information please refer to http://education.PoshVine.Yaphie/faq/VGH50s7 (This link is being provided for informational/ educational purposes only.) 07/18/2020 3:25 PM EDT Historical Provider HISTORICAL/NON ORDERABLE LABS Final Result Performing Organization Address [facility] Phone Number [facility] [address] * HIV AB/AG (10/17/2019 11:40 AM [...] of detection of this assay. The Das Computer Technical Specialist HIV Ag/Ab Combo assay result and supplemental assay results should be interpreted in conjunction with the patient's clinical presentation, history and other laboratory results. If the results are inconsistent with clinical evidence, additional testing is suggested to confirm the result. 10/17/2019 11:4 0 AM EST Historical Provider HISTORICAL/NON ORDERABLE LABS Final Result Performing Organization Address [facility] Phone Number [facility] [address] from Last 3 Months or Most Recently Relevant to Health Maintenance Insurance [facility] C3 Care Teams Usability Strategist Relationship Specialty Start Date End Date Malu Oneil ANP [address] [place] [address] PCP - General Family Medicine 05/23/21 Tabitha Altamirano Destaticizer FeederPower Plant Technician 12/28/23 Rhonda Rao Destaticizer FeederPower Plant Technician 06/30/25
--- OUTSIDE RECORDS SUMMARY | 2025-07-24 16:51 | XMS_ITS | Encounter Summary ---
Author Organization [facility] Address [address] [address] Phone Care Team Providers Care Zoo Veterinarian Name Role Phone Ana Gruber NP Primary Care Provider [phone] Reason for Visit * Reason Comments Med Refill Encounter Details Date Type Department Care Team (Late st Contact Info) Description 07/07/2025 Refill [facility] [address] [place] [address] Haroon Ramos MD [address] [address] Social History Tobacco Use Types [...] Office Visit [facility] [address] [place] [address] Haroon Ramos MD [address] [address] documented as of this encounter Visit Diagnoses Not on filedocumented in this encounter Care Teams Zoo Veterinarian Relationship Specialty Start Date End Date Ana Gruber NP [address] [place] [address] PCP - General Nurse Practitioner 05/17/24 documented as of this encounter
--- OUTSIDE RECORDS SUMMARY | 2025-07-24 16:51 | XMS_ITS | Encounter Summary ---
Author Organization [employer] Address [address] [facility] [address]t [place] [address] Care Team Providers Care Heel Seat Trimmer Name Role Phone Ana Gruber JESSICA Primary Care Provider [phone] Encounter Details Date Type Department Care Team (Latest Contact Info) Description 07/24/2025 Travel Social History Tobacco Use Types Packs/Day Years [...] Description 07/24/2025 5:40 PM EDT Office Visit [facility] [address] [place] [address] 09/14/2025 11:15 AM EST Office Visit [facility] [address] [place] [address] Verena Laureano CNM [address] [place] [address] documented as of this encounter Visit Diagnoses Not on filedocumented in this encounter Additional Health Concerns Assessment Noted Time PHQ-9 Depression Total Score: 19 024 10:47 AM EST documented as of this encounter Care Teams Heel Seat Trimmer Relationship Specialty Start Date End Date Ana Gruber ANP [address] [place] [address] PCP - General Family Medicine 05/23/21 Tabitha Altamirano Pocket And Pulley Machine OperatorWheel Molder 12/28/23 Rhonda Rao Pocket And Pulley Machine OperatorWheel Molder 06/30/25 documented as of this encounter
--- OUTSIDE RECORDS SUMMARY | 2025-07-24 16:51 | XMS_ITS | Encounter Summary ---
Author Organization [employer] Address [address] [facility] 7t [place] [address] Care Team Providers Care Manager Of Medical Name Role Phone Ana Gruber Primary Care Provider [phone] Reason for Visit * Reason Onset Date Comments Nurse Triage 10/12/2024 Encounter Details Date Type Department Care Team ([facility] st Contact Info) Description 10/12/[address] [facility] [address] [place] [address] Ana Gruber ANP [address] [place] [address] Nurse Triage Social History Tobacco Use Types [...] Description 07/24/2025 5:40 PM EDT Office Visit [facility] [address] [place] [address] 09/14/2025 11:15 AM EST Office Visit [facility] [address] [place] [address] Verena Laureano CNM [address] [place] [address] documented as of this encounter Visit Diagnoses Not on filedocumented in this encounter Additional Health Concerns Assessment Noted Time PHQ-9 Depression Total Score: 19 024 10:47 AM EST documented as of this encounter Care Teams Manager Of Medical Relationship Specialty Start Date End Date Ana Gruber ANP [address] [place] [address] PCP - General Family Medicine 05/23/21 Tabitha Altamirano Prosthetic Lab TechnicianBorder Police 12/28/23 Rhonda Rao Prosthetic Lab TechnicianBorder Police 06/30/25 documented as of this encounter
--- OUTSIDE RECORDS SUMMARY | 2025-07-24 16:51 | XMS_ITS | Encounter Summary ---
Author Organization [employer] Address [address] [facility] 7t [place] [address] Care Team Providers Care Concrete Rubber Name Role Phone Ana Gruber Primary Care Provider [phone] Encounter Details Date Type Department Care Team (Anjelica st Contact Info) Description 05/26/2025 Results Follow-Up [facility] [address] [place] [address] Ana Gruber ANP [address] [place] [address] US Pelvis Limited Social History Tobacco Use [...] 5:40 PM EDT Office Visit [facility] [address] [place] [address] 09/14/2025 11:15 AM EST Office Visit [facility] [address] [place] [address] Verena Laureano CNM [address] [place] [address] documented as of this encounter Visit Diagnoses Not on filedocumented in this encounter Additional Health Concerns Assessment Noted Time PHQ-9 Depression Total Score: 19 024 10:47 AM EST documented as of this encounter Care Teams Concrete Rubber Relationship Specialty Start Date End Date Ana Gruber ANP [address] [place] [address] PCP - General Family Medicine 05/23/21 Tabitha Altamirano Service CorrespondentSupervisor Tower 12/28/23 Rhonda Rao Service CorrespondentSupervisor Tower 06/30/25 documented as of this encounter
== END 2025-07-24 14:12 | disposition home or self-care (01) ==
LOC: HO.HGS 13:40
PROVIDERS: PCP Nurse Practitioner Primary Care
DX: Z98.890 Other specified postprocedural states (principal); Z87.19 Personal history of other diseases of the digestive system
CPT/HCPCS: 99024

== ENCOUNTER 2025-08-29 11:28 | Outpatient (AMB) | payer MEDICAID, SELFPAY ==
--- NOTE | 2025-08-29 11:33 | A.OFFVIS_ITS ---
Vital Signs 08/29/25 11:39 Height 5 ft 7 in Weight 192 lb BMI 30.1 Intake Visit Reasons: 3wk follow up s/p inguinal hernia surgery Intake Note: This patient presents for post-op assessment status post Repair of right inguinal hernia with mesh. (07/13/2025 ) Pt c/o; reports good appetite, reports occasional constipation. [employer] Required: No Accompanied by: Self / Same As Patient Allergies ondansetron (From Zofran) Allergy (Intermediate, Verified 08/29/25 11:39) Hives Penicillins (PENICILLINS) Allergy (Unknown, Verified 08/29/25 11:39) UNKNOWN latex Allergy (Mild, Uncoded 08/29/25 11:39) Rash HPI HPI 3wk follow up s/p inguinal hernia surgery: Details: Doing well, swelling and bulge have resolved. Does occasionally get some pain at the incision site. Has been continue to avoid heavy lifting. She has no concerns PFSH Medical History HTN (hypertension) Urinary incontinence HLD (hyperlipidemia) Pre-diabetes Depression Migraine Asthma Hx of gastroesophageal reflux (GERD) Hx of herpes genitalis Elevated cholesterol Diverticulitis Surgical History Hx of cholecystectomy History of subtotal thyroidectomy History of kyphoplasty Hx of fusion of cervical spine Hx of colonoscopy Hx of esophagogastroduodenoscopy Hx of partial thyroidectomy Hx of tubal ligation Family History Mother HTN (hypertension) Diabetes Father No problems noted. 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 No palpable fluid collection, no drainage, no erythema Inspection: No distended Palpation (GI): Soft to palpation and Tenderness to palpation present (GI) (Mildly tender to touch) Neuro General: patient oriented x3 Assessment & Plan Assessment & Plan (1) S/P inguinal hernia repair: Comment: Right, 07/13/[address] Wall Code(s): Z98.890 - Other specified postprocedural states; Z87.19 - Personal history of other diseases of the digestive system Category: Surgical Plan 55-year-old female s/p right inguinal hernia repair with mesh on 07/[address] Wall returning to the office for routine follow up. She is doing okay, reports the swelling that she was experiencing last visit has resolved. Some pain with certain movements but overall improving. Diet bowel function at baseline. Abdomen otherwise soft and benign. Incision site appears to be healing well, there was some deep induration which is likely postsurgical scarring. This has improved since last visit. Recommended her to continue to use a warm compress to to 3 times per day to up to soften this, this also may improve her swelling. Also okay to do some gentle massage. Otherwise there was no erythema, drainage suggestive of infection. At this point is okay to resume activity as tolerated. Recommended starting slow in working back up towards baseline. Not requiring follow up, can follow up as needed with any concerns or questions in the future. Coding Level of Care Code Global (91792) Diagnoses S/P inguinal hernia repair Z98.890; Z87.19
[2025-08-29 11:39] VITALS: BMI 30.1
--- OUTSIDE RECORDS SUMMARY | 2025-08-29 15:12 | XMS_ITS | Encounter Summary ---
Author Organization [facility] Address [address] [address] Phone Care Team Providers Care Genomics Scientist Name Role Phone Ana Gruber NP Primary Care Provider [phone] Reason for Visit * Reason Comments Med Refill Encounter Details Date Type Department Care Team (Late st Contact Info) Description 09/07/2024 Refill [facility] [address] [place] [address] Haroon Ramos MD [address] [address] Social History Tobacco Use Types [...] Care Team (Late st Contact Info) Description 10/26/2025 2:30 PM EST Office Visit [facility] [address] [place] [address] Haroon Ramos MD [address] [address] documented as of this encounter Visit Diagnoses Not on filedocumented in this encounter Care Teams Genomics Scientist Relationship Specialty Start Date End Date Ana Gruber NP [address] [place] [id number] PCP - General Nurse Practitioner 05/17/24 documented as of this encounter
--- OUTSIDE RECORDS SUMMARY | 2025-08-29 15:12 | XMS_ITS | Encounter Summary ---
Author Organization [employer] Address [address] [place] [address] Care Team Providers Care Tenter Frame Back Tender Name Role Phone Ana Gruber JESSICA Primary Care Provider [phone] Encounter Details Date Type Department Care Team ([facility] st Contact Info) Description 01/31/2025 Orders Only [facility] & PEDS [address] [place], [place] [id number] Glendy Dunn Social History Tobacco Use Types [...] Description 09/14/2025 11:15 AM EST Office Visit [facility] MEDICINE [address] [place] [address] Verena Laureano CNM [address] [place] [address] documented as of this encounter Procedures Procedure [...] documented as of this encounter Care Teams Tenter Frame Back Tender Relationship Specialty Start Date End Date Ana Gruber ANP [address] [place] [id number] PCP - General Family Medicine 05/23/21 Tabitha Altamirano Public Health NutritionistEngineering Group Leader 12/28/23 Rhonda Rao Public Health NutritionistEngineering Group Leader 06/30/25 documented as of this encounter
--- OUTSIDE RECORDS SUMMARY | 2025-08-29 15:12 | XMS_ITS | Clinical Summary ---
Author Organization [facility] Address [address] [place] [address] [place] [address] Phone Care Team Providers Care Direct Support Staff Member Name Role Phone Allyn Ana Donnelly NP Primary Care Provider [phone] Allergies Active Allergy Reactions Criticality Noted Date [...] times a day if needed 9 Active chlorthalidone 25 MG tablet Take 1 tablet (25 mg total) by mouth 1 (one) time each day 30 tablet 11 4 Active Blood Pressure Monitoring (Omron 10 Series BP Monitor) device 1 Units 1 (one) time each day 1 each 4 Active losartan (Cozaar) 50 MG tablet Take 1 tablet (50 mg total) by mouth 1 (one) time each day 30 tablet 11 5 07/10/20 26 Active amLODIPine (NORVASC) 10 MG tablet TAKE 1 TABLET BY MOUTH 1 TIME EACH DAY. 90 tablet 3 5 Active Active Problems Problem Noted Date Diagnosed Date Hyperthyroidism 08/21/2025 Essential hypertension 04/12/2024 Overview (08/21/2025): Start chlorthalidone 25mg, renal labs 2-4 weeks, RN visit 4 weeks for BP log review tele ok Elevated blood-pressure read ing without diagnosis of hypertension 02/26/2023 Prediabetes 02/26/2023 Diverticulitis 01/11/2018 Overview (08/21/2025): S/p colonoscopy 01/2018 Hyperlipidemia 10/24/2016 Overview (08/21/2025): LDL cholesterol 153, 08/27/2016. Bilateral myopia of eyes 04/24/2016 Vertigo 11/30/2015 Hypersomnia 02/23/2014 Asthma 12/08/2008 Disorder of function of stomach 12/08/2008 Encounters Date Type Department Care Team Description 07/23/2025 Refill [facility] [address] [place] [phone] Haroon Ramos MD 07/10/2025 Refill [facility] [address] [place] [address] Haroon Ramos MD 07/07/2025 Refill [facility] [address] [place] [address] Haroon Ramos MD from Last 3 Months [...] Visit [facility] [address] [place] [address] [place] [address] Haroon Ramos MD [address] [facility] [address] [place] [address] Health Maintenance Due Date Last [...] Insurance Medicaid [place] Medicaid [place] Care Teams Direct Support Staff Member Relationship Specialty Start Date End Date Ana Gruber NP [address] [place] [id number] PCP - General Nurse Practitioner 05/17/24
--- OUTSIDE RECORDS SUMMARY | 2025-08-29 15:12 | XMS_ITS | Encounter Summary ---
Author Organization [employer] Address [address] [facility] [address] [place] [address] Care Team Providers Care Dials Inspector Name Role Phone Ana Gruber Primary Care Provider [phone] Reason for Visit * Reason Onset Date Comments Nurse Triage 10/12/2024 Encounter Details Date Type Department Care Team ([facility] st Contact Info) Description 10/12/2024 Telephone [facility] MEDICINE [address] [place] [address] Ana Gruber ANP [address] [place] [address] Nurse Triage Social History Tobacco Use Types [...] Description 09/14/2025 11:15 AM EST Office Visit [facility] MEDICINE [address] [place] [address] Verena Laureano CNM [address] [place] [address] documented as of this encounter Visit Diagnoses Not on filedocumented in this encounter Additional Health Concerns Assessment Noted Time PHQ-9 Depression Total Score: 19 024 10:47 AM EST documented as of this encounter Care Teams Dials Inspector Relationship Specialty Start Date End Date Ana Gruber ANP [address] [place] [address] PCP - General Family Medicine 05/23/21 Tabitha Altamirano Scout ExecutiveDirector Surgical 12/28/23 Rhonda Rao Scout ExecutiveDirector Surgical 06/30/25 documented as of this encounter
--- OUTSIDE RECORDS SUMMARY | 2025-08-29 15:12 | XMS_ITS | Clinical Summary ---
Author Organization [facility] Address [address] [place] [address] Care Team Providers Care Carpet Loom Fixer Name Role Phone Unavailable Primary Care Provider [...] - Td or Tdap) 06/20/2031, 08/20/2016, 06/22/2009 RSV (1 - 1-dose 75+ series) 2044 HPV Vaccine (No Doses Required) Completed Hep A Aged Out No longer eligi ble based on patient's age to complete this topic Hib Aged Out No longer eligi ble based on patient's age to complete this topic Meningococcal ACWY Aged Out No longer eligible based on patient's age to complete this topic
--- OUTSIDE RECORDS SUMMARY | 2025-08-29 15:12 | XMS_ITS | Clinical Summary ---
Author Organization [employer] Address [address] [facility] [address] [place] [address] Care Team Providers Care Sales Agent Casualty Insurance Name Role Phone Malu Oneil JESSICA Primary Care Provider [phone] Allergies Active Allergy Reactions Criticality Noted Date Comments Apple Juice 10/14/2019 Black Hkafeo-Wyceluvzck-Y Quad 04/27/2025 Grape Seed 10/14/2019 Latex Rash [...] currently on medication prescribed by psychiatry at [facility]. Lack of social support is identified as barrier. Explored coping strategies that she can use and practice breathing exercises during session. clinician engaged pt with active/reflective listening. Provided a safe space for patient to share her emotions and fears. Reviewed and assessed for risk, current stressors and protective factors using open-ended questions. Provided [facility] number and crisis contact information. Intake forms completed with [facility] today. Patient will see a therapist [...] will benefit from options: 1-Discuss concerns with [facility] therapist and request he make a referral for [facility] psychological evaluation, 2- Contact [facility] and [facility] at [phone] to schedule an evaluation. At this time Ayla Evans meets criteria for Visit Diagnoses: Problem List Items Addressed This Visit Other Major depressive disorder, recurrent ([facility]/HCC) Patient ready to address current needs Yes Strengths include- Ayla is connected to care management and OP therapy for supports PLAN: 1. Follow up with [facility]: Recommended for follow-up: as needed. Contact information was shared 2. Patient goal is to participate in psychological testing 3. Behavioral Recommendations a. Discuss concerns with [facility] therapist and request he make a referral for [facility] psychological evaluation b. Contact [facility] and [facility] at [phone] to schedule an evaluation. 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 Non compliant Encounters Date Type Department Care Team Description 07/26/2025 Telephone [facility] [address] [place] [phone] Malu Oniel ANP 07/24/2025 5:40 PM EDT Office Visit [facility] [address] [place] [phone] Darlyn Kat FNP Vaginal itching (Primary Dx); Vaginal discharge; Xerosis cutis 07/24/2025 Travel 07/13/2025 Orders Only GENERIC EXTERNAL DATA DEPARTMENT Provider, Generic External Data 07/10/2025 Telephone [facility] [address] [place] [phone] Malu Oneil ANP Appointment Request 07/10/2025 Travel 06/30/2025 Telephone [facility] [address] [place] [address] Cat Badillo Care Coordination (ICP BH Care Plan) 06/27/2025 Telephone [facility] [address] [place] [phone] Joan Burns MA from Last 3 Months Immunizations Immunization Administration [...] Visit [facility] [address] [place] [address] Violet Colon, JERRY [address] [place] [address] Health Maintenance Due Date Last Done Comments CT Colonography 1969 FIT DNA/Cologuard 1970 FIT 1970 FOBT 1970 Sigmoidoscopy 1970 Disability Screening 1969 HIB Vaccines (1 of 1 - Risk 1-dose series) 09/06/1970 Meningococcal Vaccine (1 - Risk 2-dose series) 1971 Meningococcal B Vaccine (1 of 4 - Increased Risk) 1979 Alcohol/Substance Use Screening 1981 Pneumococcal Vaccine: 50+ Years (1 of 2 - PCV) 1988 RSV Patients and Patients Aged 60 years or older (1 - Risk 50-74 years 1-dose series) 2019 Zoster Vaccines (1 of 2) 2019 Depression Monitoring 03/07/2025 09/06/2024, 024 Mammogram 04/22/2025 04/22/2024, 0706/2024, 09/19/2022, Additional history exists COVID-19 Vaccine ( [...] 08/20/2016, 06/22/2009, Additional history exists Colonoscopy 04/14/2033 04/14/2023, 04/14/2023 Colorectal Cancer Screening 04/14/2033 HIV Screening Completed 10/17/2019 Hepatitis C Screening [...] 6:38 PM EDT Vaginal itching Vaginal discharge CULTURE, URINE, ROUTINE Routine 07/24/2025 12:00 AM EDT Vaginal itching GROSS AND MICROSCOPIC LEVEL 3 Routine 07/13/2025 8:10 AM EDT PAP SMEAR Routine 09/14/2024 11:17 AM EST [...] QN, PCR Routine 07/18/2020 3:25 PM EDT ALAYNA HISTORICAL HIV AB/AG Routine 10/17/2019 11:40 AM [...] Media Lot # [id number] Lot# Expiration Date 63 Urine (Urine, Random) 07/24/2025 6:39 PM EDT Darlyn Okhipo DINKEY DRIVER POINT OF CARE TEST ENTER/EDIT ORDERABLES Final Result * Bacterial Vaginosis Panel (07/24/2025 6:38 PM EDT) TRICHOMONAS VAGINALIS DETECTION BY PCR NOT DETECTED Not Detect [facility] BACTERIAL VAGINOSIS DETECTION BY PCR NEGATIVE Negative [facility] Comment:The BV organism targ ets of [...] DETECTION BY PCR NOT DETECTED Not Detect [facility] Jess glab krusei PCR NOT DETECTED Not Detect [facility] Swab Vaginal structure / Unknown 07/24/2025 6:38 PM EDT 07/25/2025 1:31 PM EDT Darlyn [facility] MICROBIOLOGY - GENERAL ORD ERABLES Final Result Performing Organization Address City/[facility]/ZIP Co de Phone Number [facility] [address] [place] [phone] * Urine Culture Routine (07/24/2025 12:00 AM EDT) Urine Urine specimen obtained by clean catch procedure / Unknown 07/24/2025 07/24/2025 Comment:[facility] - 07/26/2025 2:28 PM EDT Urine Culture Report Result Urine Culture < 10,000 cfu/ml Specimen Source: Urine clean catch [facility] MICROBIOLOGY - GENERAL ORD ERABLES Final Result Performing Organization Address City/[facility] [[email or web address]] Co de Phone Number [facility] [address] [place] [phone] * Gross and Microscopic Level 3 (07/13/2025 8:10 AM EDT) 07/13/2025 8:10 AM EDT 07/13/2025 10:30 AM EDT [facility] - 07/14/2025 5:03 PM EDT ----- ------- Name: Ayla Anderson Age/Sex: 55/F : 1970 Unit#: [id number] Attend Dr: Stephane Yang MD Re07/13/25 Status: [facility] Location: [facility] Disch: ----- ------- SPEC : [id number] RECD: 07/13/25 STATUS: DIANE ABERNATHY NUM: [id number] LITA: 07/13/25 [facility] DR: Stephane Yang MD ENTERED: [...] seen. No cysts or nodules are identified. Fig Washer sections are submitted for microscopic examination, 3 pieces in cassette A1. ([facility]) IHC S/NG Disclaimer NOTE: Unless otherwise stated, all tissue is formalin-fixed and paraffin-embedded. Some or all of the immunohistochemical tests reported herein may have been developed and their performance characteristics determined by [facility]. They have not been cleared or approved by the U.S. Food and Drug Administration (FDA). However, the FDA has determined that such clearance or approval is not necessary. This laboratory is certified under the Clinical Laboratory Improvement Amendments of 1988 (CLIA) as qualified to perform high complexity clinical laboratory testing. Copies To: Stephane Yang MD [facility] [address] [place] [phone] CONTINUED ON NEXT PAGE ----- ------- Name: Ayla Anderson Age/Sex: 55/F : 1970 Unit#: [id number] Attend Dr: Stephane Yang MD Re07/13/25 Status: [facility] Location: [facility] Disch: ----- ------- SPEC : [id number] RECD: 07/13/25 STATUS: DIANE ABERNATHY NUM: [id number] ILTA: 07/13/25 [facility] DR: Stephane Yang MD ENTERED: 07/13/25 SP TYPE: Surgical OTHR DR: MALU ONEIL NP ORDERED: Gross Micro L3 Copies To: (Continued) MALU ONEIL NP [address] [address] ----- ------- Signed (signature on file) Bentley Paredes MD 07/14/25 1703 ----- ------- END OF REPORT us Generic External Data Provider LAB CYTOLOGY STEFANY GUNN Final Result [facility] [address] [place] [phone] * Pap Smear (09/14/2024 11:17 AM EST) Swab Cervix uteri structure / Unknown 09/14/2024 11:17 AM EST 09/15/2024 2:10 PM EST Narrative [facility] - 09/21/2024 10:54 AM EST ----- ------- Name: Ayla Anderson Age/Sex: 54/F : 1970 Unit#: [id number] Attend Dr: VIOLET COLON CNM Re09/14/24 Status: DEP REF Location: HO.HHCLNP Disch: ----- ------- SPEC : [id number] RECD: 09/15/24-141 STATUS: DIANE ABERNATHY NUM: [id number] LITA: 09/14/24-[address]: VIOLET COLON CNM ENTERED: 09/15/24-6689 SP TYPE: Pap Smr ANGIE GLEZ: ORDERED: Pap Smear Interpretation Satisfactory for evaluation. [...] CNM LAB CYTOLOGY ORDERABLES F inal Result [address] [address] [phone] * HPV mRNA E6/E7 w/Reflex to HPV Genotypes 16, 18/45 (09/14/2024 12:00 AM EST) Historical Provider MD LAB CYTOLOGY ORDERABLES F inal Result * POCT HGB A1C (09/06/2024 10:31 AM EST) Hemoglobin A1C 6.0 4.0 - 6.0 % QC Media Lot # [id number] Lot# Expiration Date [id number] Blood 09/06/2024 10:3 1 AM EST Malu LOPEZ POINT OF CARE TEST ENTER/EDIT OR DERABLES Final Result * BI Mammogram Screening Tomosynthesis Bilateral (04/22/2024 12:55 PM EDT) Anatomical Region Laterality Modality Breast Bilateral Mammography 04/22/2024 12:5 5 PM EDT Narrative 05/17/2024 2:55 PM EDT [address] [address] Mammography Report Signed Patient: Ayla Interiano MR#: [id number] : 1970 Acct:[id number] Age/Sex: 53 / F ADM Date: 04/22/24 Loc: . Attending Dr: Malu Oneil NP Ordering Physician: MALU ONEIL NP Results: 1Negative Date of Service: 04/22/24 Follow Up: 1 Year From Orig inal Mammogram Procedure(s): MM tomosynthesis screening BI Accession Number(s): [id number] cc: MALU ONEIL NP EXAMINATION: MM SCREENING [...] in OV> 05/17/24 1450 DD/ 1255 TD/TT: Cloth Weigher: Procedure Note Donotenrico, Image - 05/17/[address] [address] Mammography Report Signed Patient: Ayla InterianoMR#: [id number] : 1970Acct:[id number] Age/Sex: 53 / FADM Date: 04/22/24 Loc: . Attending Dr: Malu Oneil L D RN Ordering Physician: MALU ONEIL NPResults: 1Negative Date of Service: 04/22/24Follow Up: 1 Year From Orig inal Mammogram Procedure(s): MM tomosynthesis screening BI Accession Number(s): [id number] cc: MALU ONEIL NP EXAMINATION: MM SCREENING [...] in OV> 05/17/24 1450 DD/ 1255 TD/TT: Cloth Weigher: Malu Oneil ANP IMG BI PROCEDURES Final Result * Hm Colonoscopy (04/14/2023) Colonoscopy Normal Normal Narrative Glendy Dunn - 04/14/2023 HM Colonoscopy order added Historical Provider HEALTH MAINTENANCE Final Result * (ABNORMAL) Lipid Panel, Standard (04/06/2023 12:58 PM EDT) Cholesterol, Total 268(H) <200 mg/dL [employer] [facility] HDL Cholesterol 67 > OR = 50 mg/dL [employer] [facility] Triglycerides 136 <150 mg/dL [employer] [facility] LDL Cholesterol 174(H) mg/dL (calc) [employer] [facility] Comment: Reference range: <100 Desirable range <100 mg/dL for primary prevention; <70 mg/dL for patients with CHD or diabetic patients with > or = 2 CHD risk factors. LDL-C is now calculated using the Emmie calculation, which is a validated novel method providing better accuracy than the Friedewald equation in the estimation of LDL-C. Dominic SS et al. WALT. 2013;310(19): 9250-0319 (http://education.LGL/LatinMedios/faq/QKO853) Chol/HDLC Ratio 4.0 <5.0 (calc) [employer] [facility] Non-HDL Cholesterol 201(H) <130 mg/dL (calc) [employer] [facility] Comment: For patients with diabetes plus 1 major ASCVD risk factor, treating to a non-HDL-C goal of <100 mg/dL (LDL-C of <70 mg/dL) is considered a therapeutic option. Blood Venous blood specimen / Unknown 04/06/2023 12:58 PM EDT 04/06/2023 12:59 PM EDT Narrative [facility] - 04/10/2023 12:19 PM EDT FASTING:NO FASTING: NO Malu LOPEZ LAB BLOOD ORDERABLES Final Resul t [facility] [address], [place] [address] [facility] [facility] [address] [place] [address] * HEPATITIS C AB W/REFL TO HCV RNA, QN, PCR (07/18/2020 3:25 PM EDT) HEPATITIS C ANTIBODY NON-REACT [facility] NON-[facility]ACT [facility] INDEX 0.03 <1.00 [facility] Comment: HCV antibody was non-reactive. There is no laboratory evidence of HCV infection. In most cases, no further action is required. However, if recent HCV exposure is suspected, a test for HCV RNA (test code 34371) is suggested. For additional information please refer to http://[employer]/faq/EID00q6 (This link is being provided for informational/ educational purposes only.) HEPATITIS C ANTIBODY NON-REACT [facility]O NON-REACT [facility] INDEX 0.03 <1.00 [email or web address] Comment: HCV antibody was non-reactive. There is no laboratory evidence of HCV infection. In most cases, no further action is required. However, if recent HCV exposure is suspected, a test for HCV RNA (test code 22080) is suggested. For additional information please refer to http://[employer]/faq/QWP65x8 (This link is being provided for informational/ educational purposes only.) HEPATITIS C ANTIBODY NON-REACT [facility]O NON-REACT [facility] INDEX 0.03 <1.00 [email or web address] Comment: HCV antibody was non-reactive. There is no laboratory evidence of HCV infection. In most cases, no further action is required. However, if recent HCV exposure is suspected, a test for HCV RNA (test code 26549) is suggested. For additional information please refer to http://[employer]/faq/MWY65t2 (This link is being provided for informational/ educational purposes only.) HEPATITIS C ANTIBODY NON-REACT [facility]O NON-REACT [facility]O [facility] INDEX 0.03 <1.00 [email or web address] Comment: HCV antibody was non-reactive. There is no laboratory evidence of HCV infection. In most cases, no further action is required. However, if recent HCV exposure is suspected, a test for HCV RNA (test code 30519) is suggested. For additional information please refer to http://[employer]/faq/MDX42b0 (This link is being provided for informational/ educational purposes only.) HEPATITIS C ANTIBODY NON-REACT CARO NON-REACT CARO [facility] INDEX 0.03 <1.00 [facility] Comment: HCV antibody was non-reactive. There is no laboratory evidence of HCV infection. In most cases, no further action is required. However, if recent HCV exposure is suspected, a test for HCV RNA (test code 98956) is suggested. For additional information please refer to http://[employer].com.Wenjuan.com/faq/UAV05m7 (This link is being provided for informational/ educational purposes only.) 07/18/2020 3:25 PM EDT Historical Provider HISTORICAL/NON ORDERABLE LABS Final Result Performing Organization Address [facility] [[email or web address]] Co de Phone Number [facility] [address] * HIV AB/AG (10/17/2019 11:40 AM [...] of detection of this assay. The [employer] HIV Ag/Ab Combo assay result and supplemental assay results should be interpreted in conjunction with the patient's clinical presentation, history and other laboratory results. If the results are inconsistent with clinical evidence, additional testing is suggested to confirm the result. 10/17/2019 11:4 0 AM EST Historical Provider HISTORICAL/NON ORDERABLE LABS Final Result Performing Organization Address [facility] [[email or web address]] Co de Phone Number [facility] [address] from Last 3 Months or Most Recently Relevant to Health Maintenance Insurance [facility] C3 Care Teams Sales Agent Casualty Insurance Relationship Specialty Start Date End Date Malu Oneil ANP [address] [place] [phone] PCP - General Family Medicine 05/23/21 Tabitha Altamirano Stain [employer]per[employer] Attendant 12/28/23 Rhonda Rao Stain [employer] Attendant 06/30/25
--- OUTSIDE RECORDS SUMMARY | 2025-08-29 15:12 | XMS_ITS | Encounter Summary ---
Author Organization [facility] Address [address] [address] Phone Care Team Providers Care Development Coordinator Name Role Phone Ana Gruber NP Primary Care Provider Reason for Visit * Reason Comments Med Refill Encounter Details Date Type Department Care Team (Late st Contact Info) Description 08/04/2024 Refill [facility] [address] [place] [address] Haroon Ramos MD [address] [address] Social History Tobacco Use Types [...] Office Visit [facility] [address] [place] [facility] [place] [address] Haroon Ramos MD [address] [address] documented as of this encounter Visit Diagnoses Not on filedocumented in this encounter Care Teams Development Coordinator Relationship Specialty Start Date End Date Ana Gruber NP [address] [place] [phone] PCP - General Nurse Practitioner 05/17/24 documented as of this encounter
== END 2025-08-29 11:58 | disposition home or self-care (01) ==
LOC: HO.HGS 11:29
PROVIDERS: PCP Nurse Practitioner Primary Care
DX: Z98.890 Other specified postprocedural states (principal); Z87.19 Personal history of other diseases of the digestive system
CPT/HCPCS: 99024

== ENCOUNTER → 2025-08-29 11:28 | Outpatient (BNVA) | payer MEDICAID, SELFPAY | PROVIDERS: PCP Nurse Practitioner Primary Care | DX: Z48.815 Encounter for surgical aftercare following surgery on the digestive system (principal); R10.31 Right lower quadrant pain; Z98.890 Other specified postprocedural states; Z87.19 Personal history of other diseases of the digestive system | CPT/HCPCS: 99212 ==

== ENCOUNTER 2025-09-14 12:15 | Outpatient (REF) | payer MEDICAID, SELFPAY ==
--- OUTSIDE RECORDS SUMMARY | 2025-09-14 11:15 | XMS_ITS | Encounter Summary ---
Author Organization [employer] Address [address] [place] [address] [address] [place] [address] Care Team Providers Care Registered Nurse Step Down Name Role Phone Ana Gruber Primary Care Provider [phone] Reason for Referral * Imaging (Urgent) - Authorized Specialty Diagnoses / Procedures Referred By Contac t Referred To Contact Radiology Diagnoses Abnormal endometrial ultrasound Procedures US Pelvis Transvaginal Verena Colon CNM [address] [place] [address] Phone: tel: fax: [address] [address] Phone: tel: fax: Referral ID Status Reason Start Date Expiration Date V isits Requested Visits Authorized [id number] Authorized 09/14/2025 09/14/2026 1 1 * Imaging (Urgent) - Authorized Specialty Diagnoses / Procedures Referred By Contac t Referred To Contact Radiology Diagnoses Abnormal endometrial ultrasound Procedures Us Pelvis complete Verena Colon CNM [address] [place] [address] Phone: tel: fax: [address] [address] Phone: tel: fax: Referral ID Status Reason Start Date Expiration Date V isits Requested Visits Authorized [id number] Authorized 09/14/2025 09/14/2026 1 1 * Imaging (Routine) - Closed Specialty Diagnoses / Procedures Referred By Mayela mcelroy Referred To Contact Radiology Diagnoses Breast cancer screening by mammogram Procedures BI Mammogram Screening Tomosynthesis Bilateral Verena Colon CNM [address] [place] [address] Phone: tel: fax: [facility] [address] [place] [phone] Phone: tel: fax: Referral ID Status Reason Start Date Expiration Date Visits Re quested Visits Authorized [id number] Closed 09/14/2025 09/14/2026 1 1 Reason for Visit * Reason Comments Follow-up Encounter Details Date Type Department Care Team (Late st Contact Info) Description 09/14/2025 11:15 AM EST Office Visit [facility] MEDICINE [address], [place] [phone] Verena Colon CNM [address] [place] [address] Pelvic pain (Primary Dx); Vaginal discharge; Breast cancer screening by mammogram; Abnormal endometrial ultrasound Social History Tobacco Use Types Packs/Day Years Used Date Smoking Tobacco: Never Passive Smoke Exposure: Never Smokeless Tobacco: Never Alcohol Use Standard Drinks/Week Comments Never 0 (1 standard drink = 0.6 oz pur e alcohol) Depression Answer Date Recorded Patient Health Questionnaire-9 Score 14 09/14/2025 Patient Health Questionnaire-9 Score 14 09/14/2025 Last PHQ-9: Questionnaire Data Not on file 1 11/15/2024 Housing Stability Answer Date Recorded What is your housing situati on today? I have housing today, but I am worried about losing housing in the future 09/14/[address] you li ve. Do you have problems with any of the following? Inadequate heat 09/14/2025 Food Insecurity Answer Date Recorded Within the past 12 months, y ou worried that your food would run out before you got money to buy more: Often true 09/14/2025 Within the past 12 months,th e food you bought just didn't last and you didn't have enough money to get more: Often true 08/2025 Transportation Answer Date Recorded In the past 12 months, has l ack of transportation kept you from medical appts, meetings, work or from getting things needed for daily living? Yes, it has kept me from non-medical meetings, work, or getting things that I need 09/14/2025 Utilities Answer Date Recorded In the past 12 months, has t he electric, gas, oil or water company threatened to shut off services in your home? Yes 09/14/2025 Depression Answer Date Recorded Patient Health Questionnaire-2 Score 3 09/14/2025 Internet Access Answer Date Recorded Internet Access Q1 No 09/14/2025 Internet Access Q2 I cannot afford it 09/14/2025 Comments No Sex and Gender Information Value Date Recorded Sex Assigned at Female 08/04/2022 10:36 AM EDT Legal Sex Female 10:36 AM EDT Gender Identity Female 08/04/2022 10:36 AM EDT Sexual Orientation Straight 08/04/2022 10 :36 AM EDT documented as of this encounter Last Filed Vital Signs Vital Sign Reading Time Taken Comments Blood Pressure 130/80 09/14/2025 11:31 AM EST Pulse 65 09/14/2025 11:31 AM EST Temperature 36.8 C (98.3 F) 09/14/2025 11:31 AM EST Respiratory Rate 16 09/14/2025 11:31 AM EST Oxygen Saturation 99% 09/14/2025 11:31 AM EST Inhaled Oxygen Concentration - - Weight 87.5 kg (193 lb) 09/14/2025 11:31 AM EST Height - - Body Mass Index 30.23 05/24/2025 3:57 PM EDT documented in this encounter Functional Status * Over the past 2 weeks, how often have you been bothered by any of the following problems? Question Answer Date of Assessment Author Patient Health Questionnaire -2 Score 3 09/14/2025 12:36 PM EST Joan Burns MA * Little interest or pleasure in doing things Answer Date of Assessment Author Nearly every day 09/14/2025 12:36 PM Joan Vernon MA * Feeling down, depressed, or hopeless Answer Date of Assessment Author Not at all 09/14/2025 12:36 PM Joan Vernon MA * Trouble falling or staying asleep, or sleeping too much Answer Date of Assessment Author Not at all 09/14/2025 12:36 PM Joan Vernon MA * Feeling tired or having little energy Answer Date of Assessment Author Nearly every day 09/14/2025 12:36 PM Joan Vernon MA * Poor appetite or overeating Answer Date of Assessment Author Not at all 09/14/2025 12:36 PM Joan Vernon MA * Feeling bad about yourself - or that you are a failure or have let yourself or your family down Answer Date of Assessment Author More than half the days 09/14/2025 12:36 PM Joan Vernon MA * Trouble concentrating on things, such as reading the newspaper or watching television Answer Date of Assessment Author Nearly every day 09/14/2025 12:36 PM Joan Vernon MA * Moving or speaking so slowly that other people could have noticed? Or the opposite - being so fidgety or restless that you have been moving around a lot more than usual. Answer Date of Assessment Author Not at all 09/14/2025 12:36 PM Joan Vernon MA * Thoughts that you would be better off or hurting yourself in some way Answer Date of Assessment Author Nearly every day 09/14/2025 12:36 PM Joan Vernon MA * Patient Health Questionnaire-9 Score Answer Date of Assessment Author 14 09/14/2025 12:36 PM Joan Vernon MA * How difficult have these problems made it for you to do your work, take care of things at home, or get along with other people? Answer Date of Assessment Author Extremely difficult 09/14/2025 12:36 PM Joan Johnson MA documented as of this encounter Progress Notes * Verena Colon CNM - 09/14/2025 11:15 AM EST Subjective Patient ID: Ayla Evans is a 55 y.o. female who presents for [facility] [employer] visit Pap NIL/HPV neg 09/2024. Previously followed by urogyn for stress urinary incontinence/prolapse. Didn't find PT or pessary helpful. Mammogram BIRADS 1, cat b 04/2024. Had hernia repair last month. Pelvic ultrasound 04/2024 with possible EM polyp. Referred to [facility] for evaluation. She doesn't think she had appointment. Denies bleeding. Still notes occasional pelvic pain. 1 chcf AMAB partner, notes cramping pain with sex so hasn't been having sex. Self treated for yeast a few weeks ago, thinks symptoms largely resolved. Declines breast exam today but would like pelvic exam. Under increased stress due to loss of job. Friend who is struggling financially is staying with herwhich has been challenging. Declines services, but would like help with food/housing. Review of Systems Genitourinary: Positive for dyspareunia and pelvic pain. Negative for dysuria, vaginal bleeding, vaginal discharge and vaginal pain. Objective BP 130/80 (BP Location: Left arm, Patient Position: Sitting, BP Cuff Size: Adult) Pulse 65 Temp98.3 ??F (36.8 ??C) (Oral) Resp 16 Wt 193 lb (87.5 kg) SpO2 99% BMI 30.23 kg/m?? Physical Exam Accounting Recruiter present: declines bi tester. Constitutional: Appearance: Normal appearance. Abdominal: Tenderness: There is no abdominal tenderness. Comments: Hyperpigmented scar around umbilicus Genitourinary: General: Normal vulva. Labia: Right: No rash, tenderness, lesion or injury. Left: No rash, tenderness, lesion or injury. Vagina: Normal. No signs of injury and foreign body. No vaginal discharge, erythema, tenderness, bleeding or lesions. Cervix: No cervical motion tenderness, discharge, friability, lesion, erythema, cervical bleeding or eversion. Uterus: Normal. Not enlarged and not tender. Adnexa: Right adnexa normal and left adnexa normal. Right: No mass, tenderness or fullness. Left: No mass, tenderness or fullness. Comments: Tenderness right piriformis, possible obturator. Neurological: Mental Status: She is alert. Psychiatric: Mood and Affect: Mood normal. Behavior: Behavior normal. Assessment/Plan Diagnoses and all orders for this visit: Pelvic pain With component of pelvic floor dysfunction. Pelvic ultrasound ordered to followup on previous abnormal endometrial ultrasound. Taught diaphragmatic breathing, given piriformis stretch. Will reassess in 2 weeks. Vaginal discharge Bacterial vaginosis swab sent. Will treat positive results. Breast cancer screening by mammogram - BI Mammogram Screening Tomosynthesis Bilateral; Future Mammogram ordered. Abnormal endometrial ultrasound - Us Pelvis complete; Future - US Pelvis Transvaginal; Future Pelvic ultrasound ordered. Will refer to [facility] as indicated. [place] to [facility] referral. Notes worsening vasomotor symptoms recently. She stopped gabapentin as it wasn't helping for pain. Could revisit using this. If not, will assess for other treatment options at next visit. documented in this encounter Miscellaneous Notes * Addendum Note - Verena Colon CNM - 09/14/2025 11:15 AM ESTAddended by: VERENA COLON on: 09/14/2025 12:23 PM Modules accepted: Orders documented in this encounter Plan of Treatment Upcoming Encounters Date Type Department Care Team (Late st Contact Info) Description 10/11/2025 9:00 AM EST Office Visit [facility] MEDICINE [address] [place] [address] Verena Colon CNM [address] [place] [address] Scheduled Orders Name Type Priority Associated Diagnoses Orde r Schedule BI Mammogram Screening Tomosynthesis Bilateral Imaging Routine Breast cancer screening by mammogram Expected: 09/14/2025, Expires: 11/15/2026 Us Pelvis complete Imaging Urgent Abnormal endometrial ultrasound Expected: 09/14/2025, Expires: 09/14/2026 US Pelvis Transvaginal Imaging Urgent Abnormal endometrial ultrasound Expected: 09/14/2025, Expires: 09/14/2026 Bacterial Vaginosis Panel Microbiology Routine Vaginal discharge Ordered: 09/14/2025 documented as of this encounter Visit Diagnoses Diagnosis Pelvic pain- Primary Vaginal discharge Leukorrhea, not specified as infective Breast cancer screening by mammogram Abnormal endometrial ultrasound documented in this encounter Additional Health Concerns Assessment Noted Time PHQ-9 Depression Total Score: 14 025 12:36 PM EST documented as of this encounter Care Teams Registered Nurse Step Down Relationship Specialty Start Date End Date Ana Gruber ANP [address] [place] [address] PCP - General Family Medicine 05/23/21 Tabitha Altamirano [employer] Preserve Manager 12/28/23 Rhonda Rao [employer] Preserve Manager 06/30/25 documented as of this encounter
--- OUTSIDE RECORDS SUMMARY | 2025-09-14 23:28 | XMS_ITS | Clinical Summary ---
Author Organization [employer] Address [address] [place] [address] Care Team Providers Care Discovery Guide Name Role Phone Malu Oneil JESSICA Primary Care Provider [phone] Allergies Active Allergy Reactions Criticality Noted Date Comments Apple Juice 10/14/2019 Black Iszsdz-Vegzbykhjm-H Quad 04/27/2025 Grape Seed 10/14/2019 Latex Rash [...] and at bedtime (pain). 150 g 3 5 Active loratadine (Claritin) 10 MG tablet Take 1 tablet (10 mg) by mouth Once per day. 30 tablet 11 5 09/12/20 26 Active Active Problems Problem Noted Date Diagnosed [...] currently on medication prescribed by psychiatry at [facility]. Lack of social support is identified as barrier. Explored coping strategies that she can use and practice breathing exercises during session. clinician engaged pt with active/reflective listening. Provided a safe space for patient to share her emotions and fears. Reviewed and assessed for risk, current stressors and protective factors using open-ended questions. Provided [facility] number and crisis contact information. Intake forms completed with [facility] today. Patient will see a therapist within [...] will benefit from options: 1-Discuss concerns with [facility] therapist and request he make a referral for [facility] psychological evaluation, 2- Contact [facility] at [phone] to schedule an evaluation. At this time Ayla Evans meets criteria for Visit Diagnoses: Problem List Items Addressed This Visit Other Major depressive disorder, recurrent (CMS/HCC) Patient ready to address current needs Yes Strengths include- Ayla is connected to care management and therapy for supports PLAN: 1. Follow up with [facility]: Recommended for follow-up: as needed. Contact information was shared 2. Patient goal is to participate in psychological testing 3. Behavioral Recommendations a. Discuss concerns with [facility] therapist and request he make a referral for [facility] psychological evaluation b. Contact [facility] at [phone] to schedule an evaluation. 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 Non compliant Encounters Date Type Department Care Team Description 09/14/2025 11:15 AM EST Office Visit [address] [address] Violet Colon CNM Pelvic pain (Primary Dx); Vaginal discharge; Breast cancer screening by mammogram; Abnormal endometrial ultrasound 09/14/2025 Patient Outreach [address] [address] Malu Oneil ANP Care Coordination (CHW outreach for [facility] housing search-referral completed ) 09/14/2025 Travel 09/13/2025 Telephone [facility] [address] [address] Joan Burns [place] 09/12/[address] [address] Malu Oneil ANP 07/26/[address] [address] Malu Oneil ANP 07/24/2025 5:40 PM EDT [facility] [address] [address] Darlyn Kat FNP Vaginal itching (Primary Dx); Vaginal discharge; Xerosis cutis 07/24/2025 Travel 07/13/2025 Orders Only GENERIC EXTERNAL DATA DEPARTMENT Provider, Generic External Data 07/10/[address] [address] Malu Oneil ANP Appointment Request 07/10/2025 Travel 06/30/2025 Telephone [facility] [address], [place] [phone] Cat Badillo Care Coordination ([facility] Care Plan) 06/27/2025 Telephone [facility] [address] [address] Joan Burns [place] from Last 3 Months [...] (193 lb) 09/14/2025 11:31 AM EST Height 170.2 cm (5' 7 ) 05/24/2025 3:57 PM EDT Body Mass Index 30.23 05/24/2025 3:57 PM EDT Plan of Treatment Upcoming Encounters Date Type Department Care Team (Late st Contact Info) Description 10/11/2025 9:00 AM EST Office Visit [facility] [address] [place] [address] Violet Colon, [facility] [address] [place] [address] Health Maintenance Due Date Last Done Comments CT Colonography 1969 FIT DNA/Cologuard 1969 FIT 1970 FOBT 1970 Sigmoidoscopy 1969 HIB Vaccines (1 of 1 - Risk 1-dose series) 09/06/1970 Meningococcal Vaccine (1 - Risk 2-dose series) 1971 Meningococcal B Vaccine (1 of 4 - Increased Risk) 1979 Pneumococcal Vaccine: 50+ Years (1 of 2 - PCV) 1988 RSV Patients and Patients Aged 60 years or older (1 - Risk 50-74 years 1-dose series) 2019 Zoster Vaccines (1 of 2) 2019 Mammogram 04/22/2025 04/22/2024, 04/04, 09/19/2022, Additional history exists COVID-19 Vaccine ( season) 2025 Influenza Vaccine (#1) 2025 Diabetes: Hemoglobin A1C 09/06/2025 024, 09/03/2023, 02/27/2023, Additional history exists Depression Monitoring 03/15/2026 09/14/2025, 025 Disability Screening 09/08/2026 09/08/2025 Alcohol/Substance Use Screening 09/14/2026 09/14/2025 SDOH Screening 09/14/2026 09/14/2025 Tobacco Screening 09/14/2026 09/14/2025 Lipid Panel 04/06/2028 04/06/2023, 06/06, 07/18/2020 Cervical [...] Media Lot # [id number] Lot# Expiration Date [id number] Urine (Urine, Random) 07/24/2025 6:39 PM EDT Darlyn Okhipo RESIDENTIAL BUILDER POINT OF CARE TEST ENTER/EDIT ORDERABLES Final Result * Bacterial Vaginosis Panel (07/24/2025 6:38 PM EDT) TRICHOMONAS VAGINALIS DETECTION BY PCR NOT DETECTED Not Detect [facility] BACTERIAL VAGINOSIS DETECTION BY PCR NEGATIVE Negative [facility] Comment:The BV organism targ ets [...] DETECTION BY PCR NOT DETECTED Not Detect [facility] Jess glab krusei PCR NOT DETECTED Not Detect [facility] Swab Vaginal structure / Unknown 07/24/2025 6:38 PM EDT 07/25/2025 1:31 PM EDT DarlynKioskedo RESIDENTIAL BUILDER LAB MICROBIOLOGY - GENERAL ORD ERABLES Final Result Performing Organization Address City/[facility]/ZIP Co de Phone Number [facility] [address] [place] [phone] * Urine Culture Routine (07/24/2025 12:00 AM EDT) Urine Urine specimen obtained by clean catch procedure / Unknown 07/24/2025 07/24/2025 Comment:UACC Narrative [facility] - 07/26/2025 2:28 PM EDT Urine Culture Report Result Urine Culture < 10,000 cfu/ml Specimen Source: Urine clean [facility] MICROBIOLOGY - GENERAL ORD ERABLES Final Result Performing Organization Address City/[facility]/ZIP Co de Phone Number [facility] [address] [place] [phone] * Gross and Microscopic Level 3 (07/13/2025 8:10 AM EDT) 07/13/2025 8:10 AM EDT 07/13/2025 10:30 AM EDT Mateusz [facility] - 07/14/2025 5:03 PM EDT ----- ------- Name: Ronan EvansIrvinAyla Age/Sex: 55/F : 1970 Unit#: [id number] Attend Dr: Stephane Yang MD Re07/13/25 Status: [facility] Location: RAJENDRA Disch: ----- ------- SPEC : [id number] RECD: 07/13/25 STATUS: DIANE ABERNATHY NUM: [id number] LITA: 07/13/[address]: Stephane Yang MD ENTERED: 07/13/25-4 SP TYPE: Surgical OTHR DR: MALU ONEIL [...] seen. No cysts or nodules are identified. Specimen Collector sections are submitted for microscopic examination, 3 pieces in cassette A1. ([facility]) IHC S/NG Disclaimer NOTE: Unless otherwise stated, all tissue is formalin-fixed and paraffin-embedded. Some or all of the immunohistochemical tests reported herein may have been developed and their performance characteristics determined by [facility]. They have not been cleared or approved by the U.S. Food and Drug Administration (FDA). However, the FDA has determined that such clearance or approval is not necessary. This laboratory is certified under the Clinical Laboratory Improvement Amendments of 1988 (CLIA) as qualified to perform high complexity clinical laboratory testing. Copies To: Stephane Yang MD [facility] General Surgeons [address] [place] [id number] CONTINUED ON NEXT PAGE ----- ------- Name: Ronanjuanita EvansAyla Age/Sex: 55/F : 1970 Unit#: [id number] Attend Dr: Stephane Yang MD Re07/13/25 Status: [facility] Location: [facility] Disch: ----- ------- SPEC : [id number] RECD: 07/13/25 STATUS: DIANE ABERNATHY NUM: [id number] LITA: 07/13/[address]: Stephane Yang MD ENTERED: 07/13/252 SP TYPE: Surgical OTHR DR: MALU ONEIL NP ORDERED: Gross Micro L3 Copies To: (Continued) MALU ONEIL NP [facility] [address] [place] [address] ----- ------- Signed (signature on file) Bentley Paredes MD 07/14/251702 ----- ------- END OF REPORT Generic External Data Provider LAB CYTOLOGY STEFANY GUNN Final Result [facility] [address] [place] [phone] [phone] * Pap Smear (09/14/2024 11:17 AM EST) Swab Cervix uteri structure / Unknown 09/14/2024 11:17 AM EST 09/15/2024 2:10 PM EST Narrative [facility] - 09/21/2024 10:54 AM EST ----- ------- Name: Ayla Anderson Age/Sex: 54/F : 1970 Unit#: [id number] Attend Dr: VIOLET COLON CNM Re09/14/24 Status: DEP REF Location: [facility] Disch: ----- ------- SPEC : [id number] RECD: 09/15/24 STATUS: DIANE ABERNATHY NUM: [id number] LITA: 09/14/24-[address]: VIOLET COLON [facility] ENTERED: 09/15/24 SP TYPE: Pap Smr [facility] DR: ORDERED: Pap Smear Interpretation Satisfactory for evaluation. Negative for intraepithelial lesion or malignancy. No endocervical cells seen. HPV High Risk: Negative HPV Genotyping 16: Negative HPV Genotyping 18: Negative Clinical Information LMP: Postmenopausal Previous PAP test: Unknown date/findings Material Received ThinPrep-Cervical ----- ------- Signed (signature on file) ALEXANDR Shell (ASC) 09/21/24 1054 ----- ------- END OF REPORT Violet Ricalos [facility] CYTOLOGY ORDERABLES F inal Result [facility] [address] [place] [phone] * HPV mRNA E6/E7 w/Reflex to HPV Genotypes 16, 18/45 (09/14/2024 12:00 AM EST) Historical Provider MD LAB CYTOLOGY ORDERABLES F inal Result * POCT HGB A1C (09/06/2024 10:31 AM EST) Hemoglobin A1C 6.0 4.0 - 6.0 % QC Media Lot # [id number] Lot# Expiration Date [id number] Blood 09/06/2024 10:3 1 AM EST Malu LOPEZ POINT OF CARE TEST ENTER/EDIT OR DERABLES Final Result * BI Mammogram Screening Tomosynthesis Bilateral (04/22/2024 12:55 PM EDT) Anatomical Region Laterality Modality Breast Bilateral Mammography 04/22/2024 12:5 5 PM EDT Narrative 05/17/2024 2:55 PM EDT [address] [address] Mammography Report Signed Patient: Ayla Interiano MR#: [id number] : 1970 Acct:[id number] Age/Sex: 53 / F ADM Date: 04/22/24 Loc: . Attending Dr: Malu Oneil NP Ordering Physician: MALU ONEIL NP Results: 1Negative Date of Service: 04/22/24 Follow Up: 1 Year From Orig inal Mammogram Procedure(s): MM tomosynthesis screening BI Accession Number(s): [id number] cc: ONEIL,MALU AUTO TESTER EXAMINATION: MM SCREENING DIGITAL BREAST TOMOSYNTHESIS, BILATERAL [...] in OV> 05/17/24 1450 DD/ 1255 TD/TT: Poultry Packer: Procedure Note Donotuseinterpreter, Image - 05/17/2024 [place] [address] Mammography Report Signed Patient: Ayla InterianoMR#: [id number] : 1970Acct:[id number] Age/Sex: 53 / FADM Date: 04/22/24 Loc: . Attending Dr: Malu Oneil NP Ordering Physician: MALU ONEIL NPResults: 1Negative Date of Service: 04/22/24Follow Up: 1 Year From Orig inal Mammogram Procedure(s): MM tomosynthesis screening BI Accession Number(s): [id number] cc: MALU ONEIL NP EXAMINATION: MM SCREENING [...] in OV> 05/17/24 1450 DD/ 1255 TD/TT: Poultry Packer: Malu Allyn LOPEZ IMCharlotte BI PROCEDURES Final Result * Colonoscopy (04/14/2023) Pathologist [facility] Colonoscopy Normal Normal Narrative Glendy Dunn - 04/14/2023 Colonoscopy order added Historical Provider HEALTH MAINTENANCE Final Result * (ABNORMAL) Lipid Panel, Standard (04/06/2023 12:58 PM EDT) Cholesterol, Total 268(H) <200 mg/dL [facility] HDL Cholesterol 67 > OR = 50 mg/dL [facility] Triglycerides 136 <150 mg/dL [facility] LDL Cholesterol 174(H) mg/dL (calc) [facility] [employer] Comment: Reference range: <100 Desirable range <100 mg/dL for primary prevention; <70 mg/dL for patients with CHD or diabetic patients with > or = 2 CHD risk factors. LDL-C is now calculated using the Emmie calculation, which is a validated novel method providing better accuracy than the Friedewald equation in the estimation of LDL-C. [employer]moinic HUFF et al. WALT. 2013;310(19): 8482-4138 (http://education.[employer]/faq/OEW092) Chol/HDLC Ratio 4.0 <5.0 (calc) [facility] Non-HDL Cholesterol 201(H) <130 mg/dL (calc) [facility] Comment: For patients with diabetes plus 1 major ASCVD risk factor, treating to a non-HDL-C goal of <100 mg/dL (LDL-C of <70 mg/dL) is considered a therapeutic option. Blood Venous blood specimen / Unknown 04/06/2023 12:58 PM EDT 04/06/2023 12:59 PM EDT Narrative [facility] - 04/10/2023 12:19 PM EDT FASTING:NO FASTING: NO Critical access hospital LAB BLOOD ORDERABLES Final Resul t [facility] [address], [place] [address] [facility] [address] [place] [phone] * HEPATITIS C AB W/REFL TO HCV RNA, QN, PCR (07/18/2020 3:25 PM EDT) HEPATITIS C ANTIBODY NON-REACT CARO NON-REACT CARO [facility] INDEX 0.03 <1.00 [facility] Comment: HCV antibody was non-reactive. There is no laboratory evidence of HCV infection. In most cases, no further action is required. However, if recent HCV exposure is suspected, a test for HCV RNA (test code 55335) is suggested. For additional information please refer to http://[employer].Vidavee/faq/LZZ62f3 (This link is being provided for informational/ educational purposes only.) HEPATITIS C ANTIBODY NON-REACT CARO NON-REACT CARO [facility] INDEX 0.03 <1.00 [facility] Comment: HCV antibody was non-reactive. There is no laboratory evidence of HCV infection. In most cases, no further action is required. However, if recent HCV exposure is suspected, a test for HCV RNA (test code 62698) is suggested. For additional information please refer to http://[employer]/faq/WRA17z2 (This link is being provided for informational/ educational purposes only.) HEPATITIS C ANTIBODY NON-REACT CARO NON-REACT CARO [facility] INDEX 0.03 <1.00 [facility] Comment: HCV antibody was non-reactive. There is no laboratory evidence of HCV infection. In most cases, no further action is required. However, if recent HCV exposure is suspected, a test for HCV RNA (test code 17041) is suggested. For additional information please refer to http://Jobool/faq/CKM22a5 (This link is being provided for informational/ educational purposes only.) HEPATITIS C ANTIBODY NON-REACT CARO NON-REACT CARO [facility] INDEX 0.03 <1.00 [facility] Comment: HCV antibody was non-reactive. There is no laboratory evidence of HCV infection. In most cases, no further action is required. However, if recent HCV exposure is suspected, a test for HCV RNA (test code 90851) is suggested. For additional information please refer to http://Jobool/faq/WJO77q9 (This link is being provided for informational/ educational purposes only.) HEPATITIS C ANTIBODY NON-REACT CARO NON-REACT CARO [facility] INDEX 0.03 <1.00 [facility] Comment: HCV antibody was non-reactive. There is no laboratory evidence of HCV infection. In most cases, no further action is required. However, if recent HCV exposure is suspected, a test for HCV RNA (test code 37661) is suggested. For additional information please refer to http://Jobool/faq/LKS81y7 (This link is being provided for informational/ educational purposes only.) 07/18/2020 3:25 PM EDT us Historical Provider HISTORICAL/NON ORDERABLE LABS Final Result [facility] [address] * HIV AB/AG (10/17/2019 11:40 AM [...] of detection of this assay. The [employer] HIV Ag/Ab Combo assay result and supplemental assay results should be interpreted in conjunction with the patient's clinical presentation, history and other laboratory results. If the results are inconsistent with clinical evidence, additional testing is suggested to confirm the result. 10/17/2019 11:4 0 AM EST us Historical Provider HISTORICAL/NON ORDERABLE LABS Final Result Performing Organization Address City/State/[facility] Co al Phone Number [facility] [address] from Last 3 Months or Most Recently Relevant to Health Maintenance [facility] [employer] Care Teams Discovery Guide Relationship Specialty Start Date End Date Malu Oneil ANP [address] [place] [address] PCP - General Family Medicine 05/23/21 Tabitha Altamirano Certified CaregiverMachine Feed Operator 12/28/23 Rhonda Rao Certified CaregiverMachine Feed Operator 06/30/25
--- OUTSIDE RECORDS SUMMARY | 2025-09-14 23:28 | XMS_ITS | Encounter Summary ---
Author Organization [employer] Address [address] [place] [address] Care Team Providers Care Technical Specialist Cytogenetics Name Role Phone Ana Gruber JESSICA Primary Care Provider [phone] Encounter Details Date Type Department Care Team (Latest Contact Info) Description 09/14/2025 Travel Social History Tobacco Use Types Packs/Day [...] AM EDT documented as of this encounter Functional Status * Over the past 2 weeks, how often have you been bothered by any of the following problems? Question Answer Date of Assessment Author Patient Health Questionnaire -2 Score 3 09/14/2025 12:36 PM Joan Vernon MA * Little interest or pleasure in [...] Johnson MA documented as of this encounter Plan of Treatment Upcoming Encounters Date Type Department Care Team (Late st Contact Info) Description 10/11/2025 9:00 AM EST Office Visit [facility] [address] [place] [address] Verena Laureano CNM [address] [place] [address] documented as of this encounter Visit Diagnoses Not on filedocumented in this encounter Additional Health Concerns Assessment Noted Time PHQ-9 Depression Total Score: 14 025 12:36 PM EST documented as of this encounter Care Teams Technical Specialist Cytogenetics Relationship Specialty Start Date End Date Ana Gruber ANP [address] [place] [phone] PCP - General Family Medicine 05/23/21 Tabitha Altamirano Workers Compensation Claims AdjusterCane Weigher 12/28/23 Rhonda Rao Workers Compensation Claims AdjusterCane Weigher 06/30/25 documented as of this encounter
--- OUTSIDE RECORDS SUMMARY | 2025-09-14 23:28 | XMS_ITS | Clinical Summary ---
Author Organization [facility] Address [address] [place] [address] Care Team Providers Care Rn Visiting Name Role Phone Merary Kirby MD Primary [...] Asthma DX:Asthma Major depressive disorder, r ecurrent ([facility] V24) 09/15/2016 DX:Major depressive disorder , recurrent ([facility]) History of migraine headaches DX :History of migraine headaches; COMMENT: on Propranolol Hyperlipidemia 10/24/2016 DX:Hyperlipidemi a; COMMENT: LDL cholesterol 153, 08/27/2016. Carpal tunnel syndrome 01/29/2017 DX:Carpal tunnel syndrome GERD (gastroesophageal reflux disease) 01/29/2017 DX:GERD (gastroesophageal reflux disease) Adenomyosis 01/29/2017 DX:Adenomyosis; COMMENT: 07/2015 Declined both hormonal and surgical management. Bipolar disorder ([facility] V2 4, [facility] V28) 02/10/2017 DX:Bipolar disorder ([facility]) Lumbar stenosis 02/10/2017 DX:Lumbar stenos is; COMMENT: [...] Years Used Date Smoking Tobacco: Former Cigarettes 0 Q uit: 08/20/1991 Smokeless Tobacco: Never Alcohol [...] Depression Screening 10/05/2024 COVID-19 Vaccine ( - 2024-2 6 season) 2025 Influenza Vaccine (#1) 2025 DTaP,Tdap,and [...] Recently Relevant to Health Maintenance Care Teams Rn Visiting Relationship Specialty Start Date End Date Merary Kirby MD PCP - General Internal Medicine 08/20/16
--- OUTSIDE RECORDS SUMMARY | 2025-09-14 23:28 | XMS_ITS | Encounter Summary ---
Author Organization [employer] Address [address] [place] [address] Care Team Providers Care Farm General Manager Name Role Phone Ana Gruber Primary Care Provider [phone] Reason for Visit * Reason Comments Care Coordination CHW outreach for SDO H housing search-referral completed Encounter Details Date Type Department Care Team (Latest Contact Info) Description 09/14/2025 Patient Outreach [facility] [address] [place] [address] Ana Gruber ANP [address] [place] [address] Care Coordination (CHW outreach for SDOH housing search-referral completed ) Social History Tobacco Use Types Packs/Day Years [...] as of this encounter Progress Notes * Jose De Jesus Larios - 09/14/2025 12:58 PM EST CHW Jose De Jesus Larios, placed outbound call to patient for assistance with SDOH as a referral was received by the provider. Patient's name and were confirmed. Patient screened positive for the following SDOH housing insecurities. Patient states is staying with her friend but is searching for her own apartment. CHW referral patient to the list of application mail out to her address on file. Patient verbalizes understanding, and able to agree with plan to follow up herself. Patient educated on extended clinic hours on Mondays through Wednesdays, and Walk-In Urgent Care Located in [facility]. Patient provided with after-hours line for [facility], , which offer night time triage service and option to transfer to digital operations analyst provider if needed. documented in this encounter Plan of Treatment Upcoming Encounters Date Type Department Care Team (Late st Contact Info) Description 10/11/2025 9:00 AM EST Office Visit [facility] [address], [place] [phone] Verena Laureano CNM [address], [place] [phone] documented as of this encounter Visit Diagnoses Not on filedocumented in this encounter Additional Health Concerns Assessment Noted Time PHQ-9 Depression Total Score: 14 025 12:36 PM EST documented as of this encounter Care Teams Farm General Manager Relationship Specialty Start Date End Date Ana Gruber ANP [address] [place], [place] [phone] PCP - General Family Medicine 05/23/21 Tabitha Altamirano Machine AssistantPartition Assembly Machine Operator 12/28/23 Rhonda Rao Machine AssistantPartition Assembly Machine Operator 06/30/25 documented as of this encounter
--- OUTSIDE RECORDS SUMMARY | 2025-09-14 23:28 | XMS_ITS | Encounter Summary ---
Author Organization [employer] Address [address] [place] [address] Care Team Providers Care Studio Camera Operator Name Role Phone Allyn Ana LOPEZ Primary Care Provider [phone] Encounter Details Date Type Department Care Team ([facility] st Contact Info) Description 09/13/2025 Telephone [facility] [address] [place] [address] Joan Burns MA Social History Tobacco Use Types Packs/Day Years [...] encounter Miscellaneous Notes * Telephone Encounter - Joan Burns MA - 09/13/2025 9:29 AM EST Chart Prep Labs: not done Images: done Referrals: not applicable Vaccines due: Covid, Flu, PCV20, and RSV Screenings: mammogram Overdue care gaps: SBIRT, SDOH, and PHQ-9 documented in this encounter Plan of Treatment Upcoming Encounters Date Type Department Care Team (Late st Contact Info) Description 10/11/2025 9:00 AM EST Office Visit [facility] [address] [place] [address] Verena Laureano CNM [address] [place] [address] documented as of this encounter Visit Diagnoses Not on filedocumented in this encounter Additional Health Concerns Assessment Noted Time PHQ-9 Depression Total Score: 19 024 10:47 AM EST documented as of this encounter Care Teams Studio Camera Operator Relationship Specialty Start Date End Date Ana Gruber ANP [address] [place] [address] PCP - General Family Medicine 05/23/21 Tabitha Altamirano Income Tax PreparerApparel Embroidery Digitizer 12/28/23 Rhonda Rao Income Tax PreparerApparel Embroidery Digitizer 06/30/25 documented as of this encounter
--- OUTSIDE RECORDS SUMMARY | 2025-09-14 23:28 | XMS_ITS | Encounter Summary ---
Author Organization [employer] Address [address] [facility] [address] [place] [address] Care Team Providers Care Human Resources Temp Name Role Phone Ana Gruber Primary Care Provider [phone] Reason for Visit * Reason Onset Date Comments Medication Question 09/12/2025 Encounter Details Date Type Department Care Team ([facility] st Contact Info) Description 09/12/[address] [facility] [address] [place] [address] Ana Gruber ANP [address] [place] [address] Social History Tobacco Use Types Packs/Day Years [...] as of this encounter Miscellaneous Notes * Addendum Note - Jazlyn Yen RN - 09/12/2025 4:05 PM ESTAddended by: JAZLYN YEN on: 09/12/2025 04:05 PM Modules accepted: Orders * Telephone Encounter - Jazlyn Yen RN - 09/12/2025 4:03 PM EST Telephone call placed to pt to discuss below message. Pt does not want benadryl as she doesn't wantto be drowsy. Requesting a daily non-drowsy allergy medication. * Telephone Encounter - Mylene Limon - 09/12/2025 11:20 AM EST Patient walked in requesting allergy medication. Patient has guests at home who have pets and Patient is allergic. documented in this encounter Plan of Treatment Upcoming Encounters Date Type Department Care Team (Late st Contact Info) Description 10/11/2025 9:00 AM EST Office Visit [facility] [address] [place] [address] [phone] Verena Laureano CNM [address] [place], [place] [phone] documented as of this encounter Visit Diagnoses Not on filedocumented in this encounter Additional Health Concerns Assessment Noted Time PHQ-9 Depression Total Score: 19 024 10:47 AM EST documented as of this encounter Care Teams Human Resources Temp Relationship Specialty Start Date End Date Ana Gruber ANP [address] [place] [address] PCP - General Family Medicine 05/23/21 Tabitha Altamirano Lace StripperCustodial Maintenance Worker 12/28/23 Rhonda Rao Lace StripperCustodial Maintenance Worker 06/30/25 documented as of this encounter
--- OUTSIDE RECORDS SUMMARY | 2025-09-14 23:28 | XMS_ITS | Encounter Summary ---
Author Organization [employer] Address [address] [facility] [address] [place] [address] Care Team Providers Care Operative Supervisor Name Role Phone Ana Gruber Primary Care Provider [phone] Reason for Visit * Reason Onset Date Comments Nurse Triage 10/12/2024 Encounter Details Date Type Department Care Team ([facility] st Contact Info) Description 10/12/2024 Telephone [facility] [address] [place] [address] Ana Gruber ANP [address] [place] [address] Nurse Triage Social History Tobacco Use Types [...] Description 10/11/2025 9:00 AM EST Office Visit [facility] [address] [place] [address] Verena Laureano CNM [address] [place] [address] documented as of this encounter Visit Diagnoses Not on filedocumented in this encounter Additional Health Concerns Assessment Noted Time PHQ-9 Depression Total Score: 19 024 10:47 AM EST documented as of this encounter Care Teams Operative Supervisor Relationship Specialty Start Date End Date Ana Gruber ANP [address] [place] [address] PCP - General Family Medicine 05/23/21 Tabitha Altamirano Icu Registered NurseManager Forensic 12/28/23 Rhonda Rao Icu Registered NurseManager Forensic 06/30/25 documented as of this encounter
--- OUTSIDE RECORDS SUMMARY | 2025-09-14 23:28 | XMS_ITS | Encounter Summary ---
Author Organization [email or web address] Address [address] [place] [address] Care Team Providers Care Ecclesiastical Worker Name Role Phone Ana Gruber JESSICA Primary Care Provider [phone] Encounter Details Date Type Department Care Team ([facility] st Contact Info) Description 01/31/2025 Orders Only [facility] [address] [place], [place] [phone] Glendy Dunn Social History Tobacco Use Types [...] Description 10/11/2025 9:00 AM EST Office Visit [facility] [address] [place] [phone] Verena Laureano CNM [address] [place] [address] documented as of this encounter Procedures Procedure [...] documented as of this encounter Care Teams Ecclesiastical Worker Relationship Specialty Start Date End Date Ana Gruber ANP [address] [place] [id number] PCP - General Family Medicine 05/23/21 Tabitha Altamirano Forester SilvicultureSocial Sciences Instructor 12/28/23 Rhonda Rao Forester SilvicultureSocial Sciences Instructor 06/30/25 documented as of this encounter
--- OUTSIDE RECORDS SUMMARY | 2025-09-14 23:28 | XMS_ITS | Clinical Summary ---
Author Organization [facility] Address [address] [place] [address] Care Team Providers Care Cps Team Lead Name Role Phone Unavailable Primary Care Provider [...]
[2025-09-15 09:51] LABS: Bacterial Vaginosis PCR NEGATIVE (Negative); Candida Group PCR NOT DETECTED (Not Detect); Candida glab krusei PCR NOT DETECTED (Not Detect); Trichomonas vaginalis PCR NOT DETECTED (Not Detect)
== END 2025-09-14 12:16 ==
LOC: HO.HHCLNP 12:15
PROVIDERS: Visit Provider Advanced Practice Midwife
DX: N89.8 Other specified noninflammatory disorders of vagina (principal)
CPT/HCPCS: 81515